=== PATIENT | female | born 1955 | race Caucasian/White ===

== ENCOUNTER 2019-05-30 05:06 | Day surgery (SDC) | payer BC, SELFPAY ==
[2019-05-30] VITALS (8 sets, daily range): BP systolic 123–158; BP diastolic 75–99; PULSE 55–85; RESP 14–19; TEMP 36.9; O2SAT 95–98; BMI 34.3
--- NOTE | 2019-05-30 07:00 | ECG_ITS ---
Measurements Intervals [place] Rate: 90 P: [place]: 0 QRS: -3 QRSD: 90 T: -10 QT: 353 QTc: 432 Interpretive Statements ATRIAL FLUTTER/TACHYCARDIA ANTEROSEPTAL INFARCT, AGE INDETERMINATE BASELINE ARTIFACT- II, III, AVR, AVL, AVF, V1-V3 ABNORMAL ECG Electronically Signed On 05-30-2019 8:42:12 PSYCHOLOGIST by Jacob Sanchez D.O.
[2019-05-30 07:56] LABS: Blood Urea Nitrogen 14 mg/dL (7-17); Calcium 9.8 mg/dL (8.4-10.2); Carbon Dioxide 23 mmol/L (22-30); Chloride 110 mmol/L (98-107); Estimated CRCL calculation 66 ml/min; Estimated Glomerular Filt Rate > 60; Glucose 115 mg/dL (65-105); Magnesium 2.1 mg/dL (1.6-2.3); Potassium 4.4 mmol/L (3.4-5.0); Sodium 139 mmol/L (137-145)
--- NOTE | 2019-05-30 08:03 | SUR.PREOP ---
0715 Patient arrives with daughter to [facility] room [address] Reese. Procedure explained, all questions answered, EKG taken patient remains in A Fib, IV started, labs drawn and sent, consent signed and vitals obtained.
--- NOTE | 2019-05-30 08:33 | P.SEDATION_ITS ---
Moderate Sedation Note-Pt Data Patient Data Diagnosis: A persistent atrial flutter History of atrial fibrillation Present Complaint: Palpitations Procedure to be performed/Plan: DC cardioversion Allergies Allergy/AdvReac Type Severity Reaction Status Date / Time erythromycin base Allergy Unknown Verified 05/03/18 13:18 hydrocodone Allergy Unknown Verified 05/03/18 13:18 Macrolide Antibiotics Allergy Unknown Verified 05/03/18 13:18 morphine Allergy Unknown Verified 05/03/18 13:17 Home Medications Medication Instructions Recorded Confirmed Type albuterol sulfate [ProAir HFA] 2 puff INHALATION QID PRN 05/29/19 05/29/19 H istory amlodipine 5 mg PO DAILY 05/29/19 05/29/19 History budesonide-formoterol [Symbicort] 2 puff INHALATION Q12H 05/29/19 05/29/19 History ferrous sulfate 325 mg PO TID 05/29/19 05/29/19 History multivitamin 1 tablet PO DAILY 05/29/19 05/29/19 History omeprazole magnesium [Prilosec OTC] 20 mg PO DAILY 05/29/19 05/29/19 History potassium chloride 10 meq PO DAILY 05/29/19 05/29/19 History rivaroxaban [Xarelto] 20 mg PO DAILY 05/29/19 05/29/19 History sotalol [Betapace] 80 mg PO BID 05/29/19 05/29/19 History Sedation/Anesthesia: No previous sedation/anesthesia problems (including family history). [facility] Family History Family History (Updated 05/03/18 @ 13:19 by DOCTOR UNKNOWN) Mother Family history of schizophrenia Hypertension Sibling Hypertension Father Patient's father is Social History Social History Smoking status: Never smoker Alcohol intake: never Mod Sed Physical Exam Physical Exam Pre Procedural Exam: Normal: Appearance, Neck, Throat, Airway, Lungs, Heart Size, Heart Rate, Neuro Exam and Extremities and Variation: Heart Rhythm Hours since solid foods: 12 Hours since liquid intake: 12 Internal Medicine - PN: Obj Da Vital Signs Vital Signs: Vital Signs - 24 hr 05/30/19 07:44 Temperature 36.9 C Pulse Rate 85 Respiratory Rate 16 Blood Pressure 148/99 H Pulse Oximetry 96 Labs CBC & Chem 7: 05/30/19 07:12 Labs: Laboratory Results - last 24 hr 05/30/19 07:12 Sodium 139 Potassium 4.4 Chloride 110 H Carbon Dioxide 23 BUN 14 Creatinine 0.70 Estim Creat Clear Calc 66 Estimated GFR > 60 Glucose 115 H Calcium 9.8 Magnesium 2.1 ASA Classification/Sedation ASA Classification/Sedation ASA Class: II Emergent: No Risks: Risks, benefits and alternatives explained and patient/family accepted p juan for sedation. Patient re-evaluated immediately prior to sedation.
--- NOTE | 2019-05-30 08:51 | P.PCNCC_ITS ---
Cardiac Cath Procedure Note Date of procedure:: 05/30/19 Performing physician:: Jacob Reese MD Indication:: Atrial flutter History of atrial fibrillation Brief clinical history:: 64-year-old woman with history of atrial fibrillation with cardioversion previously. Presents with symptomatic recurrence of palpitations and found to be in persistent atrial flutter Procedure Procedure performed:: DC cardioversion Sedation/Medication given:: Propofol in aliquots with total dosage of 70 mg Case start time 8:43 a.m. Case end time 8:46 a.m. Sedation provided by trained observer Viola Vincent RN Estimated blood loss:: 0 Procedure note:: The patient was admitted to the nitriles lab technician holding area in the postabsorptive state. Defibrillator patches were placed in AP position. She was then sedated with a total of 70 mg of propofol. Patient was then counter shock in a synchronized fashion with 200 joules x1 attempt restoring normal sinus rhythm Findings:: Successful gnosticist of sinus rhythm as detailed above Conclusion:: Successful uncomplicated DC cardioversion of atrial flutter to sinus rhythm using 200 joules x1 shock
--- NOTE | 2019-05-30 09:30 | ECG_ITS ---
Measurements Intervals [place] Rate: 58 P: -9 [place]: 187 QRS: 2 QRSD: 88 T: 33 QT: 410 QTc: 404 Interpretive Statements SINUS BRADYCARDIA ATRIAL PREMATURE COMPLEXES CANNOT RULE OUT SEPTAL INFARCT, AGE INDETERMINATE BORDERLINE ST-T WAVE ABNORMALITY- ANT/INF LEADS ABNORMAL ECG Electronically Signed On 05-30-2019 18:19:43 IDEA WORKER by Jacob Sanchez D.O.
--- NOTE | 2019-05-30 10:13 | SUR.PHASEII ---
1010 IV dc'd. Detailed written and verbal discharge instructions reviewed w patient and daughter at bedside.
--- NOTE | 2019-05-30 10:59 | SUR.PHASEII ---
1030 Pt taken out in wheelchair.
== END 2019-05-30 10:00 | disposition home or self-care (01) ==
PROVIDERS: Visit Provider Specialist
PROC: 5A2204Z Restoration of Cardiac Rhythm, Single (ICD-10-PCS; principal; 2019-05-30 08:30)
DX: I48.92 Unspecified atrial flutter (principal); Z79.01 Long term (current) use of anticoagulants
CPT/HCPCS: 36415; 80048; 83735; 92960; 93005; J2704; J7040

== ENCOUNTER 2019-09-25 08:54 | Outpatient (CLI) | payer BC, SELFPAY ==
--- NOTE | ~2019-09-25 | CT_ITS ---
EXAMINATION: CT abdomen pelvis w con DATE: 09/25/2019 09:35 INDICATION: Malignant neoplasm of the ascending colon. TECHNIQUE: Computed tomography (CT) of the abdomen and pelvis was performed back of Visipaque intrave nous contrast. The dose-length product was 695.00 mGy-cm. COMPARISON: PET/CT dated 01/28/2019 FINDINGS: Mild atelectasis at the lingula and right middle lobe. Heart size is normal. No pericardial or pleura l effusion. Liver, gallbladder, spleen, pancreas and bilateral adrenal glands are normal. No signific ant interval change in bilateral subcentimeter low-attenuation renal cysts. Postoperative change of p rior right hemicolectomy with right lower quadrant ileocolic anastomosis. Bowels are otherwise unrema rkable with no wall thickening or obstruction. Bladder is normal. 3.7 cm fibroid on the posterior wal l of the lower uterine segment. Bilateral adnexa are unremarkable. No free intraperitoneal gas or flu id. No pathologically enlarged abdominal or pelvic lymphadenopathy. The previously enlarged central m esenteric lymph node is no longer identified and has likely decreased in size. Small fat-containing i nfraumbilical ventral hernia. Mild lumbar spondylosis. IMPRESSION: 1. Resolution of the prior enlargement of a mesenteric lymph node which may have been reactive or res ponse to treatment of metastatic disease. No evident metastatic disease in the current study. Reviewed, dictated and finalized at location A. IMPRESSION: 1. Resolution of the prior enlargement of a mesenteric lymph node which may hav e been reactive or response to treatment of metastatic disease. No evident meta static disease in the current study.
[2019-09-25 09:22] LABS: Estimated Glomerular Filt Rate > 60
== END 2019-09-25 08:55 | disposition home or self-care (01) ==
LOC: ANHIMG 09:00
PROVIDERS: PCP Internal Medicine; Visit Provider Internal Medicine Hematology & Oncology
DX: C18.2 Malignant neoplasm of ascending colon (principal)
CPT/HCPCS: 36415; 74177; Q9967

== ENCOUNTER 2019-09-25 09:43 | Outpatient (CLI) | payer BC, SELFPAY ==
[2019-09-25 09:59] LABS: Basophils Absolute Auto 0.1 K/mm3 (0.0-0.1); Basophils Percent Auto 1.4 % (0.2-1.2); Eosinophils Absolute Auto 0.3 K/mm3 (0-0.3); Eosinophils Percent Auto 7.8 % (0-4.4); Hematocrit 38.7 % (37.0-47.0); Hemoglobin 12.8 g/dL (12.0-15.0); Immature Granulocyte Absolute 0.01 K/mm3 (0.00-0.031); Immature Granulocyte Percent A 0.2 % (0-0.5); Lymphocytes Absolute Auto 1.02 K/mm3 (0.9-3.2); Lymphocytes Percent Auto 24.2 % (18.3-44.2); Mean Corpuscular HGB Conc 33.1 g/dl (32-36); Mean Corpuscular Hemoglobin 30.5 pg (26-34); Mean Corpuscular Volume 92.1 fl (80-100); Mean Platelet Volume 9.5 fl (7.4-10.4); Monocytes Absolute Auto 0.5 K/mm3 (0.1-0.6); Monocytes Percent Auto 11.6 % (2.6-8.5); Neutrophils Absolute Auto 2.3 K/mm3 (1.3-6.7); Neutrophils Percent Auto 54.8 % (45.5-73.1); Platelet Count Result 184 k/mm3 (150-375); Red Cell Distribution Width 13.1 % (11.5-14.5); White Blood Count 4.2 K/mm3 (4.5-10.0)
[2019-09-25 12:18] LABS: Alanine Aminotransferase 59 U/L (4-35); Albumin Level 3.8 g/dL (3.5-5.1); Alkaline Phosphatase 317 U/L (38-126); Aspartate Amino Transferase 45 U/L (14-36); Bilirubin,Total 0.6 mg/dL (0.2-1.3); Blood Urea Nitrogen 14 mg/dL (7-17); Calcium 9.6 mg/dL (8.4-10.2); Carbon Dioxide 24 mmol/L (22-30); Chloride 106 mmol/L (98-107); Estimated Glomerular Filt Rate > 60; Glucose 103 mg/dL (65-105); Potassium 4.7 mmol/L (3.4-5.0); Sodium 138 mmol/L (137-145)
[2019-09-25 12:46] LABS: Carcinoembryonic Antigen 1.3 ng/mL (0.0-3.0)
[2019-09-26 17:36] LABS: GGT 118 U/L (3-65)
== END 2019-09-25 09:44 | disposition home or self-care (01) ==
PROVIDERS: PCP Internal Medicine; Visit Provider Internal Medicine Hematology & Oncology
DX: C18.2 Malignant neoplasm of ascending colon (principal)
CPT/HCPCS: 36415; 80053; 82378; 82977; 85025

== ENCOUNTER 2019-12-29 10:19 | Outpatient (CLI) | payer BC, SELFPAY ==
[2019-12-29 10:37] LABS: Basophils Absolute Auto 0.1 K/mm3 (0.0-0.1); Basophils Percent Auto 1.7 % (0.2-1.2); Eosinophils Absolute Auto 0.3 K/mm3 (0-0.3); Hematocrit 42.3 % (37.0-47.0); Hemoglobin 14.2 g/dL (12.0-15.0); Immature Granulocyte Absolute 0.01 K/mm3 (0.00-0.031); Immature Granulocyte Percent A 0.2 % (0-0.5); Lymphocytes Absolute Auto 1.29 K/mm3 (0.9-3.2); Lymphocytes Percent Auto 24.8 % (18.3-44.2); Mean Corpuscular HGB Conc 33.6 g/dl (32-36); Mean Corpuscular Hemoglobin 29.8 pg (26-34); Mean Corpuscular Volume 88.9 fl (80-100); Mean Platelet Volume 9.5 fl (7.4-10.4); Monocytes Absolute Auto 0.6 K/mm3 (0.1-0.6); Monocytes Percent Auto 11.5 % (2.6-8.5); Neutrophils Percent Auto 56.8 % (45.5-73.1); Platelet Count Result 212 k/mm3 (150-375); Red Blood Count 4.76 M/mm3 (4.2-5.4); White Blood Count 5.2 K/mm3 (4.5-10.0)
[2019-12-29 12:41] LABS: Alanine Aminotransferase 30 U/L (4-35); Albumin Level 4.2 g/dL (3.5-5.1); Alkaline Phosphatase 187 U/L (38-126); Anion Gap 13.8 mmol/L (7-16); Aspartate Amino Transferase 39 U/L (14-36); Bilirubin,Total 0.5 mg/dL (0.2-1.3); Blood Urea Nitrogen 19 mg/dL (7-17); Carbon Dioxide 23 mmol/L (22-30); Chloride 107 mmol/L (98-107); Estimated Glomerular Filt Rate > 60; Glucose 104 mg/dL (65-105); Potassium 4.8 mmol/L (3.4-5.0); Sodium 139 mmol/L (137-145)
[2019-12-29 13:12] LABS: Carcinoembryonic Antigen 0.7 ng/mL (0.0-3.0)
== END 2019-12-29 10:20 | disposition home or self-care (01) ==
PROVIDERS: Visit Provider Internal Medicine Hematology & Oncology
DX: C18.2 Malignant neoplasm of ascending colon (principal)
CPT/HCPCS: 36415; 80053; 82378; 85025

== ENCOUNTER 2020-04-01 08:24 | Outpatient (CLI) | payer BC, SELFPAY ==
--- NOTE | ~2020-04-01 | CT_ITS ---
EXAMINATION: CT abdomen pelvis w con DATE: 04/01/2020 09:12 INDICATION: Colon cancer restaging; history of malignant neoplasm of ascending colon TECHNIQUE: Computed tomography (CT) of the abdomen and pelvis was performed with 100 cc Omnipaque 350 intravenous contrast. Automated exposure control and iterative reconstruction technique were employe d. Exam dose: 959.44 mGy-cm total exam DLP. COMPARISON: 09/25/2019 CT abdomen pelvis FINDINGS: Mild discoid atelectasis or scarring at the lung bases. Cardiomegaly. No pericardial or pleural effusion. Fat-containing right foramen of Bochdalek hernia. There are multiple small stones in the dependent aspect of the gallbladder. Approximately 4 mm hepatic cyst. The liver, spleen, pancreas, and adrenal glands are otherwise unremarkable. 8.5 mm exophytic upper pole right renal cyst. Approximately 2 mm lower pole right renal cyst. 11 mm upper pole left renal cyst. 8 mm and 6.7 mm lower pole left renal cysts. No urinary tract calculus or hydroureteronephrosis. The urinary bladder is evacuated. The uterus and adnexal areas are unremarkable. Normal caliber of the abdominal aorta. No intraperitoneal or retroperitoneal or pelvic mass lesion or adenopathy or ascites. Status post right partial colectomy. No bowel obstruction, bowel wall thickening, pneumatosis or intr aperitoneal free air. Small fat-containing umbilical hernia. Infraumbilical fat-containing abdominal wall hernia. Included skeletal structures are unremarkable; no suspicious osteolytic or osteoblastic lesions. IMPRESSION: Cardiomegaly Cholelithiasis Small hepatic cysts Bilateral renal cysts Status post right partial colectomy Reviewed, dictated and finalized at Location A. Reviewed, dictated and finalized at location A.
[2020-04-01 09:01] LABS: Estimated Glomerular Filt Rate > 60
[2020-04-01 09:44] LABS: Basophils Absolute Auto 0.1 K/mm3 (0.0-0.1); Basophils Percent Auto 2.1 % (0.2-1.2); Eosinophils Absolute Auto 0.5 K/mm3 (0-0.3); Eosinophils Percent Auto 10.5 % (0-4.4); Hematocrit 40.4 % (37.0-47.0); Hemoglobin 13.6 g/dL (12.0-15.0); Immature Granulocyte Absolute 0.02 K/mm3 (0.00-0.031); Immature Granulocyte Percent A 0.4 % (0-0.5); Lymphocytes Absolute Auto 0.72 K/mm3 (0.9-3.2); Lymphocytes Percent Auto 15.1 % (18.3-44.2); Mean Corpuscular HGB Conc 33.7 g/dl (32-36); Mean Corpuscular Hemoglobin 30.1 pg (26-34); Mean Corpuscular Volume 89.4 fl (80-100); Mean Platelet Volume 9.5 fl (7.4-10.4); Monocytes Absolute Auto 0.5 K/mm3 (0.1-0.6); Monocytes Percent Auto 11.3 % (2.6-8.5); Neutrophils Absolute Auto 2.9 K/mm3 (1.3-6.7); Neutrophils Percent Auto 60.6 % (45.5-73.1); Platelet Count Result 204 k/mm3 (150-375); Red Blood Count 4.52 M/mm3 (4.2-5.4); Red Cell Distribution Width 12.8 % (11.5-14.5); White Blood Count 4.8 K/mm3 (4.5-10.0)
[2020-04-01 12:43] LABS: Alanine Aminotransferase 27 U/L (4-35); Albumin Level 3.9 g/dL (3.5-5.1); Alkaline Phosphatase 205 U/L (38-126); Anion Gap 10 mmol/L (8-16); Aspartate Amino Transferase 35 U/L (14-36); Bilirubin,Total 0.8 mg/dL (0.2-1.3); Blood Urea Nitrogen 14 mg/dL (7-17); Calcium 9.8 mg/dL (8.4-10.2); Carbon Dioxide 23 mmol/L (22-30); Chloride 106 mmol/L (98-107); Estimated Glomerular Filt Rate > 60; Glucose 106 mg/dL (65-105); Potassium 4.2 mmol/L (3.4-5.0); Sodium 139 mmol/L (137-145)
[2020-04-01 13:12] LABS: Carcinoembryonic Antigen 0.9 ng/mL (0.0-3.0)
== END 2020-04-01 08:25 | disposition home or self-care (01) ==
PROVIDERS: Visit Provider Internal Medicine Hematology & Oncology
DX: C18.2 Malignant neoplasm of ascending colon (principal); I51.7 Cardiomegaly; N28.1 Cyst of kidney, acquired; K76.89 Other specified diseases of liver; K80.20 Calculus of gallbladder without cholecystitis without obstruction
CPT/HCPCS: 74177; 80053; 82378; 85025; Q9967

== ENCOUNTER 2020-05-03 18:02 | Emergency (ER) | payer BC, SELFPAY ==
--- NOTE | ~2020-05-03 | CT_ITS ---
EXAMINATION: CT abdomen pelvis wo con DATE: 05/03/2020 19:14 INDICATION: Low back pain and hematuria TECHNIQUE: Computed tomography (CT) of the abdomen and pelvis was performed without intravenous contr ast. Automated exposure control and iterative reconstruction technique were employed. The dose-length product was 1014.37 mGy-cm. COMPARISON: 04/01/2020 FINDINGS: Mild left basilar atelectasis. Chronic fat containing right posterior diaphragmatic hernia. Borderlin e heart size with left atrial enlargement. No pericardial or pleural effusion. Liver, spleen, pancrea s and bilateral adrenal glands are normal. Multiple small calcified gallstones at the dependent aspec t of the fundus of the otherwise normal gallbladder. Small bilateral renal cysts the largest on the l eft measuring 12 mm. Kidneys and ureters are otherwise normal with no urolithiasis, hydroureteronephr osis or perinephric/ureteral stranding. Postoperative change right hemicolectomy with ileocolic anast omosis in the right lower quadrant. No abnormal bowel wall thickening or obstruction. Fibroid uterus. Bilateral adnexa are unremarkable. Partially decompressed bladder is normal. Minimal ascites in the pelvis. No abscess or free intraperitoneal gas. Small fat-containing umbilical and infraumbilical katie tral hernias. No pathologically enlarged abdominal or pelvic lymphadenopathy. Mild lumbar levoscolios is with mild spondylosis. IMPRESSION: 1. No acute intra-abdominal/pelvic process. 2. Cholelithiasis. 3. Fibroid uterus. Reviewed, dictated and finalized at location A. 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
[2020-05-03 18:04] VITALS: BP 163/119; PULSE 112; RESP 18; TEMP 36.2; O2SAT 100
[2020-05-03 18:27] LABS: Basophils Absolute Auto 0.1 K/mm3 (0.0-0.1); Basophils Percent Auto 1.6 % (0.2-1.2); Eosinophils Absolute Auto 0.2 K/mm3 (0-0.3); Eosinophils Percent Auto 2.8 % (0-4.4); Hemoglobin 12.6 g/dL (12.0-15.0); Immature Granulocyte Absolute 0.01 K/mm3 (0.00-0.031); Immature Granulocyte Percent A 0.2 % (0-0.5); Lymphocytes Absolute Auto 1.24 K/mm3 (0.9-3.2); Lymphocytes Percent Auto 21.6 % (18.3-44.2); Mean Corpuscular HGB Conc 34.1 g/dl (32-36); Mean Corpuscular Hemoglobin 29.9 pg (26-34); Mean Corpuscular Volume 87.9 fl (80-100); Mean Platelet Volume 10.2 fl (7.4-10.4); Monocytes Absolute Auto 0.9 K/mm3 (0.1-0.6); Monocytes Percent Auto 15.1 % (2.6-8.5); Neutrophils Absolute Auto 3.4 K/mm3 (1.3-6.7); Neutrophils Percent Auto 58.7 % (45.5-73.1); Platelet Count Result 189 k/mm3 (150-375); Red Blood Count 4.21 M/mm3 (4.2-5.4); Red Cell Distribution Width 12.9 % (11.5-14.5); White Blood Count 5.8 K/mm3 (4.5-10.0)
[2020-05-03 18:37] LABS: INR 3.9; Prothrombin Time 38.8 Seconds (11.1-14.7)
[2020-05-03 18:38] LABS: Partial Thromboplastin Time 41.1 SECONDS (22.3-36.8)
[2020-05-03 18:39] LABS: Add Urine Microscopic? YES; Appearance Urine Clear (Clear); Bacteria Urine Trace /hpf; Bilirubin Urine Negative (Negative); Blood Urine 3+ (Negative); Color Urine Red (Yellow); Glucose Urine UA Negative (Negative); Ketones Urine Negative (Negative); Leukocyte Esterase Ur Trace LEU/UL (Negative); Mucus Urine Rare /lpf; Nitrate Urine Negative (Negative); Protein Urine 2+ mg/dL (Negative); RBC Urine >75 /hpf (0-2); Specific Grav Ur 1.011 (1.001-1.035); Squamous Epithelial Cell Urine Occasional /hpf (Few); Urobilinogen Urine Negative mg/dL (<2.0); WBC Urine 21-30 /hpf
[2020-05-03 18:40] LABS: Anion Gap 9 mmol/L (8-16); Blood Urea Nitrogen 25 mg/dL (7-17); Calcium 9.2 mg/dL (8.4-10.2); Carbon Dioxide 20 mmol/L (22-30); Chloride 106 mmol/L (98-107); Estimated CRCL calculation 49 ml/min; Estimated Glomerular Filt Rate 55; Glucose 116 mg/dL (65-105); Potassium 4.5 mmol/L (3.4-5.0); Sodium 135 mmol/L (137-145)
--- NOTE | 2020-05-03 18:47 | ED.GENADULT ---
HPI - General Adult General Chief complaint: Urogenital-Female Stated complaint: elevated INR, hematuria Time Seen by Provider: 05/03/20 18:46 Source: patient Mode of arrival: ambulatory Limitations: no limitations History of Present Illness HPI narrative: 65-year-old female with a history of A. fib and on Coumadin (since November 2019) presents today with hematuria that is painless. She does complain of low back pain, no frequency or urgency. She has had her INR checked frequently in the last week and has been as high as 5.3, she did not have any bleeding at that time. Her Coumadin was adjusted at that time from 5 mg a day to 2.5 mg a day. She has had 1 dose at that level and has not taken any today. Onset (ago): hour(s) Radiation: non-radiation Treatments prior to arrival: none Related Data Home Medications Medication Instructions Recorded Confirmed albuterol sulfate [ProAir HFA] 2 puff INHALATION QID PRN 05/29/19 06/05/19 amlodipine 5 mg PO DAILY 05/29/19 06/05/19 ferrous sulfate 325 mg PO TID 05/29/19 06/05/19 omeprazole magnesium [Prilosec OTC] 20 mg PO DAILY 05/29/19 06/05/19 metoprolol succinate PO 05/03/20 warfarin 05/03/20 05/03/20 Allergies Allergy/AdvReac Type Severity Reaction Status Date / Time erythromycin base Allergy Unknown Rash Verified 05/03/20 18:07 Macrolide Antibiotics Allergy Unknown Rash Verified 05/03/20 18:07 morphine Allergy Unknown Anaphylaxis Verified 05/03/20 18:07 hydrocodone AdvReac Unknown Drowsy Verified 05/03/20 18:07 Review of Systems Review of Systems: All systems reviewed & are unremarkable except as noted in HPI and below PMFSH Past Medical History Medical History Atrial fibrillation had cardio version 05/22 Bronchitis Colon cancer GERD (gastroesophageal reflux disease) H/O colon cancer, stage I Hypertension Family History Family History Mother Family history of schizophrenia Hypertension Sibling Hypertension Father Patient's father is Social History Social History (Updated 05/03/20 @ 19:05 by CELESTE Burroughs Smoking status: Never smoker Alcohol intake: never Substance use: never Living arrangements: with family 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 patient): Female Exam Const: General: no acute distress and alert Orientation/consciousness: patient oriented x3 HENMT: Head: normal to inspection Eyes: Pupils: Equal, round and reactive pupils present Resp: Effort & Inspection: normal respiratory effort Auscultation: clear to auscultation bilaterally Cardio: Rate: regular rate Rhythm: abnormal rhythm irregularly irregular GI: GI Palp: Yes Soft to palpation : General: Yes CVA tenderness (mild) bilateral Urinary Catheter: Urinary Catheter: urine red Skin: General skin exam: normal color Extrem: General: normal to inspection Psych: Mental Status: mental status grossly normal Course Course Emergency Course: CT results reviewed with patient and daughter. Spoke with Dr. Vásquez, urology regarding painless hematuria. He reviewed CT scan results and lab results, recommends outpatient hematuria work-up for possible bladder tumor. Plan discussed with patient, she is in agreement. Continue warfarin tonight at a lower dose and follow-up with cardiology in the morning. Vital Signs Vital signs: Vital Signs Temperature 36.2 C L 05/03/20 18:04 Pulse Rate 112 H 05/03/20 18:04 Respiratory Rate 18 05/03/20 18:04 Blood Pressure 163/119 H 05/03/20 18:04 Pulse Oximetry 100 05/03/20 18:04 Temperature 36.2 C L 05/03/20 18:04 Pulse Rate 112 H 05/03/20 18:04 Respiratory Rate 18 05/03/20 18:04 Blood Pressure 163/119 H 05/03/20 18:04 Pulse Oximetry 100 05/03/20 18:04 Medical Decision Making Vital
[2020-05-03 21:13] VITALS: BP 148/100; PULSE 83; RESP 18; TEMP 36.5; O2SAT 98
== END 2020-05-03 21:15 | disposition home or self-care (01) ==
PROVIDERS: Emergency Medicine; Emergency Provider Emergency Medicine; PCP Nurse Practitioner Family
DX: R31.0 Gross hematuria (principal); Z79.01 Long term (current) use of anticoagulants; I48.91 Unspecified atrial fibrillation; Z85.038 Personal history of other malignant neoplasm of large intestine; K21.9 Gastro-esophageal reflux disease without esophagitis; I10 Essential (primary) hypertension
CPT/HCPCS: 36415; 74176; 80048; 81001; 85025; 85610; 85730; 87086; 99284

== ENCOUNTER 2020-10-04 08:48 | Outpatient (CLI) | payer BC, SELFPAY ==
[2020-10-04 09:12] LABS: Basophils Absolute Auto 0.2 K/mm3 (0.0-0.1); Basophils Percent Auto 2.3 % (0.2-1.2); Eosinophils Absolute Auto 0.4 K/mm3 (0-0.3); Eosinophils Percent Auto 5.5 % (0-4.4); Hematocrit 40.2 % (37.0-47.0); Hemoglobin 13.5 g/dL (12.0-15.0); Immature Granulocyte Absolute 0.02 K/mm3 (0.00-0.031); Immature Granulocyte Percent A 0.3 % (0-0.5); Lymphocytes Absolute Auto 1.13 K/mm3 (0.9-3.2); Lymphocytes Percent Auto 16.4 % (18.3-44.2); Mean Corpuscular HGB Conc 33.6 g/dl (32-36); Mean Corpuscular Hemoglobin 29.4 pg (26-34); Mean Corpuscular Volume 87.6 fl (80-100); Mean Platelet Volume 9.7 fl (7.4-10.4); Monocytes Absolute Auto 0.6 K/mm3 (0.1-0.6); Monocytes Percent Auto 9.3 % (2.6-8.5); Neutrophils Absolute Auto 4.6 K/mm3 (1.3-6.7); Neutrophils Percent Auto 66.2 % (45.5-73.1); Platelet Count Result 272 k/mm3 (150-375); Red Blood Count 4.59 M/mm3 (4.2-5.4); Red Cell Distribution Width 12.7 % (11.5-14.5); White Blood Count 6.9 K/mm3 (4.5-10.0)
[2020-10-04 10:20] LABS: Alanine Aminotransferase 27 U/L (4-35); Albumin Level 4.1 g/dL (3.5-5.1); Alkaline Phosphatase 187 U/L (38-126); Anion Gap 9 mmol/L (8-16); Aspartate Amino Transferase 34 U/L (14-36); Bilirubin,Total 0.5 mg/dL (0.2-1.3); Blood Urea Nitrogen 15 mg/dL (7-17); Calcium 10.1 mg/dL (8.4-10.2); Carbon Dioxide 25 mmol/L (22-30); Chloride 105 mmol/L (98-107); Estimated Glomerular Filt Rate 55; Glucose 104 mg/dL (65-105); Potassium 3.8 mmol/L (3.4-5.0); Sodium 139 mmol/L (137-145)
[2020-10-04 10:51] LABS: Carcinoembryonic Antigen 0.8 ng/mL (0.0-3.0)
== END 2020-10-04 08:49 | disposition home or self-care (01) ==
PROVIDERS: PCP Nurse Practitioner Family; Visit Provider Internal Medicine Hematology & Oncology
DX: C18.2 Malignant neoplasm of ascending colon (principal)
CPT/HCPCS: 36415; 80053; 82378; 85025

== ENCOUNTER 2021-03-09 08:05 | Outpatient (CLI) | payer BC, SELFPAY ==
--- NOTE | ~2021-03-09 | CT_ITS ---
EXAMINATION: CT abdomen pelvis wo con DATE: 03/09/2021 08:43 INDICATION: Malignant neoplasm of ascending colon TECHNIQUE: Computed tomography (CT) of the abdomen and pelvis was performed without intravenous contr ast. Automated exposure control and iterative reconstruction technique were employed. Exam dose: 105 5.86 mGy-cm total exam DLP. COMPARISON: 05/03/2020 CT abdomen pelvis FINDINGS: Fat-containing right foramen of Bochdalek hernia. No pericardial or pleural effusion. There are multiple small stones in the dependent aspect of the gallbladder. No gallbladder wall thick ening or pericholecystic fluid or fat stranding. No bile duct or pancreatic duct dilatation. No hepatic, splenic, pancreatic, and adrenal or suspicious renal space occupying mass lesion is evide nt on this limited noncontrast examination. Approximately 1 cm upper pole exophytic cyst of each kidney. 6 mm exophytic cyst of the lower pole of the left kidney. No urinary tract calculus or hydroureteronephrosis. Normal caliber of the abdominal aorta. No intraperitoneal or retroperitoneal or pelvic mass lesion or adenopathy or ascites. The uterus, adnexal areas and urinary bladder are unremarkable. Small sliding hiatal hernia. There is partial resection of the right colon; history of ascending colon neoplasm. No bowel obstruct ion, bowel wall thickening, pneumatosis or intraperitoneal free air is detected. Small fat-containing umbilical hernia. No suspicious osteolytic or osteoblastic lesions. IMPRESSION: Cholelithiasis Status post right partial colectomy for history of ascending colon limits the Bilateral renal cysts Small sliding hiatal hernia Reviewed, dictated and finalized at Location A. Reviewed, dictated and finalized at location A.
[2021-03-09 08:34] LABS: Estimated Glomerular Filt Rate 28
[2021-03-09 09:17] LABS: Basophils Absolute Auto 0.1 K/mm3 (0.0-0.1); Basophils Percent Auto 1.9 % (0.2-1.2); Eosinophils Absolute Auto 0.1 K/mm3 (0-0.3); Eosinophils Percent Auto 2.9 % (0-4.4); Hematocrit 37.5 % (37.0-47.0); Hemoglobin 12.5 g/dL (12.0-15.0); Immature Granulocyte Absolute 0.01 K/mm3 (0.00-0.031); Immature Granulocyte Percent A 0.2 % (0-0.5); Lymphocytes Percent Auto 14.4 % (18.3-44.2); Mean Corpuscular HGB Conc 33.3 g/dl (32-36); Mean Corpuscular Hemoglobin 30.1 pg (26-34); Mean Corpuscular Volume 90.4 fl (80-100); Mean Platelet Volume 10.5 fl (7.4-10.4); Monocytes Absolute Auto 0.6 K/mm3 (0.1-0.6); Monocytes Percent Auto 14.6 % (2.6-8.5); Neutrophils Absolute Auto 2.8 K/mm3 (1.3-6.7); Platelet Count Result 202 k/mm3 (150-375); Red Blood Count 4.15 M/mm3 (4.2-5.4); Red Cell Distribution Width 14.5 % (11.5-14.5); White Blood Count 4.2 K/mm3 (4.5-10.0)
[2021-03-09 13:27] LABS: Alanine Aminotransferase 58 U/L (4-35); Albumin Level 4.2 g/dL (3.5-5.1); Alkaline Phosphatase 197 U/L (38-126); Anion Gap 8 mmol/L (8-16); Aspartate Amino Transferase 73 U/L (14-36); Bilirubin,Total 0.8 mg/dL (0.2-1.3); Blood Urea Nitrogen 31 mg/dL (7-17); Calcium 9.4 mg/dL (8.4-10.2); Carbon Dioxide 24 mmol/L (22-30); Chloride 108 mmol/L (98-107); Estimated Glomerular Filt Rate 32; Glucose 99 mg/dL (65-110); Potassium 3.9 mmol/L (3.4-5.0); Sodium 140 mmol/L (137-145)
[2021-03-09 13:54] LABS: Carcinoembryonic Antigen 2.2 ng/mL (0.0-3.0)
== END 2021-03-09 08:06 | disposition home or self-care (01) ==
PROVIDERS: PCP Nurse Practitioner Family; Visit Provider Internal Medicine Hematology & Oncology
DX: C18.2 Malignant neoplasm of ascending colon (principal); K80.20 Calculus of gallbladder without cholecystitis without obstruction; N28.1 Cyst of kidney, acquired; K44.9 Diaphragmatic hernia without obstruction or gangrene
CPT/HCPCS: 74176; 80053; 82378; 85025

== ENCOUNTER 2021-09-07 12:41 | Outpatient (CLI) | payer BC, SELFPAY ==
[2021-09-07 13:06] LABS: Basophils Absolute Auto 0.1 K/mm3 (0.0-0.1); Basophils Percent Auto 1.4 % (0.2-1.2); Eosinophils Absolute Auto 0.2 K/mm3 (0-0.3); Eosinophils Percent Auto 2.6 % (0-4.4); Hematocrit 38.8 % (37.0-47.0); Hemoglobin 12.6 g/dL (12.0-15.0); Immature Granulocyte Absolute 0.03 K/mm3 (0.00-0.031); Immature Granulocyte Percent A 0.5 % (0-0.5); Lymphocytes Percent Auto 14.4 % (18.3-44.2); Mean Corpuscular HGB Conc 32.5 g/dl (32-36); Mean Corpuscular Hemoglobin 30.4 pg (26-34); Mean Corpuscular Volume 93.7 fl (80-100); Mean Platelet Volume 10.1 fl (7.4-10.4); Monocytes Absolute Auto 0.6 K/mm3 (0.1-0.6); Monocytes Percent Auto 9.6 % (2.6-8.5); Neutrophils Absolute Auto 4.5 K/mm3 (1.3-6.7); Neutrophils Percent Auto 71.5 % (45.5-73.1); Platelet Count Result 218 k/mm3 (150-375); Red Blood Count 4.14 M/mm3 (4.2-5.4); Red Cell Distribution Width 13.5 % (11.5-14.5); White Blood Count 6.3 K/mm3 (4.5-10.0)
[2021-09-07 16:22] LABS: Alanine Aminotransferase 39 U/L (4-35); Albumin Level 4.3 g/dL (3.5-5.1); Alkaline Phosphatase 187 U/L (38-126); Anion Gap 6 mmol/L (8-16); Aspartate Amino Transferase 48 U/L (14-36); Bilirubin,Total 0.6 mg/dL (0.2-1.3); Blood Urea Nitrogen 29 mg/dL (7-17); Calcium 9.7 mg/dL (8.4-10.2); Carbon Dioxide 23 mmol/L (22-30); Chloride 104 mmol/L (98-107); Estimated Glomerular Filt Rate 28; Glucose 97 mg/dL (65-110); Potassium 4.6 mmol/L (3.4-5.0); Sodium 133 mmol/L (137-145)
[2021-09-07 16:51] LABS: Carcinoembryonic Antigen 1.7 ng/mL (0.0-3.0)
== END 2021-09-07 12:42 | disposition home or self-care (01) ==
PROVIDERS: PCP Nurse Practitioner Family; Visit Provider Internal Medicine Hematology & Oncology
DX: C18.2 Malignant neoplasm of ascending colon (principal)
CPT/HCPCS: 36415; 80053; 82378; 85025

== ENCOUNTER 2021-10-06 08:19 | Outpatient (CLI) | payer BC, SELFPAY ==
--- NOTE | 2021-10-06 12:52 | P.PCNPFT_ITS ---
PFT Procedure Performed PFT Procedure Performed Spirometry with Pre/Post Bronchodilator Flow Vol Loop PFT Interpretation This is a pulmonary function test with pre and post-bronchodilator spirometry. The test was performed and results interpreted in accordance with the 2019 and 2005 ATS/ERS Task Force guidelines respectively using the Global Lung Function Initiative-2012 reference equations. Patient demonstrated good effort and cooperation. Reproducibility criteria were met. The quality of the pre bronchodilator spirometry maneuver was Grade A and post bronchodilator spirometry maneuver was Grade A. Findings: Spirometry: There is decreased maximal expiratory airflow with a concave expiratory flow tracing. The contour the inspiratory flow tracing is normal. The pre bronchodilator FEV1 FVC is 2.61 L, 100% predicted. The pre bronchodilator FEV1 is 1.73 L, 84% predicted. Pre bronchodilator FEV1: FVC rat io 66%. The post bronchodilator FVC is 2.73 L, representing a 5% increase. The post bronchodilator FEV1 is 1.89 L, representing a 9% increase. The post bronchodilator FEV1: FVC ratio 69%. Impression: There is a mild obstructive abnormality with a normal FEV1 and without significant improvement after inhaling a single dose of albuterol. A concurrent restrictive abnormality cannot be excluded as lung volumes were not measured. There are no prior studies for comparison
== END 2021-10-06 08:20 | disposition home or self-care (01) ==
LOC: ANHPFT 08:22
PROVIDERS: PCP Nurse Practitioner Family; Visit Provider Nurse Practitioner Gerontology
DX: J44.9 Chronic obstructive pulmonary disease, unspecified (principal); R94.2 Abnormal results of pulmonary function studies
CPT/HCPCS: 94060

== ENCOUNTER 2021-10-21 16:47 | Outpatient (CLI) | payer BC, SELFPAY ==
--- NOTE | ~2021-10-21 | US_ITS ---
US renal BI 10/21/2021 17:15 Procedure: Realtime transabdominal ultrasound of the kidneys and bladder. Indication: Chronic kidney disease Comparison: No prior studies for comparison. Findings: Renal echotexture is normal bilaterally without hydronephrosis, contour deforming mass or r enal calculus. The right kidney measures 10 cm and left kidney measures 9.5 cm. There is a left renal cyst measuring 1.2 cm Bladder within normal limits. Impression: 1: Left renal cyst measuring 1.2 cm. Reviewed, dictated and finalized at location B. Impression: 1: Left renal cyst measuring 1.2 cm.
== END 2021-10-21 16:48 | disposition home or self-care (01) ==
PROVIDERS: PCP Nurse Practitioner Family; Visit Provider Internal Medicine Nephrology
DX: N18.31 Chronic kidney disease, stage 3a (principal); N28.1 Cyst of kidney, acquired
CPT/HCPCS: 76775

== ENCOUNTER 2022-03-14 12:45 | Outpatient (CLI) | payer BC, SELFPAY ==
--- NOTE | ~2022-03-14 | CT_ITS ---
EXAMINATION: CT abdomen pelvis wo con DATE: 03/14/2022 13:00 INDICATION: Malignant neoplasm of ascending colon. TECHNIQUE: Computed tomography (CT) of the abdomen and pelvis was performed without intravenous contr ast. Automated exposure control and iterative reconstruction technique were employed. The dose-length product was 547.17 mGy-cm. COMPARISON: CT abdomen and pelvis 03/09/2021 FINDINGS: The visualized portions of the lung bases demonstrate mild atelectasis. No pleural effusion . There are bilateral posterior diaphragmatic hernias containing fat. There is left atrial enlargemen t of the heart. No pericardial effusion. The liver is normal. There are gallstones in the gallbladder , which is normal in size. The spleen, pancreas, adrenal glands, and kidneys are normal. There is no urolithiasis. There are changes of right hemicolectomy. There are no pathologically enlarged lymph no naga. There is no free intraperitoneal fluid. There is mild thoracolumbar spondylosis. IMPRESSION: 1. No evidence of metastatic disease. Reviewed, dictated and finalized at location A.
== END 2022-03-14 12:46 | disposition home or self-care (01) ==
PROVIDERS: PCP Nurse Practitioner Family; Visit Provider Internal Medicine Hematology & Oncology
DX: C18.2 Malignant neoplasm of ascending colon (principal)
CPT/HCPCS: 74176

== ENCOUNTER 2022-03-14 13:09 | Outpatient (CLI) | payer BC, SELFPAY ==
[2022-03-14 14:41] LABS: Basophils Absolute Auto 0.1 K/mm3 (0.0-0.1); Basophils Percent Auto 1.6 % (0.2-1.2); Eosinophils Absolute Auto 0.1 K/mm3 (0-0.3); Eosinophils Percent Auto 2.6 % (0-4.4); Hematocrit 33.1 % (37.0-47.0); Hemoglobin 11.1 g/dL (12.0-15.0); Immature Granulocyte Absolute 0.02 K/mm3 (0.00-0.031); Immature Granulocyte Percent A 0.4 % (0-0.5); Lymphocytes Absolute Auto 0.83 K/mm3 (0.9-3.2); Lymphocytes Percent Auto 16.9 % (18.3-44.2); Mean Corpuscular HGB Conc 33.5 g/dl (32-36); Mean Corpuscular Hemoglobin 31.6 pg (26-34); Mean Corpuscular Volume 94.3 fl (80-100); Mean Platelet Volume 10.5 fl (7.4-10.4); Monocytes Absolute Auto 0.4 K/mm3 (0.1-0.6); Monocytes Percent Auto 8.1 % (2.6-8.5); Neutrophils Absolute Auto 3.5 K/mm3 (1.3-6.7); Neutrophils Percent Auto 70.4 % (45.5-73.1); Platelet Count Result 218 k/mm3 (150-375); Red Blood Count 3.51 M/mm3 (4.2-5.4); Red Cell Distribution Width 14.6 % (11.5-14.5); White Blood Count 4.9 K/mm3 (4.5-10.0)
[2022-03-14 14:48] LABS: Alanine Aminotransferase 31 U/L (6-35); Alkaline Phosphatase 188 U/L (38-126); Anion Gap 8 mmol/L (8-16); Aspartate Amino Transferase 34 U/L (14-36); Bilirubin,Total 0.5 mg/dL (0.2-1.3); Blood Urea Nitrogen 16 mg/dL (7-17); Calcium 9.5 mg/dL (8.4-10.2); Carbon Dioxide 23 mmol/L (22-30); Chloride 108 mmol/L (98-107); Estimated Glomerular Filt Rate 49; Glucose 101 mg/dL (65-110); Sodium 139 mmol/L (137-145)
[2022-03-14 15:18] LABS: Carcinoembryonic Antigen 8.2 ng/mL (0.0-3.0)
== END 2022-03-14 13:10 | disposition home or self-care (01) ==
LOC: ANHLAB 13:10
PROVIDERS: PCP Nurse Practitioner Family; Visit Provider Internal Medicine Hematology & Oncology
DX: C18.2 Malignant neoplasm of ascending colon (principal)
CPT/HCPCS: 36415; 80053; 82378; 85025

== ENCOUNTER 2022-03-22 09:56 | Outpatient (CLI) | payer BC, SELFPAY ==
--- NOTE | ~2022-03-22 | MMUS_ITS ---
EXAMINATION: MM diagnostic katey BI w lydia, US breast RT limited HISTORY: Probable right breast lump TECHNIQUE: Additional 3-D tomosynthesis images of the breasts were performed and synthetic 2-D images were generated. CAD analysis was submitted and interpreted. High resolution Limited right breast ult rasound was performed. COMPARISON: None BREAST PARENCHYMAL COMPOSITION: Breast composed of scattered areas of fibroglandular density FINDINGS: MAMMOGRAPHIC FINDINGS: There are no suspicious masses, calcifications or architectural distortion in either breast to sugges t malignancy. ULTRASOUND: Limited right breast ultrasound: At 8:00, 7 cm from the nipple, there is an oval hypoechoic mass dinesh uring 5 x 4 x 2 mm with parallel orientation, no posterior features. No internal vascularity. At 8:00 , 7 cm from the nipple, there is a hypoechoic mass with antiparallel configuration measuring 2 x 2 x 2 mm, likely benign. IMPRESSION: 1. Probable benign right breast masses at 8:00, 7 cm from the nipple. 2. Recommend 6 month follow-up Limited right breast ultrasound BI-RADS category 3, probably benign findings. Reviewed, dictated and finalized at location A. IMPRESSION: 1. Probable benign right breast masses at 8:00, 7 cm from the nipple. 2. Recommend 6 month follow-up Limited right breast ultrasound BI-RADS category 3, probably benign findings.
== END 2022-03-22 09:57 | disposition home or self-care (01) ==
PROVIDERS: PCP Nurse Practitioner Family; Visit Provider Internal Medicine Hematology & Oncology
DX: N63.11 Unspecified lump in the right breast, upper outer quadrant (principal); R92.8 Other abnormal and inconclusive findings on diagnostic imaging of breast
CPT/HCPCS: 76642; 77062; 77066; G0279

== ENCOUNTER 2022-04-11 13:36 | Outpatient (CLI) | payer BC, SELFPAY ==
[2022-04-11 13:48] LABS: Basophils Absolute Auto 0.1 K/mm3 (0.0-0.1); Basophils Percent Auto 1.2 % (0.2-1.2); Eosinophils Absolute Auto 0.1 K/mm3 (0-0.3); Eosinophils Percent Auto 1.2 % (0-4.4); Hematocrit 33.6 % (37.0-47.0); Hemoglobin 11.1 g/dL (12.0-15.0); Immature Granulocyte Absolute 0.02 K/mm3 (0.00-0.031); Immature Granulocyte Percent A 0.3 % (0-0.5); Lymphocytes Absolute Auto 1.08 K/mm3 (0.9-3.2); Lymphocytes Percent Auto 15.8 % (18.3-44.2); Mean Corpuscular Hemoglobin 31.5 pg (26-34); Mean Corpuscular Volume 95.5 fl (80-100); Mean Platelet Volume 9.9 fl (7.4-10.4); Monocytes Absolute Auto 0.7 K/mm3 (0.1-0.6); Monocytes Percent Auto 10.7 % (2.6-8.5); Neutrophils Absolute Auto 4.8 K/mm3 (1.3-6.7); Neutrophils Percent Auto 70.8 % (45.5-73.1); Platelet Count Result 247 k/mm3 (150-375); Red Blood Count 3.52 M/mm3 (4.2-5.4); White Blood Count 6.8 K/mm3 (4.5-10.0)
[2022-04-11 15:44] LABS: Alanine Aminotransferase 37 U/L (6-35); Albumin Level 4.2 g/dL (3.5-5.1); Alkaline Phosphatase 213 U/L (38-126); Anion Gap 12 mmol/L (8-16); Aspartate Amino Transferase 39 U/L (14-36); Bilirubin,Total 0.7 mg/dL (0.2-1.3); Blood Urea Nitrogen 38 mg/dL (7-17); Calcium 9.4 mg/dL (8.4-10.2); Carbon Dioxide 22 mmol/L (22-30); Chloride 103 mmol/L (98-107); Estimated Glomerular Filt Rate 26; Glucose 96 mg/dL (65-110); Potassium 4.1 mmol/L (3.4-5.0); Sodium 137 mmol/L (137-145)
[2022-04-11 16:24] LABS: Carcinoembryonic Antigen 14.5 ng/mL (0.0-3.0)
== END 2022-04-11 13:37 | disposition home or self-care (01) ==
LOC: ANHLAB 13:37
PROVIDERS: PCP Nurse Practitioner Family; Visit Provider Internal Medicine Hematology & Oncology
DX: C18.2 Malignant neoplasm of ascending colon (principal)
CPT/HCPCS: 36415; 80053; 82378; 85025

== ENCOUNTER 2022-04-21 02:30 | Day surgery (SDC) | payer BC, SELFPAY ==
[2022-04-13 11:23] VITALS: BMI 34.7
--- NOTE | 2022-04-21 09:18 | P.PNAN_ITS ---
Anes - Initial Pre Proc Eval Procedure: Operation Date: 04/21/22 12:30 Proposed Procedures p Screening Colonoscopy - Wei Rowley MD Date/Time: 04/21/22 09:18 Surgeon: Wei Rowley MD Pre Op Diagnosis: neoplasm screening, hx of colon cancer Patient Data Age: 67 Gender: F Height: 1.55 m Weight: 83.5 kg Allergies Allergy/AdvReac Type Severity Reaction Status Date / Time Macrolide Antibiotics Allergy Severe Swelling Verified 04/13/22 11:25 of Lip/Tongue/Throat morphine Allergy Severe Anaphylaxis Verified 04/13/22 11:25 erythromycin base Allergy Intermediate Hives Verified 04/13/22 11:25 hydrocodone AdvReac Mild Drowsy Verified 04/13/22 11:25 Home Medications Medication Instructions Recorded Confirmed Type albuterol sulfate 90 mcg/actuation 2 puff inhalation QID PRN 05/29/19 04/13/22 History aerosol inhaler (ProAir HFA) Shortness Of Breath apixaban 5 mg tablet (Eliquis) 5 mg PO BID 04/13/22 04/13/22 History calcium carbonate 300 mg (750 mg) 300 mg PO DAILY 04/13/22 04/13/22 History chewable tablet (Tums) vitamin B complex 1 cap PO DAILY 04/13/22 04/13/22 History Patient hx anesthesia problems: none Family hx anesthesia problems: none Results Review: All pre-operative results and documents have been reviewed as part of the pre- operative evaluation. 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 Informed Consent: The patient's anesthetic plan and its attendant risks and benefits were discussed with the patient/family/POA. Questions were solicited and answers provided to the satisfaction of the patient/family/POA.
[2022-04-21 11:08] VITALS: BP 161/85; PULSE 68; RESP 20; TEMP 36.3; O2SAT 100
[2022-04-21] MEDS: LACTATED RINGERS 1,000 ML 150 ML IV CONT (11:18)
--- NOTE | 2022-04-21 12:05 | PM.HPGS ---
History of Present Illness History of Present Illness Consent: Risks, benefits, and alternatives have been discussed and questions answered. Patient agrees to proceed with procedure. Chief complaint: neoplasm screening, hx of colon cancer Narrative: Linda Swain is a 67 year old female with colon cancer 2018 s/p rt hemicolectomy and chemorx, last colonoscopy 2019 Review of Systems Constitutional: Constitutional: Denies headache(s) and Denies weakness Eyes: Eyes: Denies blurry vision ENT: Reports Normal hearing present, Denies headache(s) and Denies neck pain Cardiovascular: Cardiovascular: Denies chest pain and Denies dyspnea Respiratory: Respiratory: Denies dyspnea Gastrointestinal: Gastrointestinal: Reports no additional gastrointestinal complaints Genitourinary: Genitourinary: Denies dysuria Musculoskeletal: Musculoskeletal: Denies neck pain Integumentary/Breasts: Skin/Breast: Denies dry skin Neurologic: Reports Normal hearing present, Denies headache(s) and Denies weakness Psychiatric: Psychiatric: Denies anxiety Endocrine: Endocrine: Denies change in body appearance Hematologic/Lymphatic: Hematologic/Lymphatic: Denies easy bleeding Allergic/Immunologic: Allergic/Immunologic: Denies urticaria PMFSH Past Medical History Medical History (Updated 04/21/22 @ 12:05 by Wei Rowley MD) Atrial fibrillation had cardio version 05/22 Bronchitis Colon cancer GERD (gastroesophageal reflux disease) H/O colon cancer, stage I History of colon cancer Hypertension Family History Family History Mother Family history of schizophrenia Hypertension Sibling Hypertension Father Patient's father is Social History Social History (Updated 05/03/20 @ 19:05 by Moira Álvarez PA-C) Smoking status: Never smoker Alcohol intake: former Substance use: never Substance use type: does not use Living arrangements: with family 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 patient): Female Spiritual care concerns: No Meds Home Medications and Allergies Home Medications Medication Instructions Recorded Confirmed Type albuterol sulfate 90 mcg/actuation 2 puff inhalation QID PRN 05/29/19 04/13/22 History aerosol inhaler (ProAir HFA) Shortness Of Breath apixaban 5 mg tablet (Eliquis) 5 mg PO BID 04/13/22 04/13/22 History calcium carbonate 300 mg (750 mg) 300 mg PO DAILY 04/13/22 04/13/22 History chewable tablet (Tums) vitamin B complex 1 cap PO DAILY 04/13/22 04/13/22 History Allergies Allergy/AdvReac Type Severity Reaction Status Date / Time Macrolide Antibiotics Allergy Severe Swelling Verified 04/13/22 11:25 of Lip/Tongue/Throat morphine Allergy Severe Anaphylaxis Verified 04/13/22 11:25 erythromycin base Allergy Intermediate Hives Verified 04/13/22 11:25 hydrocodone AdvReac Mild Drowsy Verified 04/13/22 11:25 Vital Signs Vital Signs - 24 hr 04/21/22 11:08 Temperature 97.4 F L Pulse Rate 68 Respiratory Rate 20 Blood Pressure 161/85 H Pulse Oximetry 100 Oxygen Delivery Room Air Exam Const: General: comfortable and no acute distress HENMT: Face/Nose/Sinus: Normal nares present Eyes: General: appearance normal, both eyes and all related structures Neck: Neck: no JVD Resp: Auscultation: clear to auscultation bilaterally Cardio: Rate: regular rate Rhythm: regular rhythm GI: Inspection: non-distended GI Palp: Yes Soft to palpation Skin: General skin exam: normal color Neuro: General: gait normal Speech: normal speech Extrem: General: normal to inspection Psych: Mental Status: mental status grossly normal Assessment and Plan Assessment and plan (1) History of colon cancer: Code(s): Z85.038 - Personal history of other malignant neoplasm of large intestine Status: Acute Assessment an
[2022-04-21 12:31] VITALS: BP 163/80; PULSE 56; RESP 25; O2SAT 96
[2022-04-21 12:41] VITALS: BP 172/85; PULSE 54; RESP 16; O2SAT 100
[2022-04-21 12:51] VITALS: BP 171/77; PULSE 56; RESP 22; O2SAT 100
== END 2022-04-21 12:57 | disposition home or self-care (01) ==
PROVIDERS: PCP Nurse Practitioner Family; Visit Provider Internal Medicine Gastroenterology
PROC: 0DJD8ZZ Inspection of Lower Intestinal Tract, Via Natural or Artificial Opening Endoscopic (ICD-10-PCS; CPT 45378; principal; 2022-04-21 12:30)
DX: Z12.11 Encounter for screening for malignant neoplasm of colon (principal); K63.5 Polyp of colon; K64.8 Other hemorrhoids; Z98.0 Intestinal bypass and anastomosis status; Z90.49 Acquired absence of other specified parts of digestive tract; Z85.038 Personal history of other malignant neoplasm of large intestine; I48.91 Unspecified atrial fibrillation; I10 Essential (primary) hypertension; K21.9 Gastro-esophageal reflux disease without esophagitis; Z79.51 Long term (current) use of inhaled steroids; E66.9 Obesity, unspecified; Z68.34 Body mass index [BMI] 34.0-34.9, adult; Z79.01 Long term (current) use of anticoagulants
CPT/HCPCS: 45385; 88305; J2704; J7120

== ENCOUNTER 2022-05-29 11:29 | Observation (INO) | payer BC, MEDICARE, SELFPAY ==
[2022-05-29] VITALS (31 sets, daily range): BP systolic 137–188; BP diastolic 53–96; PULSE 55–76; RESP 12–27; TEMP 36.6–37.1; O2SAT 90–100; BMI 35.2; BMI 35.4
--- NOTE | ~2022-05-29 | XR_ITS ---
EXAMINATION: XR chest 1V portable DATE: 05/29/2022 12:05 INDICATION: Stroke protocol with acute onset left vision loss TECHNIQUE: Upright AP view of the chest was obtained. COMPARISON: Chest radiograph dated 05/24/2018 FINDINGS: The lungs remain clear with no focal airspace opacities, pulmonary edema, pleural effusion or pneumot horax. Borderline heart size accounting for AP technique. Right internal jugular central venous port catheter with distal tip at the caudal superior vena cava. IMPRESSION: 1. Borderline heart size. No acute cardiopulmonary disease. Reviewed, dictated and finalized at location A. AL ARTS THERAPIST
--- NOTE | ~2022-05-29 | MR_ITS ---
MRA NECK History: Left vision changes Technique: 3D time of flight MRA of the neck is performed. Findings: Both vertebral arteries are patent and show antegrade flow and appear normal. Right and lef t common carotid arteries and the right and left cervical internal carotid arteries and external marcos tid arteries appear normal. The proximal right internal carotid artery demonstrates 0% stenosis relat ana to the normal distal artery lumen diameter. The proximal left internal carotid artery demonstrate s 0% stenosis relative to the normal distal artery lumen diameter. Impression: No occlusion or stenosis. Reviewed, dictated and finalized at location M. E MIDWIFE/CLINICAL INSTRUCTOR Impression: No occlusion or stenosis.
--- NOTE | ~2022-05-29 | MR_ITS ---
MRA HEAD History: Left eye vision changes Technique: 3D time of flight MRA of the head is performed. Findings: The right and left distal vertebral arteries and the basilar and posterior cerebral arterie s are normal. Right and left distal internal carotid arteries and anterior and middle cerebral arteri es are normal. There is no aneurysm, stenosis, or occlusion. Impression: No occlusion, stenosis, or aneurysm. Reviewed, dictated and finalized at location . EKEEPER Impression: No occlusion, stenosis, or aneurysm.
--- NOTE | ~2022-05-29 | MR_ITS ---
MRI of the brain Clinical History: Vision changes Technique: Axial and sagittal T1-weighted images were acquired. These were followed by axial T2-weigh stephanie, diffusion weighted, gradient, and FLAIR images. Findings: There is no acute infarct, internal hemorrhage, or mass lesion. There are numerous scattere d white matter lesions throughout the periventricular white matter bilaterally on FLAIR imaging. Ventricles and subarachnoid spaces are unremarkable. Orbits are unremarkable. There is mild bilateral maxillary, ethmoid, and frontal sinus disease. Mastoid air cells are clear. Major intracranial flow voids appear intact. Sagittal midline structures are intact. IMPRESSION: Numerous scattered focal white matter lesions throughout the periventricular white matter. Findings c ould reflect moderate chronic microvascular ischemic change. Correlate for any possibility of multipl e sclerosis/demyelinating disease. Sinus disease, as above. Reviewed, dictated and finalized at [facility]. TIONS ANALYST IMPRESSION: Numerous scattered focal white matter lesions throughout the periventricular wh ite matter. Findings could reflect moderate chronic microvascular ischemic tovar ge. Correlate for any possibility of multiple sclerosis/demyelinating disease. Sinus disease, as above.
--- NOTE | ~2022-05-29 | CT_ITS ---
EXAMINATION: CT brain wo con DATE: 05/29/2022 11:50 INDICATION: Sudden onset vision loss TECHNIQUE: Computed tomography (CT) of the head was performed without intravenous contrast. Sagittal and coronal reconstructions were performed. The mA was adjusted according to patient size. Iterative reconstruction technique was employed. The dose-length product was 605.33 mGy-cm. COMPARISON: head CT dated 07/26/2017 FINDINGS: No acute intracranial hemorrhage, acute infarction or abnormal extra axial fluid collection. There is mild scattered white matter hypoattenuation consistent with chronic small vessel ischemic disease. Ventricles are normal and symmetric. No mass/mass effect. Mucosal thickening and small amount of depe ndently layering mucus in the bilateral ethmoid and maxillary sinuses. Changes of bilateral intraocul ar lens replacement. The orbits and mastoid air cells are normal. IMPRESSION: 1. No acute intracranial process. 2. Mild scattered white matter hypoattenuation consistent with chronic small vessel ischemic disease. 3. Mucosal thickening and dependently layering mucus in the visualized paranasal sinuses suggesting a cute sinusitis. Reviewed, dictated and finalized at location A. SURG NURSE IMPRESSION: 1. No acute intracranial process. 2. Mild scattered white matter hypoattenuation consistent with chronic small ve ssel ischemic disease. 3. Mucosal thickening and dependently layering mucus in the visualized paranasa l sinuses suggesting acute sinusitis.
--- NOTE | 2022-05-29 11:41 | ECG_ITS ---
Measurements Intervals [place] Rate: 65 P: 64 NV: 262 QRS: -10 QRSD: 121 T: -11 QT: 438 QTc: 456 Interpretive Statements SINUS RHYTHM WITH FIRST DEGREE AV BLOCK POSSIBLE INFERIOR MYOCARDIAL INFARCTION, OF INDETERMINATE AGE ANTEROSEPTAL MYOCARDIAL INFARCTION, OF INDETERMINATE AGE ABNORMAL ECG COMPARED TO ECG 05/30/2019 08:55:59 SINUS RHYTHM NOW PRESENT FIRST DEGREE AV BLOCK NOW PRESENT Electronically Signed On 05-29-2022 16:59:54 [employer]AR[employer]I PRESS OPERATOR by Amor Yost M.D.
[2022-05-29 11:47] LABS: Glucose Point of Care 108 mg/dl (65-105)
--- NOTE | 2022-05-29 11:47 | ED.EYEPROB ---
HPI - Eye Problem General Chief complaint: Neuro Symptoms/Deficit Stated complaint: headache, left eye went black/blurry, htn Time Seen by Provider: 05/29/22 11:46 History of Present Illness HPI Narrative: Pt says her left eye went blurry about 1100. Pt has mild CARPENTER but denies any other stroke symptoms. Pt denies numbness or wekaness of any extremity or slurred speech. BP is a little elvated as well. Pt has history of lens replacement surgery due to cataracts. 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 Related Data Home Medications Medication Instructions Recorded Confirmed albuterol sulfate 90 mcg/actuation 2 puff inhalation QID PRN 05/29/19 05/29/22 aerosol inhaler (ProAir HFA) Shortness Of Breath apixaban 5 mg tablet (Eliquis) 5 mg PO BID 04/13/22 05/29/22 calcium carbonate 300 mg (750 mg) 300 mg PO DAILY 04/13/22 05/29/22 chewable tablet (Tums) vitamin B complex 1 cap PO DAILY 04/13/22 05/29/22 amlodipine 5 mg tablet 5 mg PO DAILY 05/29/22 05/29/22 Allergies Allergy/AdvReac Type Severity Reaction Status Date / Time Macrolide Antibiotics Allergy Severe Swelling Verified 04/13/22 11:25 of Lip/Tongue/Throat morphine Allergy Severe Anaphylaxis Verified 04/13/22 11:25 erythromycin base Allergy Intermediate Hives Verified 04/13/22 11:25 hydrocodone AdvReac Mild Drowsy Verified 04/13/22 11:25 Review of Systems Review of Systems: All systems reviewed & are unremarkable except as noted in HPI and below PMFSH Past Medical History Medical History (Updated 05/29/22 @ 13:08 by Randee Cool III DO) Atrial fibrillation had cardio version 05/22 Bronchitis Colon cancer GERD (gastroesophageal reflux disease) H/O colon cancer, stage I History of colon cancer Hypertension Family History Family History Mother Family history of schizophrenia Hypertension Sibling Hypertension Father Patient's father is Social History Social History (Updated 05/03/20 @ 19:05 by Moira Álvarez PA-C) Smoking status: Never smoker Alcohol intake: former Substance use: never Substance use type: does not use Lack of Transportation: No Lack of Food: Never True Current Housing: I Have Housing Concerned About Future Housing: No Difficulty Paying Gas/Electric Bills: No Difficulty Paying for Meds: No Currently Unemployed: No Education: Associate Degree Difficulty w/ Childcare or Family Care: No 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 patient): Female Spiritual care concerns: No Exam Const: General: healthy appearing Nutritional Appearance: well nourished Orientation/consciousness: patient oriented x3 Limitations: no limitations Eyes: Conjunctivae: conjunctivae normal Pupils: Equal, round and reactive pupils present EOM: EOMs intact bilaterally Neck: Neck: normal visual inspection and no lymphadenopathy Resp: Effort & Inspection: normal respiratory effort Auscultation: clear to auscultation bilaterally Cardio: Rate: regular rate Rhythm: regular rhythm GI: GI Palp: Yes Soft to palpation and No Tenderness to palpation present (GI) Auscultation: normal bowel sounds Skin: General skin exam: normal color Rashes: no rashes Neuro: General: patient oriented x3, moves all extremities, no meningeal signs and CN's II-XI intact bilaterally Speech: normal speech Extrem: General: normal to inspection and no clubbing, cyanosis or edema Psych: Mental Status: mental status grossly normal Affect: normal affect Attitude: cooperative Course Vital Signs Vital signs: Vital Signs Temperature 98.6 F 05/29/22 11:34 Pulse Rate 71 05/29/22 11:34 Respiratory Rate 14 05/29/22 11:34 Blood Pressure 180/88 H 05/29/22 11:34 Pulse Oximetry 97 05/29/22 11:34 Temperature 98.7 F 05/29/22 17:15 Pulse Rate 66 05/29/22 17:15 Respiratory R
[2022-05-29 12:02] LABS: Basophils Absolute Auto 0.1 K/mm3 (0.0-0.1); Basophils Percent Auto 1.4 % (0.2-1.2); Eosinophils Absolute Auto 0.1 K/mm3 (0-0.3); Eosinophils Percent Auto 2.2 % (0-4.4); Hematocrit 34.7 % (37.0-47.0); Hemoglobin 11.5 g/dL (12.0-15.0); Immature Granulocyte Absolute 0.01 K/mm3 (0.00-0.031); Immature Granulocyte Percent A 0.2 % (0-0.5); Lymphocytes Absolute Auto 1.17 K/mm3 (0.9-3.2); Lymphocytes Percent Auto 21.2 % (18.3-44.2); Mean Corpuscular HGB Conc 33.1 g/dl (32-36); Mean Corpuscular Hemoglobin 31.3 pg (26-34); Mean Corpuscular Volume 94.3 fl (80-100); Mean Platelet Volume 10.3 fl (7.4-10.4); Monocytes Absolute Auto 0.5 K/mm3 (0.1-0.6); Monocytes Percent Auto 9.8 % (2.6-8.5); Neutrophils Absolute Auto 3.6 K/mm3 (1.3-6.7); Neutrophils Percent Auto 65.2 % (45.5-73.1); Platelet Count Result 179 k/mm3 (150-375); Red Blood Count 3.68 M/mm3 (4.2-5.4); Red Cell Distribution Width 12.8 % (11.5-14.5); White Blood Count 5.5 K/mm3 (4.5-10.0)
[2022-05-29 12:11] LABS: INR 1.3; Partial Thromboplastin Time 27.6 SECONDS (22.3-36.8); Prothrombin Time 15.8 Seconds (11.1-14.7)
[2022-05-29 12:12] LABS: Alanine Aminotransferase 22 U/L (6-35); Albumin Level 4.3 g/dL (3.5-5.1); Alkaline Phosphatase 172 U/L (38-126); Anion Gap 5 mmol/L (8-16); Aspartate Amino Transferase 35 U/L (14-36); Bilirubin,Total 0.6 mg/dL (0.2-1.3); Blood Urea Nitrogen 28 mg/dL (7-17); Calcium 9.2 mg/dL (8.4-10.2); Carbon Dioxide 24 mmol/L (22-30); Chloride 106 mmol/L (98-107); Estimated CRCL calculation 45 ml/min; Estimated Glomerular Filt Rate 55; Glucose 109 mg/dL (65-110); Potassium 4.3 mmol/L (3.4-5.0); Sodium 135 mmol/L (137-145)
[2022-05-29 12:23] LABS: Troponin I < 0.012 ng/mL (0.000-0.034)
--- NOTE | 2022-05-29 12:28 | PC.NURSE ---
visual acuity test; Both eyes: 20/15 Left eye: 20/20 Right eye: 20/20
[2022-05-29 13:24] LABS: Influenza A QL RT-PCR Negative (Negative); Influenza B QL RT-PCR Negative (Negative); RSV RNA, RT-PCR Negative (Negative); SARS-CoV-2 RNA PCR Negative
--- NOTE | 2022-05-29 14:30 | PM.IMHP ---
H&P: HPI History of Present Illness Date/Time: 05/29/22 14:30 Chief Complaint: Vision changes in the left eye. Narrative: This is a very pleasant 67-year-old female with history of atrial fibrillation status post cardiac ablation on chronic anticoagulation, hypertension, chronic kidney disease, and history of colon cancer who presented to the emergency department from home for evaluation of vision changes in the left eye. She woke up with a dull left-sided headache this morning which is unusual for her. It seemed to improve a bit with Tylenol and she went about her morning. Not long prior to arrival she reports sudden left-sided vision change ?like a black veil was placed over my eye.? Within an hour so it was only affecting the lower medial aspect of her field of vision and her vision was back to normal after 1.5 hours. She has never had similar symptoms in the past but last night while walking down some stairs into the garage her vision seemed to be shaky which caused her to feel dizzy (vertigo, not lightheaded) and she fell down onto a case full of water bottles. The symptoms were fleeting and she was able to get up and go about her evening without issue. She denies current vertigo, facial droop, difficulty speaking and swallowing, focal weakness, and paresthesias. She states compliance with her anticoagulation has not missed a dose. On arrival to the ED her blood pressure was 180/88. Brain CT showed no acute intracranial process and noted mild scattered white matter hypoattenuation consistent with chronic small-vessel ischemic disease. There were also findings of possible sinusitis though she has no symptoms to suggest such. She is being admitted in this setting to rule out stroke and for Neurology consultation. Review of Systems Review of Systems: Twelve systems were reviewed. No fever, chills, or sweats. No cold or flu symptoms. No chest pain or palpitations. No orthopnea, PND, or lower extremity edema. In September she was started on amiodarone however her creatinine jumped and that was discontinued in February with improvement in her creatinine though not back to baseline. She has not had any urinary symptoms. Except as documented, all other systems were reviewed and are negative. [facility] Past Medical History Medical History (Updated 05/29/22 @ 21:09 by Edna Machuca PA-C) Chronic anticoagulation Chronic kidney disease, stage 3 Colon cancer (04/2018) Status post partial colectomy and chemotherapy. Gastroesophageal reflux disease Hypertension Paroxysmal atrial fibrillation Status post cardioversion and cardiac ablation x3, one which was complicated by a tear in the pericardium which was repaired. Peripheral neuropathy due to chemotherapy Surgical History Surgical History (Updated 05/29/22 @ 21:06 by Edna Machuca PA-C) History of 2 sections History of bilateral cataract extraction History of cardiac radiofrequency ablation X3 per Dr. Briones at [facility]. History of incision of pericardium Cardiac ablation complicated by pericardial tear, repaired by CT surgeon. History of ovarian cystectomy Benign dermoid cyst. History of partial colectomy (04/2018) For stage I colon cancer of the ascending colon. Family History Family History Mother Family history of schizophrenia Hypertension Sibling Hypertension Father Patient's father is Social History Social History (Updated 05/29/22 @ 21:07 by Edna Machuca PA-C) Social History: Surrogate medical decision maker: Mandy Paula, daughter. Code status: Full code. Smoking status: Never smoker Alcohol intake: former Substance use: never Substance use type: does not use Lack of Transportation: No Lack of Food: Never True Current Housing: I Have Housing Concerned About Future Housing: No Difficulty Paying Gas/Electric Bills: No Difficulty Payi
--- NOTE | 2022-05-29 17:15 | ADMGEN ---
This patient, Linda Swain, was admitted to [facility] Surg Room 316-01. Patient/family oriented to hospital policies and general routines including ID bracelet, bed and alarms, visiting hours, pain management, procedures, bathroom and other care routines, personal items, smoking policy, room service/diet, and visiting hours. Information on how to activate the Rapid Response Team has been discussed. Patient/Family are encouraged to report perceived risks to care and to ask questions if they do not understand what they are told or what they should do.
[2022-05-29] MEDS: ASPIRIN 81 MG CHEWABLE TABLET 324 MG PO (22:43)
[2022-05-30 05:49] VITALS: BP 143/61; PULSE 58; RESP 20; TEMP 36.3; O2SAT 96
[2022-05-30 07:59] LABS: Glucose Point of Care 96 mg/dl (65-105)
[2022-05-30 08:00] VITALS: PULSE 59; RESP 16; O2SAT 100
--- NOTE | 2022-05-30 10:28 | PM.IMPN ---
Progress Note: A&P Assessment and Plan (1) Visual changes: Code(s): H53.9 - Unspecified visual disturbance Status: Acute Assessment and Plan: Patient had sudden onset of left visual changes described as a veil being placed over her eyes. Her symptoms resolved completely within 1.5 hours. She had a brief episode of visual disturbances last evening as well though different, she reports that her vision seemed to be shaky which caused her to have brief vertigo. Given her risk factors she is being admitted for close monitoring overnight. Brain MRI and MRA of the head and neck carotid Doppler ultrasounds have been ordered. Neurology consulted. (2) Paroxysmal atrial fibrillation: Code(s): I48.0 - Paroxysmal atrial fibrillation Status: Acute Assessment and Plan: Status post cardiac ablation x3. She is in a sinus rhythm. (3) Chronic anticoagulation: Code(s): Z79.01 - watermaster (current) use of anticoagulants Status: Acute Assessment and Plan: Hold Eliquis for now due to suspicions for TIA/CVA, pending MRI. (4) Hypertension: Code(s): I10 - Essential (primary) hypertension Status: Acute Assessment and Plan: Blood pressures have been consistently elevated, in the 160s to 180 systolic though with concerns for CVA permissive hypertension will be allowed. Antihypertensives will be reviewed and resumed as appropriate. (5) Chronic kidney disease, stage 3: Code(s): N18.30 - Chronic kidney disease, stage 3 unspecified Status: Acute Assessment and Plan: Creatinine has improved over last several months since amiodarone was stopped. Stable on review of previous labs. Subjective Date/time seen: 05/30/22 10:28 No residual neurologic compromise Exam Narrative: General: Well-developed female appearing younger than her stated age sitting up in bed in no distress. Weight: 85 kg. BMI: 35.4. HEENT: Normocephalic, atraumatic. PERRL, EOMI. Sclera anicteric. Oral mucosa moist. Oropharynx clear. Neck: Supple. No obvious carotid bruits. Respiratory: Lungs are clear to auscultation bilaterally. Cardiovascular: Regular rate and rhythm with S1-S2. Gastrointestinal: Abdomen is soft, nontender, and nondistended with positive bowel sounds. Skin: Warm and dry. No rash or lesions on limited exam. Extremities: No cyanosis, clubbing, or edema. Radial and pedal pulses intact. Neurological: Alert and oriented x4. Cranial nerves 2-12 are grossly intact. Speech is clear. No facial asymmetry. No pronator drift. Normal irauci-mo-oewd and rapid alternating movements. No gross focal deficits to casual conversation. Psychiatric: Pleasant and cooperative with normal mood and affect. Judgment and insight intact. Objective Data Vital Signs Vital Signs: Vital Signs - 24 hr 05/29/22 11:34 05/29/22 12:09 05/29/22 11:58 Temperature 98.6 F Pulse Rate 71 68 64 Respiratory Rate 14 Blood Pressure 180/88 H Pulse Oximetry 97 100 Oxygen Delivery 05/29/22 12:00 05/29/22 12:01 05/29/22 12:15 Temperature Pulse Rate 65 63 61 Respiratory Rate 27 H 20 14 Blood Pressure 167/57 H Pulse Oximetry 100 98 96 Oxygen Delivery 05/29/22 12:16 05/29/22 12:30 05/29/22 12:45 Temperature Pulse Rate 60 67 66 Respiratory Rate 12 20 14 Blood Pressure 177/71 H 169/71 H Pulse Oximetry 100 99 99 Oxygen Delivery 05/29/22 12:46 05/29/22 13:00 05/29/22 13:19 Temperature Pulse Rate 60 68 62 Respiratory Rate 15 14 Blood Pressure Pulse Oximetry 100 97 97 Oxygen Delivery 05/29/22 13:30 05/29/22 13:31 05/29/22 13:45 Temperature Pulse Rate 60 63 61 Respiratory Rate 16 19 21 H Blood Pressure 176/82 H Pulse Oximetry 96 98 90 Oxygen Delivery 05/29/22 14:05 05/29/22 14:15 05/29/22 14:30 Temperature Pulse Rate 59 L 56 L 57 L Respiratory Rate 18 15 Blood Pressure Pulse Oximetry 98 97 97 Oxygen Delivery
[2022-05-30] MEDS: amLODIPine BESYLATE 5 MG TABLET PO (11:12)
[2022-05-30] MEDS: VITAMIN B COMPLEX CAPSULE 1 CAP PO (11:12)
[2022-05-30] MEDS: CALCIUM CARBONATE (TUMS) 500 MG (200 MG ELEMENTAL) BY MOUTH (11:13)
[2022-05-30] MEDS: ASPIRIN 81 MG ENTERIC TABLET PO (11:13)
[2022-05-30 11:38] LABS: Glucose Point of Care 158 mg/dl (65-105)
[2022-05-30 14:00] VITALS: BP 159/94; PULSE 59; RESP 16; TEMP 36.9; O2SAT 100
--- NOTE | 2022-05-30 15:12 | ECHO_ITS ---
Patient Info Name: Linda Swain Age: 67 years : 1955 Gender: Female Ht: 61 in Wt: 180 lbs BSA: 1.91 m2 HR: 68 bpm BP: 143 / 61 mmHg Heart Rhythm: Sinus Rhythm Exam Date: 05/30/2022 9:37 AM Exam Location: [facility] Patient Status: Outpatient Admit Date: 05/29/2022 Staff Ordering Physician: Edna Machuca PA-C Supply And Distribution Manager: Donnie Duarte RDCS, RT Attending Provider: Brenda Harding MD Referring Physician: Brigette JOHNSON; Exam Type: CA echo doppler color flow Study Info Indications G45.8 - Other transient cerebral ischemic attacks and related syndromes I48.1 - Persistent atrial fibrillation Complete two-dimensional, color flow and Doppler transthoracic echocardiogram is performed. Strain analysis performed. Summary 1. Complete two-dimensional, color flow and Doppler transthoracic echocardiogram is performed. 2. Left ventricular chamber dimension is normal. 3. Left ventricular systolic function is normal, estimated at 60-65%. 4. There is mildly increased left ventricular wall thickness. 5. The left ventricular diastolic function is grade II diastolic dysfunction. 6. Global longitudinal strain is normal at -20 %. 7. There is no aortic valve stenosis. 8. There is trace mitral valve regurgitation. 9. There is mild tricuspid valve regurgitation. 10. Mild pulmonary hypertension, estimated pulmonary arterial systolic pressure is 40 mmHg. Left Ventricle Left ventricular chamber dimension is normal. Left ventricular systolic function is normal, estimated at 60-65%. There is mildly increased left ventricular wall thickness. The left ventricular diastolic function is grade II diastolic dysfunction. Global longitudinal strain is normal at -20 %. Right Ventricle Right ventricular chamber dimension is normal. Right ventricular systolic function is normal. Left Atria Left atrial chamber dimension is mildly enlarged. Right Atria Right atrial chamber dimension is normal. Aortic Valve The aortic valve is trileaflet. There is no aortic valve stenosis. There is no aortic valve regurgitation. Pulmonic Valve The pulmonic valve is not well visualized. Mitral Valve The mitral valve has normal leaflets. There is trace mitral valve regurgitation. The mitral valve annulus is mildly calcified. Tricuspid Valve The tricuspid valve leaflets are normal. There is mild tricuspid valve regurgitation. Mild pulmonary hypertension, estimated pulmonary arterial systolic pressure is 40 mmHg. Pericardium/Pleural The pericardium appears normal. There is small pericardial effusion. Inferior Vena Cava Normal inferior vena cava with >50% collapse upon inspiration consistent with normal right atrial pressure, 5 mmHg. Aorta The aortic root size at the sinus of Valsalva is normal. There is mild aortic atherosclerosis. Left Ventricular Outflow Tract Name Value Normal LVOT 2D LVOT Diameter 2.0 cm LVOT Doppler LVOT Peak Gradient 3 mmHg LVOT Mean Gradient 2 mmHg LVOT VTI 22 cm
[2022-05-30 16:37] LABS: Glucose Point of Care 93 mg/dl (65-105)
[2022-05-30 21:34] VITALS: BP 147/67; PULSE 73; RESP 14; TEMP 36.9; O2SAT 96
[2022-05-31 05:55] VITALS: BP 114/54; PULSE 79; RESP 14; TEMP 37.3; O2SAT 94
[2022-05-31 08:00] LABS: Glucose Point of Care 87 mg/dl (65-105)
[2022-05-31] MEDS: amLODIPine BESYLATE 5 MG TABLET PO (09:21)
[2022-05-31] MEDS: ASPIRIN 81 MG ENTERIC TABLET PO (09:21)
[2022-05-31] MEDS: CALCIUM CARBONATE (TUMS) 500 MG (200 MG ELEMENTAL) BY MOUTH (09:21)
[2022-05-31] MEDS: VITAMIN B COMPLEX CAPSULE 1 CAP PO (09:21)
--- NOTE | 2022-05-31 11:30 | PM.DS ---
DS: Admitting Diagnosis Discharge Date May 31, 2022 Admitting Diagnosis TIA DS: Discharge Diagnosis Discharge Diagnosis (1) Visual changes: Code(s): H53.9 - Unspecified visual disturbance Status: Acute Assessment and Plan: Patient had sudden onset of left visual changes described as a veil being placed over her eyes. Her symptoms resolved completely within 1.5 hours. She had a brief episode of visual disturbances last evening as well though different, she reports that her vision seemed to be shaky which caused her to have brief vertigo. Given her risk factors she is being admitted for close monitoring overnight. Brain MRI and MRA of the head and neck carotid Doppler ultrasounds have been ordered. Neurology consulted. (2) Paroxysmal atrial fibrillation: Code(s): I48.0 - Paroxysmal atrial fibrillation Status: Acute Assessment and Plan: Status post cardiac ablation x3. She is in a sinus rhythm. (3) Chronic anticoagulation: Code(s): Z79.01 - jail (current) use of anticoagulants Status: Acute Assessment and Plan: Hold Eliquis for now due to suspicions for TIA/CVA, pending MRI. (4) Hypertension: Code(s): I10 - Essential (primary) hypertension Status: Acute Assessment and Plan: Blood pressures have been consistently elevated, in the 160s to 180 systolic though with concerns for CVA permissive hypertension will be allowed. Antihypertensives will be reviewed and resumed as appropriate. (5) Chronic kidney disease, stage 3: Code(s): N18.30 - Chronic kidney disease, stage 3 unspecified Status: Acute Assessment and Plan: Creatinine has improved over last several months since amiodarone was stopped. Stable on review of previous labs. DS: Summary Hospital Course Hospital Course: admitted for tia neuro symptoms have resolved mri noted - multiple areas ofold small infarct vs MS neuro consult - will need to fu with neuro continue oac adn asa on dc Time Spent with Patient Time attestation: Total time spent providing and/or coordinating discharge services: Exam Narrative: General: Well-developed female appearing younger than her stated age sitting up in bed in no distress. Weight: 85 kg. BMI: 35.4. HEENT: Normocephalic, atraumatic. PERRL, EOMI. Sclera anicteric. Oral mucosa moist. Oropharynx clear. Neck: Supple. No obvious carotid bruits. Respiratory: Lungs are clear to auscultation bilaterally. Cardiovascular: Regular rate and rhythm with S1-S2. Gastrointestinal: Abdomen is soft, nontender, and nondistended with positive bowel sounds. Skin: Warm and dry. No rash or lesions on limited exam. Extremities: No cyanosis, clubbing, or edema. Radial and pedal pulses intact. Neurological: Alert and oriented x4. Cranial nerves 2-12 are grossly intact. Speech is clear. No facial asymmetry. No pronator drift. Normal [id number] and rapid alternating movements. No gross focal deficits to casual conversation. Psychiatric: Pleasant and cooperative with normal mood and affect. Judgment and insight intact. DS: Data Data Completed and Pending Labs on day of discharge: Labs from last 24 hours 05/31/22 05/30/22 05/30/22 07:56 16:32 11:33 POC Capillary Glucose 87 93 158 H Discharge Plan Discharge Attending physician on discharge: Jacob Chung Consulting providers: Edmund Rubio Discharging Clinician: Jacob Chung Patient Disposition: Home, Self-Care Activity: no preference Diet: as tolerated Patient Instructions: Antibiotic Form, Apixaban (By mouth), Transient Ischemic Attack (DC) Stand Alone Forms: General Discharge Information Follow-up/Referrals: Edmund Rubio MD [Physician] - Discharge Medications: New aspirin 81 mg Tablet,Delayed Release (Dr/Ec) 81 mg PO QAM 30 Days Qty: 30 0RF Continued albuterol sulfate [ProAir HFA] 90 mcg/actuation Hfa Aerosol In
[2022-05-31 11:45] LABS: Glucose Point of Care 94 mg/dl (65-105)
[2022-05-31 14:00] VITALS: BP 158/82; PULSE 64; RESP 20; TEMP 36.5; O2SAT 98
--- NOTE | 2022-06-08 15:22 | P.CONNEU_ITS ---
Consult date: 06/08/22 HPI: Linda Swain is a 67 year old female not seen by [facility] Past Medical History Medical History (Updated 05/29/22 @ 21:09 by Edna Machuca PA-C) Chronic anticoagulation Chronic kidney disease, stage 3 Colon cancer (04/2018) Status post partial colectomy and chemotherapy. Gastroesophageal reflux disease Hypertension Paroxysmal atrial fibrillation Status post cardioversion and cardiac ablation x3, one which was complicated by a tear in the pericardium which was repaired. Peripheral neuropathy due to chemotherapy Surgical History Surgical History (Updated 05/29/22 @ 21:06 by Edna Machuca PA-C) History of 2 sections History of bilateral cataract extraction History of cardiac radiofrequency ablation X3 per Dr. rBiones at [facility]. History of incision of pericardium Cardiac ablation complicated by pericardial tear, repaired by CT surgeon. History of ovarian cystectomy Benign dermoid cyst. History of partial colectomy (04/2018) For stage I colon cancer of the ascending colon. Family History Family History Mother Family history of schizophrenia Hypertension Sibling Hypertension Father Patient's father is Social History Social History (Updated 05/29/22 @ 21:07 by Edna Machuca PA-C) Social History: Surrogate medical decision maker: Mandy Paula, daughter. Code status: Full code. Smoking status: Never smoker Alcohol intake: former Substance use: never Substance use type: does not use Lack of Transportation: No Lack of Food: Never True Current Housing: I Have Housing Concerned About Future Housing: No Difficulty Paying Gas/Electric Bills: No Difficulty Paying for Meds: No Currently Unemployed: No Education: Associate Degree Difficulty w/ Childcare or Family Care: No Additional living arrangements comments: Lives in [place]. 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 Spiritual care concerns: No Meds Home Medications and Allergies Home Medications Medication Instructions Recorded Confirmed Type albuterol sulfate 90 mcg/actuation 2 puff inhalation QID PRN 05/29/19 05/29/22 History aerosol inhaler (ProAir HFA) Shortness Of Breath apixaban 5 mg tablet (Eliquis) 5 mg PO BID 04/13/22 05/29/22 History calcium carbonate 300 mg (750 mg) 300 mg PO DAILY 04/13/22 05/29/22 History chewable tablet (Tums) vitamin B complex 1 cap PO DAILY 04/13/22 05/29/22 History amlodipine 5 mg tablet 5 mg PO DAILY 05/29/22 05/29/22 History aspirin 81 mg tablet,delayed 81 mg PO QAM 30 days #30 tabs 05/31/22 Rx release Allergies Allergy/AdvReac Type Severity Reaction Status Date / Time Macrolide Antibiotics Allergy Severe Swelling Verified 04/13/22 11:25 of Lip/Tongue/Throat morphine Allergy Severe Anaphylaxis Verified 04/13/22 11:25 erythromycin base Allergy Intermediate Hives Verified 04/13/22 11:25 hydrocodone AdvReac Mild Drowsy Verified 04/13/22 11:25 Results Labs 05/29/22 11:51 05/29/22 11:51
--- NOTE | 2022-06-08 15:24 | WPDNEURCNPN ---
Consult date: 06/08/22 HPI: Linda Swain is a 67 year old female not seen by [facility] Past Medical History Medical History (Updated 05/29/22 @ 21:09 by Edna Machuca PA-C) Chronic anticoagulation Chronic kidney disease, stage 3 Colon cancer (04/2018) Status post partial colectomy and chemotherapy. Gastroesophageal reflux disease Hypertension Paroxysmal atrial fibrillation Status post cardioversion and cardiac ablation x3, one which was complicated by a tear in the pericardium which was repaired. Peripheral neuropathy due to chemotherapy Surgical History Surgical History (Updated 05/29/22 @ 21:06 by Edna Machuca PA-C) History of 2 sections History of bilateral cataract extraction History of cardiac radiofrequency ablation X3 per Dr. Briones at [facility]. History of incision of pericardium Cardiac ablation complicated by pericardial tear, repaired by CT surgeon. History of ovarian cystectomy Benign dermoid cyst. History of partial colectomy (04/2018) For stage I colon cancer of the ascending colon. Family History Family History Mother Family history of schizophrenia Hypertension Sibling Hypertension Father Patient's father is Social History Social History (Updated 05/29/22 @ 21:07 by Edna Machuca PA-C) Social History: Surrogate medical decision maker: Mandy Paula, daughter. Code status: Full code. Smoking status: Never smoker Alcohol intake: former Substance use: never Substance use type: does not use Lack of Transportation: No Lack of Food: Never True Current Housing: I Have Housing Concerned About Future Housing: No Difficulty Paying Gas/Electric Bills: No Difficulty Paying for Meds: No Currently Unemployed: No Education: Associate Degree Difficulty w/ Childcare or Family Care: No Additional living arrangements comments: Lives in [place]. 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: No Meds Home Medications and Allergies Home Medications Medication Instructions Recorded Confirmed Type albuterol sulfate 90 mcg/actuation 2 puff inhalation QID PRN 05/29/19 05/29/22 History aerosol inhaler (ProAir HFA) Shortness Of Breath apixaban 5 mg tablet (Eliquis) 5 mg PO BID 04/13/22 05/29/22 History calcium carbonate 300 mg (750 mg) 300 mg PO DAILY 04/13/22 05/29/22 History chewable tablet (Tums) vitamin B complex 1 cap PO DAILY 04/13/22 05/29/22 History amlodipine 5 mg tablet 5 mg PO DAILY 05/29/22 05/29/22 History aspirin 81 mg tablet,delayed 81 mg PO QAM 30 days #30 tabs 05/31/22 Rx release Allergies Allergy/AdvReac Type Severity Reaction Status Date / Time Macrolide Antibiotics Allergy Severe Swelling Verified 04/13/22 11:25 of Lip/Tongue/Throat morphine Allergy Severe Anaphylaxis Verified 04/13/22 11:25 erythromycin base Allergy Intermediate Hives Verified 04/13/22 11:25 hydrocodone AdvReac Mild Drowsy Verified 04/13/22 11:25 Results Labs 05/29/22 11:51 05/29/22 11:51
== END 2022-05-31 15:30 | disposition home or self-care (01) ==
LOC: ANHED 15:36 → ANH3MEDSUR 17:41
PROVIDERS: Admitting Provider Family Medicine; Emergency Provider Emergency Medicine; PCP Nurse Practitioner Family; Visit Provider Chiropractor
DX: H53.9 Unspecified visual disturbance (principal); R51.9 Headache, unspecified; I12.9 Hypertensive chronic kidney disease with stage 1 through stage 4 chronic kidney disease, or unspecified chronic kidney disease; N18.30 Chronic kidney disease, stage 3 unspecified; I48.0 Paroxysmal atrial fibrillation; K21.9 Gastro-esophageal reflux disease without esophagitis; R90.82 White matter disease, unspecified; I07.1 Rheumatic tricuspid insufficiency; I27.20 Pulmonary hypertension, unspecified; R94.31 Abnormal electrocardiogram [ECG] [EKG]; Z20.822 Contact with and (suspected) exposure to COVID-19; Z98.890 Other specified postprocedural states; Z85.038 Personal history of other malignant neoplasm of large intestine; Z82.49 Family history of ischemic heart disease and other diseases of the circulatory system; Z79.52 Long term (current) use of systemic steroids; Z79.01 Long term (current) use of anticoagulants; Z79.899 Other long term (current) drug therapy
CPT/HCPCS: 36415; 70450; 70544; 70549; 70551; 71045; 80053; 82948; 84484; 85025; 85610; 85730; 87637; 93005; 93306; 97161; 99285; A9270; A9577; G0378

== ENCOUNTER 2022-07-12 14:33 | Outpatient (CLI) | payer MEDICARE, OTHER, SELFPAY ==
[2022-07-12 14:49] LABS: Basophils Absolute Auto 0.1 K/mm3 (0.0-0.1); Basophils Percent Auto 1.5 % (0.2-1.2); Eosinophils Absolute Auto 0.1 K/mm3 (0-0.3); Eosinophils Percent Auto 1.5 % (0-4.4); Hematocrit 33.1 % (37.0-47.0); Hemoglobin 11.1 g/dL (12.0-15.0); Immature Granulocyte Absolute 0.01 K/mm3 (0.00-0.031); Immature Granulocyte Percent A 0.2 % (0-0.5); Lymphocytes Absolute Auto 1.36 K/mm3 (0.9-3.2); Lymphocytes Percent Auto 24.8 % (18.3-44.2); Mean Corpuscular HGB Conc 33.5 g/dl (32-36); Mean Corpuscular Hemoglobin 30.7 pg (26-34); Mean Corpuscular Volume 91.7 fl (80-100); Mean Platelet Volume 9.4 fl (7.4-10.4); Monocytes Absolute Auto 0.6 K/mm3 (0.1-0.6); Monocytes Percent Auto 10.2 % (2.6-8.5); Neutrophils Absolute Auto 3.4 K/mm3 (1.3-6.7); Neutrophils Percent Auto 61.8 % (45.5-73.1); Platelet Count Result 248 k/mm3 (150-375); Red Blood Count 3.61 M/mm3 (4.2-5.4); Red Cell Distribution Width 13.3 % (11.5-14.5); White Blood Count 5.5 K/mm3 (4.5-10.0)
[2022-07-12 16:43] LABS: Alanine Aminotransferase 22 U/L (6-35); Albumin Level 3.8 g/dL (3.5-5.1); Alkaline Phosphatase 193 U/L (38-126); Anion Gap 6 mmol/L (8-16); Aspartate Amino Transferase 27 U/L (14-36); Bilirubin,Total 0.5 mg/dL (0.2-1.3); Blood Urea Nitrogen 26 mg/dL (7-17); Carbon Dioxide 24 mmol/L (22-30); Chloride 106 mmol/L (98-107); Estimated Glomerular Filt Rate 45; Glucose 96 mg/dL (65-110); Potassium 4.4 mmol/L (3.4-5.0); Sodium 136 mmol/L (137-145)
[2022-07-12 17:08] LABS: Carcinoembryonic Antigen 1.6 ng/mL (0.0-3.0)
== END 2022-07-12 14:34 | disposition home or self-care (01) ==
LOC: ANHLAB 14:36
PROVIDERS: PCP Nurse Practitioner Family; Visit Provider Internal Medicine Hematology & Oncology
DX: C18.2 Malignant neoplasm of ascending colon (principal)
CPT/HCPCS: 36415; 80053; 82378; 85025

== ENCOUNTER 2022-08-16 08:47 | Outpatient (CLI) | payer MEDICARE, OTHER, SELFPAY ==
--- NOTE | ~2022-08-16 | US_ITS ---
US breast RT limited DATE: 08/16/2022 09:25 INDICATION: Right upper outer breast lump; six-month follow-up of right breast 8:00 oval hypoechoic m ass TECHNIQUE: High-resolution ultrasound and color flow imaging targeted at 8:00 7 cm from nipple COMPARISON: 03/22/2022 diagnostic right mammogram images and limited right breast ultrasound examinat ion FINDINGS: At 8:00 7 cm from the nipple there is an irregular hypoechoic approximately 4 mm lesion wit h antiparallel orientation. There is no shadowing or internal vascularity. The irregular margins and antiparallel orientation are suspicious. Ultrasound-guided biopsy is recommended. IMPRESSION: Irregular antiparallel hypoechoic lesion of right breast at 8:00 7 cm from nipple Recommendation: Ultrasound-guided biopsy right breast 8:00 lesion 7 cm from nipple BI-RADS Category 4: Suspicious abnormality; biopsy should be considered Dr. 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 Reviewed, dictated and finalized at [facility]. Reviewed, dictated and finalized at [facility]. IMPRESSION: Irregular antiparallel hypoechoic lesion of right breast at 8:00 7 cm from nipple Recommendation: Ultrasound-guided biopsy right breast 8:00 lesion 7 cm from nip ple BI-RADS Category 4: Suspicious abnormality; biopsy should be considered Dr. 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 Or nurse was available the radha e but that she would relay the findings appropriately.
== END 2022-08-16 08:48 | disposition home or self-care (01) ==
PROVIDERS: PCP Nurse Practitioner Family; Visit Provider Internal Medicine Hematology & Oncology
DX: N63.11 Unspecified lump in the right breast, upper outer quadrant (principal); R92.8 Other abnormal and inconclusive findings on diagnostic imaging of breast
CPT/HCPCS: 76642

== ENCOUNTER 2022-08-22 12:57 | Outpatient (CLI) | payer MEDICARE, OTHER, SELFPAY ==
--- NOTE | ~2022-08-22 | MMUS_ITS ---
MM post biopsy invasive RT, US breast biopsy RT w image EXAMINATION: US GUIDED NEEDLE BIOPSY WITH VACUUM ASSISTANCE DATE: 08/22/2022 14:23 CDT INDICATION: Right breast mass seen on prior examination. Ultrasound-guided core biopsy is requested to evaluate for malignancy. TECHNIQUE AND FINDINGS: The risks and potential benefits of the procedure were discussed with the patient, and written inform ed consent was obtained. After sterile preparation of the breast, 1% lidocaine was utilized for loca l anesthesia. 1% lidocaine with epinephrine was used for deep anesthesia. A 10G vacuum-assisted biopsy gun needle was advanced through to the outer edge of the region of inter est from a superior lateral approach utilizing sonographic guidance. A total of three tissue core sa mples were obtained through the lesion. An Inrad tissue marker clip was then placed at the biopsy si te. Hemostasis was achieved. The patient tolerated procedure well and there was no evidence of immediate complication. The patien t was given verbal instructions partly is from the department. Right breast mammograms to document t issue marker clip placement. The tissue samples were submitted to surgical pathology for histologic a nalysis. IMPRESSION: 1. Successful ultrasound-guided vacuum-assisted biopsy of right breast mass with tissue marker place ment. Please refer to pathology report for histologic analysis. Reviewed, dictated and finalized at [facility]. IMPRESSION: 1. Successful ultrasound-guided vacuum-assisted biopsy of right breast mass wi th tissue marker placement. Please refer to pathology report for histologic gen lysis.
== END 2022-08-22 12:58 | disposition home or self-care (01) ==
PROVIDERS: PCP Nurse Practitioner Family; Visit Provider Internal Medicine Hematology & Oncology
DX: R92.8 Other abnormal and inconclusive findings on diagnostic imaging of breast (principal); D05.11 Intraductal carcinoma in situ of right breast
CPT/HCPCS: 19083; 88305; 88360; A4648

== ENCOUNTER 2023-03-05 13:18 | Outpatient (CLI) | payer MEDICARE, OTHER, SELFPAY ==
[2023-03-05 13:38] LABS: Basophils Absolute Auto 0.1 K/mm3 (0.0-0.1); Basophils Percent Auto 1.2 % (0.2-1.2); Eosinophils Absolute Auto 0.1 K/mm3 (0-0.3); Eosinophils Percent Auto 2.3 % (0-4.4); Hematocrit 34.2 % (37.0-47.0); Hemoglobin 11.4 g/dL (12.0-15.0); Immature Granulocyte Absolute 0.04 K/mm3 (0.00-0.031); Immature Granulocyte Percent A 0.7 % (0-0.5); Lymphocytes Absolute Auto 0.63 K/mm3 (0.9-3.2); Lymphocytes Percent Auto 11.2 % (18.3-44.2); Mean Corpuscular HGB Conc 33.3 g/dl (32-36); Mean Corpuscular Hemoglobin 30.2 pg (26-34); Mean Corpuscular Volume 90.5 fl (80-100); Mean Platelet Volume 9.2 fl (7.4-10.4); Monocytes Absolute Auto 0.8 K/mm3 (0.1-0.6); Monocytes Percent Auto 14.7 % (2.6-8.5); Neutrophils Percent Auto 69.9 % (45.5-73.1); Platelet Count Result 229 k/mm3 (150-375); Red Blood Count 3.78 M/mm3 (4.2-5.4); Red Cell Distribution Width 13.1 % (11.5-14.5); White Blood Count 5.7 K/mm3 (4.5-10.0)
[2023-03-05 16:42] LABS: Alanine Aminotransferase 20 U/L (6-35); Albumin Level 4.3 g/dL (3.5-5.1); Alkaline Phosphatase 134 U/L (38-126); Anion Gap 7 mmol/L (8-16); Aspartate Amino Transferase 25 U/L (14-36); Bilirubin,Total 0.5 mg/dL (0.2-1.3); Blood Urea Nitrogen 18 mg/dL (7-17); Calcium 9.5 mg/dL (8.4-10.2); Carbon Dioxide 24 mmol/L (22-30); Chloride 103 mmol/L (98-107); Estimated Glomerular Filt Rate 44; Glucose 102 mg/dL (65-110); Potassium 4.2 mmol/L (3.4-5.0); Sodium 134 mmol/L (137-145)
[2023-03-05 17:12] LABS: Carcinoembryonic Antigen 1.9 ng/mL (0.0-3.0)
[2023-03-08 05:23] LABS: CA 15-3 17 U/mL (<32)
== END 2023-03-05 13:19 | disposition home or self-care (01) ==
PROVIDERS: PCP Internal Medicine Hematology & Oncology; Visit Provider Internal Medicine Hematology & Oncology
DX: C50.911 Malignant neoplasm of unspecified site of right female breast (principal); Z17.0 Estrogen receptor positive status [ER+]; C18.2 Malignant neoplasm of ascending colon
CPT/HCPCS: 36415; 80053; 82378; 85025; 86300

== ENCOUNTER 2023-06-08 14:27 | Outpatient (CLI) | payer MEDICARE, OTHER, SELFPAY ==
[2023-06-08 14:47] LABS: Basophils Absolute Auto 0.1 K/mm3 (0.0-0.1); Basophils Percent Auto 1.5 % (0.2-1.2); Eosinophils Absolute Auto 0.2 K/mm3 (0-0.3); Eosinophils Percent Auto 3.2 % (0-4.4); Hematocrit 35.4 % (37.0-47.0); Hemoglobin 11.8 g/dL (12.0-15.0); Immature Granulocyte Absolute 0.02 K/mm3 (0.00-0.031); Immature Granulocyte Percent A 0.4 % (0-0.5); Lymphocytes Absolute Auto 0.74 K/mm3 (0.9-3.2); Lymphocytes Percent Auto 15.5 % (18.3-44.2); Mean Corpuscular HGB Conc 33.3 g/dl (32-36); Mean Corpuscular Hemoglobin 30.5 pg (26-34); Mean Corpuscular Volume 91.5 fl (80-100); Mean Platelet Volume 8.9 fl (7.4-10.4); Monocytes Absolute Auto 0.6 K/mm3 (0.1-0.6); Monocytes Percent Auto 12.4 % (2.6-8.5); Neutrophils Absolute Auto 3.2 K/mm3 (1.3-6.7); Platelet Count Result 216 k/mm3 (150-375); Red Blood Count 3.87 M/mm3 (4.2-5.4); White Blood Count 4.8 K/mm3 (4.5-10.0)
[2023-06-08 16:37] LABS: Alanine Aminotransferase 19 U/L (6-35); Albumin Level 4.1 g/dL (3.5-5.1); Alkaline Phosphatase 152 U/L (38-126); Anion Gap 8 mmol/L (8-16); Aspartate Amino Transferase 26 U/L (14-36); Bilirubin,Total 0.5 mg/dL (0.2-1.3); Blood Urea Nitrogen 20 mg/dL (7-17); Calcium 9.5 mg/dL (8.4-10.2); Carbon Dioxide 23 mmol/L (22-30); Chloride 105 mmol/L (98-107); Estimated Glomerular Filt Rate 55; Glucose 86 mg/dL (65-110); Potassium 4.5 mmol/L (3.4-5.0); Sodium 136 mmol/L (137-145)
[2023-06-08 17:09] LABS: Carcinoembryonic Antigen 1.5 ng/mL (0.0-3.0)
[2023-06-11 20:16] LABS: CA 15-3 17 U/mL (<32)
== END 2023-06-08 14:28 | disposition home or self-care (01) ==
LOC: ANHLAB 14:30
PROVIDERS: PCP Nurse Practitioner Family; Visit Provider Internal Medicine Hematology & Oncology
DX: C50.911 Malignant neoplasm of unspecified site of right female breast (principal); Z17.0 Estrogen receptor positive status [ER+]
CPT/HCPCS: 36415; 80053; 82378; 85025; 86300

== ENCOUNTER 2023-07-06 13:22 | Outpatient (CLI) | payer MEDICARE, OTHER, SELFPAY ==
[2023-07-06 14:03] LABS: INR 1.3; Partial Thromboplastin Time 30.4 SECONDS (22.3-36.8); Prothrombin Time 16.3 Seconds (11.1-14.7)
== END 2023-07-06 13:23 | disposition home or self-care (01) ==
LOC: ANHSURGERY 13:29
PROVIDERS: Anesthesiology; PCP Nurse Practitioner Family; Visit Provider Surgery
DX: N18.30 Chronic kidney disease, stage 3 unspecified (principal); Z01.818 Encounter for other preprocedural examination
CPT/HCPCS: 36415; 85610; 85730

== ENCOUNTER 2023-07-13 13:05 | Day surgery (SDC) | payer MEDICARE, OTHER, SELFPAY ==
[2023-07-03 08:17] VITALS: BMI 37.0
--- NOTE | 2023-07-03 08:35 | PC.NURSE ---
PRE-OP INSTRUCTIONS, PLEASE READ CAREFULLY Report to the Outpatient Waiting Room, entrance under the green pavilion located off [facility], at time _1 PM_ on date _07/13/23_. Planned Procedure Time: _3 PM_. Time changes happen often and if your time is changed the preop area will call you the afternoon before. - You and your visitor will be asked to self-screen and do not enter if you have any COVID symptoms. - A mask is optional within the hospital at this time. Patients may have clear liquids (water, carbonated beverages, clear teas, apple juice) until 3 hours prior to surgery (1200 NOON) with a maximum of 20 ounces. - No food from midnight until time of surgery Take the following medications with a SIP of water the morning of surgery: _NONE_ DO NOT STOP ANY OF YOUR OTHER PRESCRIPTION MEDICATIONS PRIOR TO SURGERY ?EXCEPT THE FOLLOWING Medications to discontinue per DR. COURTNEY - _ELIQUIS 3 DAYS PRIOR TO SURGERY (PER PT), Date to take last dose 07/09/23_ Medications to discontinue per ANESTHESIA - _VIT B COMPLEX E DAYS PRIOR TO SURGERY (PER PT), Date to take last dose 07/09/23_ Please no make-up, nail spanish, hairspray, perfume, deodorant, or body powder the day of surgery. No jewelry (including any body piercings) or valuables the day of surgery, leave them at home. Please take a shower or bath the night before, or the morning of, surgery with an antibacterial soap. Wear comfortable, loose fitting clothing. - Jewelry must be removed prior to entering the operating room. Rings and piercings that are not removed may be cut off. - The hospital will not accept responsibility for valuables. - Please leave all valuables, including medications, at home the day of surgery. If you are going home after surgery, a licensed hazardous materials tanker driver must drive you home. - NO public transportation without another adult if you receive anesthesia. - We recommend that an adult stay with you for 24 hours following discharge. - We also recommend that you do not drive, make important decision, drink alcoholic beverages, or take any drugs that were not prescribed by your health care provider for at least 24 hours after your discharge time. Follow any additional instructions given to you from your surgeon. If you or anyone in your household have experienced Covid symptoms in the past week, please notify your surgeon or the nurse liaison at the phone number below for possible testing. Telephone instructions given to _PATIENT_and asked if any additional questions and then verbalized understanding. Patient advised to call surgeon office or pre surgery nurse liaison [phone] if any additional questions.
--- NOTE | 2023-07-13 13:35 | WPDANESEPPF ---
Anes - Initial Pre Proc Eval Procedure: Operation Date: 07/13/23 15:00 Proposed Procedures p Removal Reinaldo Cath - Adeel Gomez MD Date/Time: 07/13/23 13:35 Surgeon: Adeel Gomez MD Pre Op Diagnosis: hx neopasm of ascending colon Patient Data Age: 68 Gender: F Height: 1.55 m Weight: 94.1 kg Allergies Allergy/AdvReac Type Severity Reaction Status Date / Time Macrolide Antibiotics Allergy Severe Swelling Verified 07/13/23 13:10 of Lip/Tongue/Throat morphine Allergy Severe Anaphylaxis Verified 07/13/23 13:10 erythromycin base Allergy Intermediate Hives Verified 07/13/23 13:10 hydrocodone AdvReac Mild Drowsy Verified 07/13/23 13:10 Home Medications Medication Instructions Recorded Confirmed Type apixaban 5 mg tablet (Eliquis) 5 mg PO BID 04/13/22 07/03/23 History calcium carbonate 300 mg (750 mg) 300 mg PO DAILY 04/13/22 07/03/23 History chewable tablet (Tums) vitamin B complex 1 cap PO DAILY 04/13/22 07/03/23 History anastrozole 1 mg tablet 1 mg PO DAILY 03/30/23 07/03/23 History diltiazem HCl 120 mg 120 mg PO HS 07/03/23 07/03/23 History capsule,extended release 24 hr, controlled (DILT-XR) Patient hx anesthesia problems: none Family hx anesthesia problems: none Results Review: All pre-operative results and documents have been reviewed as part of the pre-operative evaluation. [facility] Past Medical History Medical History Chronic anticoagulation Chronic kidney disease, stage 3 Colon cancer (04/2018) Status post partial colectomy and chemotherapy. Gastroesophageal reflux disease Hypertension Paroxysmal atrial fibrillation Status post cardioversion and cardiac ablation x3, one which was complicated by a tear in the pericardium which was repaired. Peripheral neuropathy due to chemotherapy Surgical History Surgical History History of 2 sections History of bilateral cataract extraction History of cardiac radiofrequency ablation X3 per Dr. Briones at [facility]. History of incision of pericardium Cardiac ablation complicated by pericardial tear, repaired by CT surgeon. History of ovarian cystectomy Benign dermoid cyst. History of partial colectomy (04/2018) For stage I colon cancer of the ascending colon. Family History Family History Mother Family history of schizophrenia Hypertension Sibling Hypertension Father Patient's father is Social History Social History Social History: Surrogate medical decision maker: Mandy Paula, daughter. Code status: Full code. Smoking status: Never smoker Second hand tobacco smoke exposure: No Alcohol intake: never Substance use: never Substance use type: does not use Lack of Transportation: No Lack of Food: Never True Current Housing: I Have Housing Concerned About Future Housing: No Difficulty Paying Gas/Electric Bills: No Difficulty Paying for Meds: No Currently Unemployed: No Education: Associate Degree Difficulty w/ Childcare or Family Care: No Living arrangements: alone Additional living arrangements comments: Lives in [place]. 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
[2023-07-13] MEDS: LACTATED RINGERS 1,000 ML 30 ML IV CONT (13:36)
[2023-07-13 13:45] VITALS: BP 163/103; PULSE 91; RESP 18; TEMP 37.2; O2SAT 99
--- NOTE | 2023-07-13 15:13 | PM.IMHP ---
H&P: HPI History of Present Illness Date/Time: 07/13/23 15:13 Chief Complaint: Hx colon CA Narrative: Pt had colon CA last treated with chemo tx 2018. She had right IJ port placed for chemo. She no longer needs the port. Presents now for removal. Review of Systems Review of Systems: The remainder of the review of systems to include constitutional, HEENT, cardiovascular, respiratory, GI, , integumentary, musculoskeletal, endocrine, immunologic, hematologic, psychiatric, and neurologic are all negative except for which is mentioned above in the HPI. [facility] Past Medical History Medical History Chronic anticoagulation Chronic kidney disease, stage 3 Colon cancer (04/2018) Status post partial colectomy and chemotherapy. Gastroesophageal reflux disease Hypertension Paroxysmal atrial fibrillation Status post cardioversion and cardiac ablation x3, one which was complicated by a tear in the pericardium which was repaired. Peripheral neuropathy due to chemotherapy Surgical History Surgical History History of 2 sections History of bilateral cataract extraction History of cardiac radiofrequency ablation X3 per Dr. Briones at [facility]. History of incision of pericardium Cardiac ablation complicated by pericardial tear, repaired by CT surgeon. History of ovarian cystectomy Benign dermoid cyst. History of partial colectomy (04/2018) For stage I colon cancer of the ascending colon. Family History Family History Mother Family history of schizophrenia Hypertension Sibling Hypertension Father Patient's father is Social History Social History Social History: Surrogate medical decision maker: Mandy Paula, daughter. Code status: Full code. Smoking status: Never smoker Second hand tobacco smoke exposure: No Alcohol intake: never Substance use: never Substance use type: does not use Lack of Transportation: No Lack of Food: Never True Current Housing: I Have Housing Concerned About Future Housing: No Difficulty Paying Gas/Electric Bills: No Difficulty Paying for Meds: No Currently Unemployed: No Education: Associate Degree Difficulty w/ Childcare or Family Care: No Living arrangements: alone Additional living arrangements comments: Lives in [place]. 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 patient): Female Spiritual care concerns: No Meds Home Medications and Allergies Home Medications Medication Instructions Recorded Confirmed Type apixaban 5 mg tablet (Eliquis) 5 mg PO BID 04/13/22 07/03/23 History calcium carbonate 300 mg (750 mg) 300 mg PO DAILY 04/13/22 07/03/23 History chewable tablet (Tums) vitamin B complex 1 cap PO DAILY 04/13/22 07/03/23 History anastrozole 1 mg tablet 1 mg PO DAILY 03/30/23 07/03/23 History diltiazem HCl 120 mg 120 mg PO HS 07/03/23 07/03/23 History capsule,extended release 24 hr, controlled (DILT-XR) Allergies Allergy/AdvReac Type Severity Reaction Status Date / Time Macrolide Antibiotics Allergy Severe Swelling Verified 07/13/23 13:10 of Lip/Tongue/Throat morphine Allergy Severe Anaphylaxis Verified 07/13/23 13:10 erythromycin base Allergy Intermediate Hives Verified 07/13/23 13:10 hydrocodone AdvReac Mild Drowsy Verified 07/13/23 13:10 Vital Signs Vital Signs - 24 hr 07/13/23 13:45 Temperature 37.2 C Pulse Rate 91 Respiratory Rate 18 Blood Pressure 163/103 H Pulse Oximetry 99 Oxygen Delivery Room Air Exam Const: General: comfortable and no acute distress HENMT: Ears: TM's normal bilaterally Face/Nose/Sinus
--- NOTE | 2023-07-13 15:16 | WPDHPUPDATE1 ---
History and Physical Update Update Date/Time: 07/13/23 15:16 History and Physical has been reviewed, including an updated exam of the patient. There are NO changes in the patient's condition. Risks, benefits, and alternatives have been discussed and questions answered. Patient agrees to proceed with procedure.
[2023-07-13] MEDS: ceFAZolin 2 GM/D5W 50 ML 2 GM/50 ML BAG IVPB (15:23)
[2023-07-13] MEDS: LIDO 1%/EPINEPHRINE 1:100,000 50 ML VIAL 20 ML INFILTRATE (15:34)
--- NOTE | 2023-07-13 15:56 | PM.OP ---
Procedure Note - Brief Procedure Note - Brief Date of procedure: 07/13/23 hx neopasm of ascending colon Post-op diagnosis: Same Procedure performed: Removal right internal jugular vein santy catheter Surgeon: Adeel Gomez MD Anesthesia: MAC Estimated blood loss (mL): 5 Drains: No Packing: No Pathology: None sent Complications: No immediate complications Condition: Stable Disposition: PACU
[2023-07-13 15:57] VITALS: BP 119/79; PULSE 118; RESP 12; O2SAT 96
[2023-07-13 16:20] VITALS: BP 129/88; PULSE 109; RESP 16; O2SAT 99
[2023-07-13 16:46] VITALS: BP 150/84; PULSE 95; RESP 16; O2SAT 95
--- NOTE | 2023-07-13 19:28 | W.PM.PROC2 ---
Procedure Note - Detailed Date of Procedure 07/13/23 Pre-op Diagnosis hx neopasm of ascending colon Post-op Diagnosis Same Procedure Performed Right internal jugular vein santy catheter removal. Surgeon Adeel Gomez MD Anesthesia MAC and Local Indications Patient is a 5-year-old female who had undergone treatment for colon cancer. Her last treatment for the colon cancer by Oncology was in 2019. She no longer needs a santy catheter presents now for removal of the santy catheter. Findings None significant Description of Procedure after informed consent was obtained patient brought to the operating room she was placed supine position and then IV sedation was administered by anesthesia. The right upper anterior neck and chest was then prepped and draped in usual sterile fashion. A time-out was then performed correctly identifying the patient as well as procedure to be performed verified she was given perioperative IV antibiotics. I then utilized 1% lidocaine mixed with 0.5% Marcaine injected around the old scar in the right upper anterior chest. I then made a transverse incision with a scalpel excise out the old scar in and elliptical fashion. This was done sharply with a scalpel. The scar tissue was discarded. I then proceeded to dissect down through the subcutaneous tissues electrocautery type encountered the port. I then dissected around this with electrocautery until identified the catheter attached to the port and then freed up the catheter circumferentially with electrocautery. With gentle traction on the catheter itself and removed from the right internal jugular vein. Pressure was then held on the area the right internal jugular vein for several minutes to achieve hemostasis. The port was then dissected size out of the subcutaneous tissues with electrocautery. The port and attached catheter was then discarded. I then irrigated out the incision sterile saline solution. Hemostasis was achieved electrocautery. The fibrous port pocket was then fulgurated utilized electrocautery as well. I then proceeded to close incision utilizing interrupted 3-0 Vicryl sutures in subcutaneous tissues. The skin edges were then approximated utilizing a running subcuticular 4-0 Monocryl suture. The incision was then cleaned the skin glue sterile dressing was applied. The patient tolerated the procedure well no complications. All sponges, needles, and instrument counts were correct at the end procedure. EBL was __5_cc. The patient was awakened and taken to recovery in stable and satisfactory condition. Implants None Estimated Blood Loss 5 Drains No Packing No Pathology None sent Complications No immediate complications Condition Stable Disposition PACU [facility] Billing Surgery - Charge Forward: Surgery Billing
== END 2023-07-13 16:55 | disposition home or self-care (01) ==
LOC: ANHSURGERY 17:01
PROVIDERS: PCP Nurse Practitioner Family; Visit Provider Surgery
PROC: (CPT 36589; principal; 2023-07-13 15:00)
DX: Z45.2 Encounter for adjustment and management of vascular access device (principal); Z85.038 Personal history of other malignant neoplasm of large intestine; I12.9 Hypertensive chronic kidney disease with stage 1 through stage 4 chronic kidney disease, or unspecified chronic kidney disease; N18.30 Chronic kidney disease, stage 3 unspecified; G62.0 Drug-induced polyneuropathy; I48.0 Paroxysmal atrial fibrillation; K21.9 Gastro-esophageal reflux disease without esophagitis; Z79.01 Long term (current) use of anticoagulants; Z79.811 Long term (current) use of aromatase inhibitors; Z90.49 Acquired absence of other specified parts of digestive tract; E66.9 Obesity, unspecified; Z68.39 Body mass index [BMI] 39.0-39.9, adult; Z92.21 Personal history of antineoplastic chemotherapy
CPT/HCPCS: 36590; J0690; J1100; J2405; J2704; J7120

== ENCOUNTER 2023-11-08 09:26 | Outpatient (CLI) | payer MEDICARE, OTHER, SELFPAY ==
[2023-11-08 09:44] LABS: Basophils Absolute Auto 0.1 K/mm3 (0.0-0.1); Basophils Percent Auto 1.5 % (0.2-1.2); Eosinophils Absolute Auto 0.2 K/mm3 (0-0.3); Eosinophils Percent Auto 3.4 % (0-4.4); Hematocrit 35.7 % (37.0-47.0); Hemoglobin 12.2 g/dL (12.0-15.0); Immature Granulocyte Absolute 0.01 K/mm3 (0.00-0.031); Immature Granulocyte Percent A 0.2 % (0-0.5); Lymphocytes Percent Auto 17.2 % (18.3-44.2); Mean Corpuscular HGB Conc 34.2 g/dl (32-36); Mean Corpuscular Hemoglobin 30.7 pg (26-34); Mean Corpuscular Volume 89.9 fl (80-100); Mean Platelet Volume 9.4 fl (7.4-10.4); Monocytes Absolute Auto 0.6 K/mm3 (0.1-0.6); Monocytes Percent Auto 13.6 % (2.6-8.5); Neutrophils Percent Auto 64.1 % (45.5-73.1); Platelet Count Result 191 k/mm3 (150-375); Red Blood Count 3.97 M/mm3 (4.2-5.4); Red Cell Distribution Width 12.8 % (11.5-14.5); White Blood Count 4.6 K/mm3 (4.5-10.0)
[2023-11-08 11:49] LABS: Alanine Aminotransferase 15 U/L (6-35); Albumin Level 4.2 g/dL (3.5-5.1); Alkaline Phosphatase 136 U/L (38-126); Anion Gap 6 mmol/L (4-12); Aspartate Amino Transferase 25 U/L (14-36); Bilirubin,Total 0.6 mg/dL (0.2-1.3); Blood Urea Nitrogen 22 mg/dL (7-17); Calcium 10.3 mg/dL (8.4-10.2); Carbon Dioxide 22 mmol/L (22-30); Chloride 108 mmol/L (98-107); Estimated Glomerular Filt Rate 55; Glucose 106 mg/dL (65-110); Potassium 4.1 mmol/L (3.4-5.0); Sodium 136 mmol/L (137-145)
[2023-11-08 12:21] LABS: Carcinoembryonic Antigen 0.8 ng/mL (0.0-3.0)
[2023-11-09 12:24] LABS: CA 15-3 13 U/mL (<32)
== END 2023-11-08 09:27 | disposition home or self-care (01) ==
LOC: ANHLAB 09:28
PROVIDERS: PCP Nurse Practitioner Family; Visit Provider Internal Medicine Hematology & Oncology
DX: C50.911 Malignant neoplasm of unspecified site of right female breast (principal); Z17.0 Estrogen receptor positive status [ER+]; C18.2 Malignant neoplasm of ascending colon
CPT/HCPCS: 36415; 80053; 82378; 85025; 86300

== ENCOUNTER 2023-12-16 21:32 | Emergency (ER) | payer MEDICARE, OTHER, SELFPAY ==
--- NOTE | ~2023-12-16 | XR_ITS ---
Clinical Indication: Cough PA and lateral views of the chest: Comparison: 05/29/2022 Findings: The lungs are clear, without evidence of focal consolidation or pleural effusion. Cardiome diastinal silhouette is within normal limits. Bones and soft tissues are unremarkable. Impression: Normal chest. Reviewed, dictated and finalized at location . Impression: Normal chest.
[2023-12-16 21:41] VITALS: BP 158/113; PULSE 133; RESP 20; TEMP 36.1; O2SAT 94
--- NOTE | 2023-12-16 21:41 | ECG_ITS ---
Test Date: 2023-12-16 22:11:08 Measurements Intervals [place] Rate: 115 P: 0 KS: 0 QRS: 47 QRSD: 96 T: -33 QT: 310 QTc: 429 Interpretive Statements ATRIAL FIBRILLATION WITH RAPID VENTRICULAR RESPONSE LOW QRS VOLTAGE IN PRECORDIAL LEADS INCOMPLETE RIGHT BUNDLE BRANCH BLOCK CANNOT R/O SEPTAL INFARCT, AGE INDETERMINATE BORDERLINE ST-T WAVE ABNORMALITY- ANT/INF LEADS BASELINE ARTIFACT- I, III ABNORMAL ECG No previous ECG available for comparison Electronically Signed On 12-17-2023 08:28:34 CDT by Jacob Sanchez D.O.
[2023-12-16 22:03] LABS: Basophils Absolute Auto 0.1 K/mm3 (0.0-0.1); Basophils Percent Auto 2.1 % (0.2-1.2); Eosinophils Absolute Auto 0.5 K/mm3 (0-0.3); Eosinophils Percent Auto 8.7 % (0-4.4); Hematocrit 36.7 % (37.0-47.0); Hemoglobin 12.4 g/dL (12.0-15.0); Immature Granulocyte Absolute 0.02 K/mm3 (0.00-0.031); Immature Granulocyte Percent A 0.3 % (0-0.5); Lymphocytes Absolute Auto 1.01 K/mm3 (0.9-3.2); Lymphocytes Percent Auto 16.7 % (18.3-44.2); Mean Corpuscular HGB Conc 33.8 g/dl (32-36); Mean Corpuscular Hemoglobin 31.3 pg (26-34); Mean Corpuscular Volume 92.7 fl (80-100); Mean Platelet Volume 9.5 fl (7.4-10.4); Monocytes Absolute Auto 0.6 K/mm3 (0.1-0.6); Monocytes Percent Auto 10.4 % (2.6-8.5); Neutrophils Absolute Auto 3.7 K/mm3 (1.3-6.7); Neutrophils Percent Auto 61.8 % (45.5-73.1); Platelet Count Result 211 k/mm3 (150-375); Red Blood Count 3.96 M/mm3 (4.2-5.4); Red Cell Distribution Width 13.8 % (11.5-14.5); White Blood Count 6.1 K/mm3 (4.5-10.0)
[2023-12-16 22:14] LABS: Alanine Aminotransferase 17 U/L (6-35); Albumin Level 4.4 g/dL (3.5-5.1); Alkaline Phosphatase 144 U/L (38-126); Anion Gap 11 mmol/L (4-12); Aspartate Amino Transferase 27 U/L (14-36); Bilirubin,Total 0.5 mg/dL (0.2-1.3); Blood Urea Nitrogen 21 mg/dL (7-17); Calcium 10.1 mg/dL (8.4-10.2); Carbon Dioxide 18 mmol/L (22-30); Chloride 105 mmol/L (98-107); Estimated CRCL calculation 39 ml/min; Estimated Glomerular Filt Rate 44; Glucose 115 mg/dL (65-110); Potassium 4.3 mmol/L (3.4-5.0); Sodium 134 mmol/L (137-145)
[2023-12-16 23:01] VITALS: BP 158/101; PULSE 115; RESP 14; O2SAT 92; O2SAT 94
[2023-12-16 23:05] VITALS: BP 158/101; PULSE 117; RESP 18; O2SAT 94
[2023-12-16 23:31] VITALS: BP 133/97; PULSE 102; RESP 20; O2SAT 91
[2023-12-17 00:01] VITALS: BP 128/80; PULSE 96; RESP 19; O2SAT 91
[2023-12-17] MEDS: LEVALBUTEROL NEB 1.25 MG/3 ML INHALATION (01:01)
[2023-12-17 01:02] VITALS: PULSE 103; RESP 15
--- NOTE | 2023-12-17 01:08 | ED.GENADULT ---
HPI - General Adult General Chief complaint: Shortness of Breath/Dyspnea Stated complaint: Cough, SOB Time Seen by Provider: 12/17/23 00:30 History of Present Illness HPI narrative: 68-year-old female presents to the emergency department for evaluation for dizziness and chest tightness. Patient states she has had cough for the last few weeks and also also had some increased shortness of breath and intermittent palpitations. Patient does have a diagnosis of AFib and states she has had some rapid heart rate at home. Upon arrival emergency department patient denies any current chest pain or fevers. Related Data Home Medications Medication Instructions Recorded Confirmed apixaban 5 mg tablet (Eliquis) 5 mg PO BID 04/13/22 11/22/23 calcium carbonate (Tums) 300 mg PO DAILY 04/13/22 11/22/23 vitamin B complex 1 cap PO DAILY 04/13/22 11/22/23 anastrozole 1 mg tablet 1 mg PO DAILY 03/30/23 11/22/23 diltiazem HCl 120 mg 120 mg PO HS 07/03/23 11/22/23 capsule,extended release 24 hr, controlled (DILT-XR) cholecalciferol (vitamin D3) 50 50 mcg PO DAILY 11/19/23 11/19/23 mcg (2,000 unit) capsule Allergies Allergy/AdvReac Type Severity Reaction Status Date / Time Macrolide Antibiotics Allergy Severe Swelling Verified 12/16/23 21:45 of Lip/Tongue/Throat morphine Allergy Severe Anaphylaxis Verified 12/16/23 21:45 erythromycin base Allergy Intermediate Hives Verified 12/16/23 21:45 hydrocodone AdvReac Mild Drowsy Verified 12/16/23 21:45 Review of Systems Review of Systems: All systems reviewed & are unremarkable except as noted in HPI and below PMFSH Past Medical History Medical History Chronic anticoagulation Chronic kidney disease, stage 3 Colon cancer (04/2018) Status post partial colectomy and chemotherapy. Gastroesophageal reflux disease Hypertension Paroxysmal atrial fibrillation Status post cardioversion and cardiac ablation x3, one which was complicated by a tear in the pericardium which was repaired. Peripheral neuropathy due to chemotherapy Surgical History Surgical History History of 2 sections History of bilateral cataract extraction History of cardiac radiofrequency ablation X3 per Dr. Briones at [facility]. History of incision of pericardium Cardiac ablation complicated by pericardial tear, repaired by CT surgeon. History of ovarian cystectomy Benign dermoid cyst. History of partial colectomy (04/2018) For stage I colon cancer of the ascending colon. Family History Family History Mother Family history of schizophrenia Hypertension Sibling Hypertension Father Patient's father is Social History Social History Social History: Surrogate medical decision maker: Mandy Paula, daughter. Code status: Full code. Smoking status: Never smoker Second hand tobacco smoke exposure: No Alcohol intake: never Substance use: never Substance use type: does not use Do You Feel Safe in your Home?: Yes Lack of Transportation: No Lack of Food: Never True Current Housing: I Have Housing Concerned About Future Housing: No Difficulty Paying Gas/Electric Bills: No Difficulty Paying for Meds: No Currently Unemployed: No Education: Associate Degree Difficulty w/ Childcare or Family Care: No Living arrangements: alone Additional living arrangements comments: Lives in [place]. 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 patient): Female Spiritual care concerns: No Course Course Emergency Course: 68-year-old female present to the emergency department for evaluation for not feeling
[2023-12-17] MEDS: SODIUM CHLORIDE 0.9% IV 500 ML 999 ML IV CONT (01:18)
[2023-12-17 02:35] VITALS: O2SAT 91
[2023-12-17] MEDS: AZITHROMYCIN 250 MG TABLET 500 MG PO (02:51)
[2023-12-17] MEDS: predniSONE 20 MG TABLET 40 MG PO (02:51)
[2023-12-17] MEDS: AMOXICILLIN/CLAVULANATE K 875-125 MG TAB 1 TABLET PO (02:51)
--- NOTE | 2023-12-17 03:07 | PC.NURSE ---
this rn gave patient spacer prior to discharge for patient use.
== END 2023-12-17 03:07 | disposition home or self-care (01) ==
PROVIDERS: Emergency Provider Emergency Medicine
DX: J18.9 Pneumonia, unspecified organism (principal); I48.0 Paroxysmal atrial fibrillation; N18.30 Chronic kidney disease, stage 3 unspecified; I12.9 Hypertensive chronic kidney disease with stage 1 through stage 4 chronic kidney disease, or unspecified chronic kidney disease; K21.9 Gastro-esophageal reflux disease without esophagitis; Z85.038 Personal history of other malignant neoplasm of large intestine; Z92.21 Personal history of antineoplastic chemotherapy; Z98.42 Cataract extraction status, left eye; Z98.41 Cataract extraction status, right eye; Z90.49 Acquired absence of other specified parts of digestive tract; Z79.01 Long term (current) use of anticoagulants; Z79.899 Other long term (current) drug therapy; I45.10 Unspecified right bundle-branch block; R94.31 Abnormal electrocardiogram [ECG] [EKG]
CPT/HCPCS: 36415; 71046; 80053; 85025; 93005; 94640; 96360; 99284; A9270; J7040; J7512

== ENCOUNTER 2024-03-01 10:27 | Emergency (ER) | payer MEDICARE, OTHER, SELFPAY ==
[2024-03-01] VITALS (8 sets, daily range): BP systolic 160–178; BP diastolic 110–146; PULSE 79–141; RESP 18–20; TEMP 36.6; O2SAT 97–100
--- NOTE | ~2024-03-01 | XR_ITS ---
EXAMINATION: XR chest 1V portable 03/01/2024 10:53 INDICATION: Cardiac arrhythmia PROCEDURE: AP portable chest COMPARISON: 12/16/2023 FINDINGS: The lungs are clear. The cardiomediastinal silhouette is within normal limits. There are no pleural effusions. There is no pneumothorax suspected. IMPRESSION: 1: NO ACUTE CARDIOPULMONARY DISEASE. Reviewed, dictated and finalized at location A.
--- NOTE | 2024-03-01 10:32 | ECG_ITS ---
Test Date: 2024-03-01 10:35:39 Measurements Intervals [place] Rate: 132 P: 0 WI: 0 QRS: 147 QRSD: 111 T: 219 QT: 289 QTc: 429 Interpretive Statements ATRIAL FIBRILLATION WITH RAPID VENTRICULAR RESPONSE LIMB LEAD REVERSAL INCOMPLETE RIGHT BUNDLE BRANCH BLOCK CONSIDER ANTERIOR INFARCT, AGE INDETERMINATE BORDERLINE ST-T WAVE ABNORMALITY- ANTEROLAT/INF LEADS BASELINE ARTIFACT- I, II, III, AVR, AVL, AVF, V2-V4 ABNORMAL ECG Compared to ECG 12/16/2023 22:11:08 HEART RATE HAS INCREASED Electronically Signed On 03-01-2024 16:57:38 CDT by Jacob Sanchez D.O.
--- NOTE | 2024-03-01 10:32 | ED.ARRPALP ---
HPI - Arrhythmia/Palpitations General Chief Complaint: Arrhythmia/Palpitations Stated Complaint: weakness, afib Time Seen by Provider: 03/01/24 10:31 Source: patient History of Present Illness HPI narrative: 68 YEARS OLD WHITE FEMALE CAME TO THE ED BY AMBULANCE COMPLAINING OF DIZZINESS AND FEELING LIKE GOING TO BLACK OUT PRIOR TO ARRIVAL HISTORY OF ATRIAL FIBRILLATION, USED TO BE ON 120 MG OF CARDIZEM WHICH STOPPED 4 DAYS AGO BECAUSE OF LOW BLOOD PRESSURE. SHE DENIES ANY FEVER, CHILLS, NAUSEA, VOMITING, CHEST PAIN, SHORTNESS OF BREATH, HEADACHE OR FOCAL NEURO DEFICIT. PATIENT CURRENTLY ON ELIQUIS Related Data Home Medications Medication Instructions Recorded Confirmed apixaban 5 mg tablet (Eliquis) 5 mg PO BID 04/13/22 11/22/23 calcium carbonate (Tums) 300 mg PO DAILY 04/13/22 11/22/23 vitamin B complex 1 cap PO DAILY 04/13/22 11/22/23 anastrozole 1 mg tablet 1 mg PO DAILY 03/30/23 11/22/23 diltiazem HCl 120 mg 120 mg PO HS 07/03/23 11/22/23 capsule,extended release 24 hr, controlled (DILT-XR) cholecalciferol (vitamin D3) 50 50 mcg PO DAILY 11/19/23 11/19/23 mcg (2,000 unit) capsule Allergies Allergy/AdvReac Type Severity Reaction Status Date / Time Macrolide Antibiotics Allergy Severe Swelling Verified 03/01/24 10:39 of Lip/Tongue/Throat morphine Allergy Severe Anaphylaxis Verified 03/01/24 10:39 erythromycin base Allergy Intermediate Hives Verified 03/01/24 10:39 hydrocodone AdvReac Mild Drowsy Verified 03/01/24 10:39 Review of Systems Review of Systems: All systems reviewed & are unremarkable except as noted in HPI and below PMFSH Past Medical History Medical History Chronic anticoagulation Chronic kidney disease, stage 3 Colon cancer (04/2018) Status post partial colectomy and chemotherapy. Gastroesophageal reflux disease Hypertension Paroxysmal atrial fibrillation Status post cardioversion and cardiac ablation x3, one which was complicated by a tear in the pericardium which was repaired. Peripheral neuropathy due to chemotherapy Surgical History Surgical History History of 2 sections History of bilateral cataract extraction History of cardiac radiofrequency ablation X3 per Dr. Briones at [facility]. History of incision of pericardium Cardiac ablation complicated by pericardial tear, repaired by CT surgeon. History of ovarian cystectomy Benign dermoid cyst. History of partial colectomy (04/2018) For stage I colon cancer of the ascending colon. Family History Family History Mother Family history of schizophrenia Hypertension Sibling Hypertension Father Patient's father is Social History Social History Social History: Surrogate medical decision maker: Mandy Paula, daughter. Code status: Full code. Smoking status: Never smoker Second hand tobacco smoke exposure: No Alcohol intake: never Substance use: never Substance use type: does not use Do You Feel Safe in your Home?: Yes Lack of Transportation: No Lack of Food: Never True Current Housing: I Have Housing Concerned About Future Housing: No Difficulty Paying Gas/Electric Bills: No Difficulty Paying for Meds: No Currently Unemployed: No Education: Associate Degree Difficulty w/ Childcare or Family Care: No Living arrangements: alone Additional living arrangements comments: Lives in [place]. 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
[2024-03-01] MEDS: dilTIAZem 100 MG/100 ML 100 MG/100 ML BAG IV CONT (10:46)
[2024-03-01] MEDS: dilTIAZem HCl INJ 25 MG/5 ML VIAL 10 MG IV PUSH (10:48)
[2024-03-01] MEDS: METOPROLOL TARTRATE 25 MG TABLET PO (11:46)
[2024-03-01 12:06] LABS: Basophils Absolute Auto 0.1 K/mm3 (0.0-0.1); Basophils Percent Auto 1.2 % (0.2-1.2); Eosinophils Absolute Auto 0.1 K/mm3 (0-0.3); Eosinophils Percent Auto 2.7 % (0-4.4); Hematocrit 37.1 % (37.0-47.0); Immature Granulocyte Absolute 0.03 K/mm3 (0.00-0.031); Immature Granulocyte Percent A 0.6 % (0-0.5); Lymphocytes Absolute Auto 0.63 K/mm3 (0.9-3.2); Lymphocytes Percent Auto 12.9 % (18.3-44.2); Mean Corpuscular Hemoglobin 31.1 pg (26-34); Mean Corpuscular Volume 88.8 fl (80-100); Mean Platelet Volume 9.5 fl (7.4-10.4); Monocytes Absolute Auto 0.6 K/mm3 (0.1-0.6); Monocytes Percent Auto 11.5 % (2.6-8.5); Neutrophils Absolute Auto 3.5 K/mm3 (1.3-6.7); Neutrophils Percent Auto 71.1 % (45.5-73.1); Platelet Count Result 207 k/mm3 (150-375); Red Blood Count 4.18 M/mm3 (4.2-5.4); Red Cell Distribution Width 12.5 % (11.5-14.5); White Blood Count 4.9 K/mm3 (4.5-10.0)
[2024-03-01 12:17] LABS: Add Urine Microscopic? NO; Appearance Urine Clear (Clear); Bilirubin Urine Negative (Negative); Blood Urine Negative (Negative); Color Urine Yellow (Yellow); Glucose Urine UA Negative (Negative); Ketones Urine Negative (Negative); Leukocyte Esterase Ur Negative LEU/UL (Negative); Nitrate Urine Negative (Negative); Protein Urine Negative (Negative); Specific Grav Ur 1.009 (1.001-1.035); Urobilinogen Urine 0.2 mg/dL (<2.0)
[2024-03-01 12:19] LABS: INR 1.5; Partial Thromboplastin Time 30.5 Seconds (22.3-36.8); Prothrombin Time 18.5 Seconds (11.1-14.7)
[2024-03-01 12:25] LABS: Alanine Aminotransferase 19 U/L (6-35); Albumin Level 4.3 g/dL (3.5-5.1); Alkaline Phosphatase 121 U/L (38-126); Anion Gap 7 mmol/L (4-12); Aspartate Amino Transferase 34 U/L (14-36); Bilirubin,Total 0.5 mg/dL (0.2-1.3); Blood Urea Nitrogen 23 mg/dL (7-17); Calcium 10.2 mg/dL (8.4-10.2); Carbon Dioxide 23 mmol/L (22-30); Chloride 104 mmol/L (98-107); Estimated CRCL calculation 51 ml/min; Estimated Glomerular Filt Rate > 60; Glucose 111 mg/dL (65-110); Potassium 4.1 mmol/L (3.4-5.0); Sodium 134 mmol/L (137-145)
--- NOTE | 2024-03-01 12:39 | ECG_ITS ---
Test Date: 2024-03-01 12:48:09 Measurements Intervals [place] Rate: 68 P: 0 [place]: 0 QRS: 0 QRSD: 108 T: -54 QT: 380 QTc: 405 Interpretive Statements ATRIAL FIBRILLATION LOW QRS VOLTAGE IN PRECORDIAL LEADS INCOMPLETE RIGHT BUNDLE BRANCH BLOCK INFERIOR INFARCT, AGE INDETERMINATE CONSIDER ANTERIOR INFARCT, AGE INDETERMINATE ST-T WAVE ABNORMALITY IN ANTEROLATERAL LEADS- CONSIDER ISCHEMIA BASELINE ARTIFACT- I, II, III, AVR, AVL, AVF, V1 ABNORMAL ECG Compared to ECG 03/01/2024 10:35:39 HEART RATE HAS DECREASED ST-T WAVE ABNORMALITY, CONSIDER ISCHEMIA NOW PRESENT Electronically Signed On 03-01-2024 17:00:37 CDT by Jacob Sanchez D.O.
[2024-03-01 12:45] LABS: NT Pro B Type Natriuretic Pept 1430 pg/mL (19.9-100); Troponin I < 0.012 ng/mL (0.000-0.034)
== END 2024-03-01 13:08 | disposition home or self-care (01) ==
PROVIDERS: Emergency Provider Emergency Medicine
DX: I48.0 Paroxysmal atrial fibrillation (principal); I12.9 Hypertensive chronic kidney disease with stage 1 through stage 4 chronic kidney disease, or unspecified chronic kidney disease; N18.30 Chronic kidney disease, stage 3 unspecified; Z85.038 Personal history of other malignant neoplasm of large intestine; Z98.42 Cataract extraction status, left eye; Z98.41 Cataract extraction status, right eye; Z90.49 Acquired absence of other specified parts of digestive tract; Z79.01 Long term (current) use of anticoagulants; I45.10 Unspecified right bundle-branch block; R94.31 Abnormal electrocardiogram [ECG] [EKG]
CPT/HCPCS: 36415; 71045; 80053; 81003; 83880; 84443; 84484; 85025; 85610; 85730; 93005; 96365; 99284; A9270

== ENCOUNTER 2024-03-18 13:19 | Outpatient (CLI) | payer MEDICARE, OTHER, SELFPAY ==
[2024-03-18 13:37] LABS: Basophils Absolute Auto 0.1 K/mm3 (0.0-0.1); Basophils Percent Auto 1.7 % (0.2-1.2); Eosinophils Absolute Auto 0.2 K/mm3 (0-0.3); Eosinophils Percent Auto 3.5 % (0-4.4); Hematocrit 39.4 % (37.0-47.0); Hemoglobin 13.3 g/dL (12.0-15.0); Immature Granulocyte Absolute 0.01 K/mm3 (0.00-0.031); Immature Granulocyte Percent A 0.2 % (0-0.5); Lymphocytes Absolute Auto 0.96 K/mm3 (0.9-3.2); Mean Corpuscular HGB Conc 33.8 g/dl (32-36); Mean Corpuscular Hemoglobin 30.4 pg (26-34); Mean Corpuscular Volume 90.2 fl (80-100); Mean Platelet Volume 9.3 fl (7.4-10.4); Monocytes Absolute Auto 0.6 K/mm3 (0.1-0.6); Monocytes Percent Auto 11.9 % (2.6-8.5); Neutrophils Percent Auto 62.7 % (45.5-73.1); Platelet Count Result 222 k/mm3 (150-375); Red Blood Count 4.37 M/mm3 (4.2-5.4); Red Cell Distribution Width 12.6 % (11.5-14.5); White Blood Count 4.8 K/mm3 (4.5-10.0)
[2024-03-18 17:10] LABS: Alanine Aminotransferase 20 U/L (6-35); Albumin Level 4.3 g/dL (3.5-5.1); Alkaline Phosphatase 113 U/L (38-126); Anion Gap 8 mmol/L (4-12); Aspartate Amino Transferase 30 U/L (14-36); Bilirubin,Total 0.7 mg/dL (0.2-1.3); Blood Urea Nitrogen 20 mg/dL (7-17); Calcium 10.1 mg/dL (8.4-10.2); Carbon Dioxide 27 mmol/L (22-30); Chloride 101 mmol/L (98-107); Estimated Glomerular Filt Rate 49; Glucose 102 mg/dL (65-110); Sodium 136 mmol/L (137-145)
[2024-03-18 17:40] LABS: Carcinoembryonic Antigen 1.1 ng/mL (0.0-3.0)
[2024-03-20 02:48] LABS: CA 15-3 16 U/mL (<32)
== END 2024-03-18 13:20 | disposition home or self-care (01) ==
LOC: ANHLAB 13:21
PROVIDERS: Visit Provider Internal Medicine Hematology & Oncology
DX: C50.911 Malignant neoplasm of unspecified site of right female breast (principal); Z17.0 Estrogen receptor positive status [ER+]
CPT/HCPCS: 36415; 80053; 82378; 85025; 86300

== ENCOUNTER 2024-04-28 07:53 | Outpatient (CLI) | payer MEDICARE, OTHER, SELFPAY ==
--- NOTE | ~2024-04-28 | DEXA_ITS ---
Bone Density Report Name: DOMINGO ANGLIN Age: 69 Sex: Female Ethnicity: White Date of : 1955 Indication: hyperparathyroidism; cancer; Referring Provider: FEROZ CUADRA Study: Bone densitometry was performed. Exam Date: April 28, 2024 Accession number: [id number] Bone Density: Region BMD T-score Z-score Classification AP Spine(L1-L4) 0.851 -1.8 0.4 Osteopenia Femoral Neck (Left) 0.705 -1.3 0.6 Osteopenia Total Hip (Left) 0.835 -0.9 0.7 Normal Femoral Neck (Right) 0.747 -0.9 0.9 Normal Total Hip (Right) 0.793 -1.2 0.3 Osteopenia Total Hip Mean 0.814 -1.1 0.5 Osteopenia World Health Organization criteria for BMD impression classify patients as: Normal (T-score at or above -1.0), Osteopenia (T-score between -1.0 and -2.5), or Osteoporosis (T-score at or below -2.5). 10-year Fracture Risk(1): Major Osteoporotic Fracture 9.1% Hip Fracture 1.2% Reported Risk Factors: [place] (), Neck BMD=0.705, BMI=33.9 (1) FRAX(R) Version 3.08. Fracture probability calculated for an untreated patient. Fracture probability may be lower if the patient has received treatment. Clinical Information Provided by Patient: Has used the following medications: Vitamin D, Calcium Has the following medical conditions: Cancer, Hyperparathyroidism Patient maximum height was 62.0 No regular weight bearing exercise Does not regularly consume dairy products Drinks caffeinated beverages Onset of menses at age 12 Number of children 3 Impression: The patient has low bone mass, based on the Total Spine T-score. The patient has an estimated ten-year risk of hip fracture of 1.2% and an estimated ten-year risk of major fracture of 9.1%, based on the WHO FRAX algorithm. Discussion: BONE DENSITY IS LOW AT ONE OR MORE SKELETAL SITES. This patient's lowest T-score is low at one or more skeletal sites. It meets the World Health Organization's (WHO) criteria for ?low bone mass? (T-score between -1.0 and -2.5). The patient's 10-year risk of fracture as calculated by FRAX is less than the threshold where pharmacological therapy is recommended by the National Osteoporosis Foundation (NOF). However, all treatment decisions require clinical judgment and consideration of individual patient factors, including patient preferences, comorbidities, previous drug use, risk factors not captured in the FRAX model (e.g., frailty, falls, vitamin D deficiency, increased bone turnover, interval significant decline in bone density) and possible under or overestimation of fracture risk by FRAX. The patient should follow a healthful lifestyle (good nutrition with adequate calcium and vitamin D, and appropriate weight-bearing exercise). Follow-Up: Consider repeating this study in 2 to 3 years to reassess this patient's status, or sooner if there is some new clinical indication. Reported by: JAY on 04/28/2024 8:23:00 AM. Reviewed, dictated and finalized at location [facility] [email or web address]
== END 2024-04-28 07:54 | disposition home or self-care (01) ==
LOC: ANHIMG 07:55
PROVIDERS: Visit Provider Internal Medicine Hematology & Oncology
DX: M85.89 Other specified disorders of bone density and structure, multiple sites (principal)
CPT/HCPCS: 77080

== ENCOUNTER 2024-07-28 11:33 | Outpatient (CLI) | payer MEDICARE, OTHER, SELFPAY ==
[2024-07-28 12:12] LABS: Basophils Absolute Auto 0.1 K/mm3 (0.0-0.1); Basophils Percent Auto 1.8 % (0.2-1.2); Eosinophils Absolute Auto 0.1 K/mm3 (0-0.3); Eosinophils Percent Auto 2.7 % (0-4.4); Hematocrit 36.1 % (37.0-47.0); Hemoglobin 12.8 g/dL (12.0-15.0); Immature Granulocyte Absolute 0.02 K/mm3 (0.00-0.031); Immature Granulocyte Percent A 0.5 % (0-0.5); Lymphocytes Absolute Auto 0.81 K/mm3 (0.9-3.2); Lymphocytes Percent Auto 18.5 % (18.3-44.2); Mean Corpuscular HGB Conc 35.5 g/dl (32-36); Mean Corpuscular Hemoglobin 31.1 pg (26-34); Mean Corpuscular Volume 87.8 fl (80-100); Mean Platelet Volume 9.7 fl (7.4-10.4); Monocytes Absolute Auto 0.5 K/mm3 (0.1-0.6); Monocytes Percent Auto 12.3 % (2.6-8.5); Neutrophils Absolute Auto 2.8 K/mm3 (1.3-6.7); Neutrophils Percent Auto 64.2 % (45.5-73.1); Platelet Count Result 212 k/mm3 (150-375); Red Blood Count 4.11 M/mm3 (4.2-5.4); White Blood Count 4.4 K/mm3 (4.5-10.0)
[2024-07-28 13:16] LABS: Alanine Aminotransferase 19 U/L (6-35); Albumin Level 4.2 g/dL (3.5-5.1); Alkaline Phosphatase 122 U/L (38-126); Anion Gap 11 mmol/L (4-12); Aspartate Amino Transferase 27 U/L (14-36); Bilirubin,Total 0.7 mg/dL (0.2-1.3); Blood Urea Nitrogen 19 mg/dL (7-17); Calcium 10.5 mg/dL (8.4-10.2); Carbon Dioxide 21 mmol/L (22-30); Chloride 100 mmol/L (98-107); Estimated Glomerular Filt Rate 57; Glucose 100 mg/dL (65-110); Potassium 4.5 mmol/L (3.4-5.0); Sodium 132 mmol/L (137-145)
--- OUTSIDE RECORDS SUMMARY | 2024-07-28 13:32 | XMS_ITS | Data Portability ---
[facility] Address [address] [place] [address] Care Team Providers Care Trimmer Helper Name Role Phone LI, TAMIKA Primary Care Provider [phone] FEROZ CUADRA Radiation Oncologist Assessment No assessment recorded. Plan of Treatment Reminders Order Date Submit Date Provider Last Modified By Organization Details Last Modified Time Details Appointments None recorded. Lab TSH, serum or plasma 2024 025 [facility], [address], [address], [place], [address], 5 08:04:16 TSH + free T4, serum 2023 024 [facility], [address], [address], [place], [address], 4 07:11:28 SARS CoV 2 RNA (COVID-19) , QL, clinical resource coordinator-PCR, respirator y specimen 2020 021 [facility], [address], [address], [place], [address], 1 16:10:[address] referral 2024 025 [place], [address] [address], [address], [place], [address], 5 10:04:35 Procedures None recorded. Surgeries None recorded. Imaging MAMMO, screening, digital, bilateral 2020 [facility], [address], [address], [place], [address], 15:56:43 home sleep study 2020 [facility], [facility] [address], [place], [address], 17:04:17 XR, chest, 2 view 2020 [facility], [facility] [address], [place], [address], 17:04:17 spirometry , pre and post bronchodil ation - Please contact patient to schedule appointmen t. Thank you 2020 [facility], [facility] [address], [place], [address], 15:54:51 PFT, pulmonary stress test 2020 [facility], [facility] [address] [address], [place], [address], 17:04:17 Medication Orders None recorded. Patient TargetsNo targets recorded. Patient Instructions Encounter Date Encounter Id Patient Instructions Last Modified By Organization Details Last Modified Time 03/30/2021 [id number] A healthy lifestyle: care instructions Not available 03/31/2021 00:43:05 mammogram: about this test Not available 03/30/2021 16:53:35 low sodium diet (2,000 milligram): care instructions Not available 03/31/2021 00:43:05 heart-healthy diet: care instructions Not available 03/31/2021 00:43:05 Increase intake of fresh fruits, and vegetables. Avoid packaged foods and fast foods. Follow a low salt diet, drink at least 8-10 8oz glasses of water a day, exercise most days of the week. Take all medications as prescribed. Keep appointments with PCP and all specialists. Not available 03/31/2021 00:43:28 make apt after your cardiology follow up Not available 03/31/2021 00:43:43 01/09/2024 [id number] When You Want to Lose Weight: Care Instructions Not available 01/09/2024 18:35:57 low sodium diet (2,000 milligram): care instructions Not available 01/09/2024 18:36:55 high blood pressure: care instructions Not available 01/09/2024 18:36:55 chronic obstructive pulmonary disease (COPD): care instructions Not available 01/09/2024 18:35:57 learning about copd and how to prevent lung infections Not available 01/09/2024 18:35:57 Increase intake of fresh fruits, and vegetables. Avoid packaged foods and fast foods. Follow a low salt diet, drink at least 8-10 8oz glasses of water a day, exercise most days of the week. Take all medications as prescribed. Keep appointments with PCP and all specialists. Not available 01/09/2024 18:40:44 follow up as needed Not available 01/09/2024 18:40:53 06/26/2024 [id number] A healthy lifestyle: care instructions Not available 06/26/2024 09:09:49 low sodium diet (2,000 milligram): care instructions Not available 06/26/2024 09:09:49 high blood pressure: care instructions Not available 06/26/2024 09:09:49 Increase intake of fresh fruits, and vegetables. Avoid packaged foods and fast foods. Follow a low salt diet, drink at least 8-10 8oz glasses of water a day, exercise most days of the week. Take all medications as prescribed. Keep appointments with PCP and all specialists. 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 8 normal Not Available [address], [address], 01/11/2024 07:11:28 06/28/19 25 06/29/2024 TSH W/REF INA TO FT4 TSH w/reflex to FT4 10.46 mIU/L 0.40-4 .50 high Not Available [address], [address], 06/29/2024 10:10:11 06/28/19 25 06/29/2024 T4, FREE T4, free 1.2 NG/dL 0.8-1. 8 normal Not Available [address], [address], 06/29/2024 10:10:14 03/15/20 21 03/09/2021 CT, abdom en + pelvi s, w/wo contr ast No observ ation record ed. Not Available 2020 13:42:08 10/18/19 22 10/06/2021 pulmo nary funct ion test* No observ ation record ed. [email or web address] Not Available 10/20 11:39:49 10/29/19 22 10/21/2021 US, renal No observ ation record ed. Not Available 2021 23:52:21 03/15/20 22 03/14/2022 CT, abdom en + pelvi s, w/o contr ast No observ ation record ed. [email or web address] [address], [place], [address], 03/20/2022 09:26:42 03/22/20 22 03/22/2022 MAMMO , scree ezequiel, digit al, bilat eral No observ ation record ed. [address], [place], [address], 03/27/2022 23:23:36 05/30/20 22 05/30/2022 MRI, brain + brain stem, w/ contr ast No observ ation record ed. [address], [place], [address], 06/06/2022 17:33:13 06/06/19 23 05/29/2022 US, echoc ardio gram No observ ation record ed. [email or web address] [email or web address] Not Available 2022 16:39:39 08/17/19 23 08/16/2022 US, ara kumar, lorenaa teral No observ ation record ed. [email or web address] [address], [place], [address], 08/17/2022 16:42:17 08/30/19 23 08/22/2022 biops y of ara kumar; ginny lynch , needl e core, using imagi marcel ceja (PROC ) No observ ation record ed. [address], [place], [address], 08/29/2022 12:54:41 Result Notes None recorded. Problems Name Problem SNOMED Code Status Onset Date Resolution Date Notes Provider Name and Address Organization Details Recorded Time Hypertensive disorder 05615862 Active 2020 seen by cardio Tamika Li APN, FORK OPERATOR-C Attn: Eloise quiroz,[address], [place], [address], [facility] 11:14:03 History of atrial fibrillation 803618510 Active 2020 sees cardio Tamika Li CLIENT ADVOCATE, FORK OPERATOR-C Attn: Eloise quiroz,[address] [facility], [place], [address], [facility] - [facility] 1 11:14:20 History of malignant neoplasm of colon 484169119 Active 2020 chemo Tamika Li CLIENT ADVOCATE, FORK OPERATOR-C Attn: Eloise quiroz,[address] [facility], [place], [address], [facility] - [facility] 1 11:14:46 Serum thyroid stimulating hormone level outside reference range 874052661 Active 2020 Tamika Li CLIENT ADVOCATE, FORK OPERATOR-C Attn: Eloise quiroz,[address] [facility], [place], [address], [facility] - [facility] 1 15:03:19 Decreased renal function 66785299 Active 2020 Tamika Li APN, FORK OPERATOR-C Attn: Eloise quiroz,[address], [place], [address], [facility] - [facility] 1 15:03:19 Liver enzymes level above reference range 197568187 Active 2020 Tamika Li APN, FORK OPERATOR-C Attn: Eloise quiroz,[address] [facility] [address], [place], [address], [facility] - [facility] 1 15:03:20 Chronic obstructive pulmonary disease 63170596 Active 2020 Agnieszka Del Valle RN null, [place] - [place] 1 12:29:45 Obesity 419094676 Active 2020 Tamika Li CLIENT ADVOCATE, FORK OPERATOR-C Attn: Eloise quiroz,[address], [place], [address], [facility] 00:42:47 Problem Notes None recorded. Procedures Surgical History Date Name Laterality Status Provider Name and Address Organization Details Recorded Time 3 Breast Surgery completed Laly Lundberg MA [facility] 01/09/2024 17:10:07 Caesarean Section completed Lizzy Maher [facility] 06/07/2020 09:57:59 partial resection of colon completed Lizzy Maher [facility] 06/07/2020 09:58:56 Unlisted px cardiac surgery completed Christina Flores MA [facility] 12/17/2020 15:58:51 procedure on heart completed Laly Lundberg MA [facility] 01/09/2024 17:10:27 Imaging Results Imaging Date Name Status LastModified by Organization Details LastModified Time 03/09/2021 CT, abdomen + pelvis, w/wo contrast completed [email or web address] Information not available 03/15/2021 13:42:08 10/06/2021 pulmonary function test* completed [email or web address] Information not available 10/20/2021 11:39:49 10/21/2021 US, renal [email or web address] Information no t available 10/31/2021 23:52:21 03/14/2022 CT, abdomen + pelvis, w/o contrast completed [address], [address], 03/20/2022 09:26:42 03/22/2022 MAMMO, screening, digital, bilateral completed [address], [address], 03/27/2022 23:23:36 05/30/2022 MRI, brain + brain stem, w/ contrast completed [address], [address], 06/06/2022 17:33:13 05/29/2022 US, echocardiogram [place] [address] Inform ation not available 06/06/2022 16:39:39 08/16/2022 US, breast, unilateral completed [address], [address], 08/17/2022 16:42:17 08/22/2022 biopsy of breast; percutaneous, needle core, using imaging guidance (PROC) completed [address], [address], 08/29/2022 12:54:41 Procedure Notes None recorded. Medical Equipment None Reported. Allergies Allergen ID Allergen Name Allergen Category Reaction Reaction Severity Criticality Documentation Date Start Date Code Code System Note Provider Name and Address Organization Details Recorded Time 720416 morphine medicatio n Not available Not available Not available 06/07/20202022 7052 RxNorm Respi rator y depre ssion /Apne a follo wing intra theca l morph ine in doses used histo rical ly but not curre ntly due to now recog nized dose relat ed respi rator y depre ssion . Cause s her her to stop breat raúl. Not Available Not Available Not Available 820402 lisinopri l medicatio n Not available Not available Not available 06/26/2024 29678 RxNorm Not Available Not Available Not Available 534536 erythromy abida medicatio n Not available Not available Not available 06/26/2024 4053 RxNorm Not Available Not Available Not Available 607929 nebivolol medicatio n angioedem a Not available Not available 06/26/2024 88290 RxNorm Not Available Not Available Not Available 175460 Product containin g macrolide and antibioti c (product) medicatio n Not available Not available Not available 06/26/2024 25493 8007 SNOMED Not Available Not Available Not Available 288529 hydrocodo ne Not available Not available Not available Not available 06/26/2024 5489 RxNorm Not Available Not Available Not Available Medications Name Sig Start Date Stop Date Status Note LastModified by Organization Details LastModified Time furosemide 40 mg tablet TAKE 1 TABLET BY MOUTH DAILY NEEDED FOR EDEMA / WEIGHT GAIN active PRN Not Available Not Available No t Available anastrozol e 1 mg tablet Take 1 tablet every day by oral route. active Not Available Not Available No t Available flecainide 150 mg tablet 12/17 completed Not Available Not Available Not Available azithromyc in 250 mg tablet 01/08 completed Not Available Not Available Not Available amiodarone 200 mg tablet TAKE 2 TABLETS BY MOUTH ONCE DAILY 01/08 completed Not Available Not Available Not Available hydrocodon e 5 mg-acetami nophen 325 mg tablet TAKE 1 TO 2 TABLETS BY MOUTH EVERY 6 HOURS NEEDED 12/17 completed Not Available Not Available Not Available metoprolol succinate ER 100 mg tablet,ext ended release 24 hr 03/18 completed Not Available Not Available Not Available amlodipine 5 mg tablet 01/08 completed Not Available Not Available Not Available levothyrox ine 25 mcg tablet TAKE 1 TABLET BY MOUTH EVERY DAY IN THE MORNING active Not Available Not Available No t Available ketorolac 0.5 % eye drops INT 1 GTT INTO THE OPERATIV E EYE TID. BEGINNIN G 2 DAYS B SURGERY 06/07 completed as needed Not Available Not Available Not Available warfarin 5 mg tablet Take 1 tablet every day by oral route. 12/17 completed Not Available Not Available Not Available Advair Diskus 250 mcg-50 mcg/dose powder for inhalation INHALE 1 PUFF BY MOUTH TWICE DAILY 01/08 completed Not Available Not Available Not Available metoprolol tartrate 50 mg tablet TAKE 1/4 TABLET BY MOUTH TWICE DAILY active Not Available Not Available No t Available sertraline 25 mg tablet TAKE 1 TABLET BY MOUTH DAILY active Not Available Not Available No t Available metoprolol succinate ER 25 mg tablet,ext ended release 24 hr 03/18 completed Not Available Not Available Not Available albuterol sulfate HFA 90 mcg/actuat ion aerosol inhaler INHALE 1 PUFF BY MOUTH FOUR TIMES DAILY NEEDED SHORTNES S OF BREATH OR WHEEZING active Not Available Not Available No t Available amoxicilli n 875 mg-potassi um clavulanat e 125 mg tablet TAKE 1 TABLET BY MOUTH EVERY 12 HOURS 01/08 completed Not Available Not Available Not Available DILT-XR 120 mg capsule, extended release Take 1 capsule every day by oral route. 06/26 completed Not Available Not Available Not Available DILT-XR 180 mg capsule, extended release 01/08 completed Not Available Not Available Not Available omeprazole 01/08 completed Not Available Not Available Not Available Claritin 01/08 completed Not Available Not Available Not Available Eliquis 5 mg tablet Take 1 tablet twice a day by oral route. active Not Available Not Available No t Available Piki COVID-19 Vaccine (PF) 30 mcg/0.3 mL IM susp (purple) ADMINIST ER 0.3ML IN THE MUSCLE DIRECTED 03/30 completed 1st dose 0 Not Available Not Available Not Available Vitals Date Recorded Body height Oxygen saturation Oxygen saturation in Arterial blood by Pulse oximetry Heart rate Respiratory rate Body temperature Body mass index (BMI) Body weight Systolic blood pressure Diastolic blood pressure Provider Name and Address Organization Details Last Updated DateTime 1 154.94 cm 96 % 96 % 65 /min 16 /min 97.5 [degF] 40.4 kg/m2 70783.7 7 g 118 mm[Hg] 84 mm[Hg] Christina Flores MA [facility] 1 15:42:45 Date Recorded Body height Body mass index (BMI) Body weight Oxygen saturation Oxygen saturation in Arterial blood by Pulse oximetry Heart rate Respiratory rate Body temperature Systolic blood pressure Diastolic blood pressure Provider Name and Address Organization Details Last Updated DateTime 1 154.94 cm 41.1 kg/m2 11464.6 9 g 96 % 96 % 67 /min 16 /min 97.7 [degF] 124 mm[Hg] 80 mm[Hg] Christina Flores MA [facility] 1 16:34:03 Date Recorded Body height Body mass index (BMI) Body weight Oxygen saturation Oxygen saturation in Arterial blood by Pulse oximetry Heart rate Respiratory rate Body temperature Systolic blood pressure Diastolic blood pressure Provider Name and Address Organization Details Last Updated DateTime 4 154.94 cm 37.8 kg/m2 45098.4 7 g 96 % 96 % 78 /min 16 /min 97.5 [degF] 147 mm[Hg] 91 mm[Hg] Laly Lundberg MA [facility] 4 17:14:37 Date Recorded Body height Body mass index (BMI) Body weight Oxygen saturation Oxygen saturation in Arterial blood by Pulse oximetry Respiratory rate Heart rate Body temperature Systolic blood pressure Diastolic blood pressure Provider Name and Address Organization Details Last Updated DateTime 5 154.94 cm 34 kg/m2 82785.6 3 g 97 % 97 % 18 /min 132 /min 97.3 [degF] 126 mm[Hg] 80 mm[Hg] ANNE Baum [facility] 5 08:40:26 Social History Question Answer Notes LastModified by Organizat ion Details LastModified Time Tobacco Smoking Status Never Smoker Lizzy Gunnar [facility], [facility] 06/07/2020 09:54:27 Do You Have An Advance Directive? No Information not available 12/17/2020 What Is Your Level Of Alcohol Consumption? None [email or web address] Information not available 06/07/2020 Are You Blind Or Do You Have Difficulty Seeing? No Reading Glasses Information not available 01/09/2024 What Is Your Level Of Caffeine Consumption? Occasional [email or web address] Information not available 06/07/2020 How Much Tobacco Do You Chew? None [email or web address] Information not available 06/07/2020 In The 14 Days Before Symptom Onset, Have You Had Close Contact With A Laboratory-confi rmed COVID-19 While That Case Was Ill? No Information not available 01/09/2024 In The 14 Days Before Symptom Onset, Have You Had Close Contact With A Person Who Is Under Investigation For COVID-19 While That Person Was Ill? No Information not available 01/09/2024 Have You Been To An Area Known To Be High Risk For COVID-19? No [email or web address] Information not available 06/07/2020 Are You Currently Employed? No Information not available 01/09/2024 Are You Deaf Or Do You Have Serious Difficulty Hearing? No Information not available 12/17/2020 What Type Of Diet Are You Following? REGULAR Trying To Cut Out Fast Food Weight Watchers Information not available 06/26/2024 Which Illicit Or Recreational Drugs Have You Used? Denies [email or web address] Information not available 06/07/2020 Do You Or Have You Ever Used E-cigarettes Or Vape? 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 Yes [email or web address] Information not available 06/07/2020 Marital Status [email or web address] Informatio n not available 06/07/2020 What Was The Date Of Your Most Recent Tobacco Screening? 06/26/2024 Information not available 06/26/2024 Performs Monthly Self-breast Exam? Yes [email or web address] Information not available 06/07/2020 What Is Your Relationship Status? Information not available 12/17/2020 Do You Use Your Seat Belt Or Car Seat Routinely? Yes Information not available 12/17/2020 Seat Belts Used Routinely Yes Information not available 06/07/2020 Smoke Alarm In Home Yes [email or web address] Information not available 06/07/2020 Do You Have Smoke And Carbon Monoxide Detectors In Your Home? Yes Information not available 12/17/2020 Are You Passively Exposed To Smoke? No Information not available 12/17/2020 Do You Or Have You Ever Used Smokeless Tobacco? Never Used Smokeless Tobacco [email or web address] Information not available 06/07/2020 How Much Tobacco Do You Smoke? No [email or web address] Information not available 06/07/2020 General Stress Level Medium [email or web address] Information not available 06/07/2020 Do You Feel Stressed (tense, Restless, Nervous, Or Anxious, Or Unable To Sleep At Night)? [id number] Information not available 01/09/2024 Do You Use Any Illicit Or Recreational Drugs? No Information not available 01/09/2024 Do You Use Sunscreen Routinely? Yes [email or web address] Information not available 06/07/2020 Has Tobacco Cessation Counseling Been Provided? No Information not available 01/09/2024 On What Date Was Tobacco Cessation Counseling Provided? 06/26/2024 Information not available 06/26/2024 How Many Years Have You Smoked Tobacco? 0 [email or web address] Information not available 06/07/2020 Do You Or Have You Ever Used Any Other Forms Of Tobacco Or Nicotine? No Information not available 12/17/2020 Sex: Unknown Functional Status Question Answer Note LastModified by Organization D etails LastModified Time Are you able to care for yourself? Yes Information n ot available 12/17/2020 What is your exercise level? None Information not available 06/07/2020 Mental Status None recorded. Family History Relationship Description Onset Age of this Age Resolved Age Notes LastModified by Organization Details LastModified Time Unspecified Relation Malignant tumor of colon cousin s [email or web address] Not available 06/07/2020 09:52:48 Unspecified Relation Leukemia cousin s Not available 06/07/2020 09:53:10 Father No current problems or disability Not available 06/07 10:29:09 Mother No current problems or disability Not available 06/07 10:29:09 Medical History Condition Response Coronary Artery Disease N Other N High Blood Pressure Y Atrial Fibrillation Y Thyroid Problems Y Kidney or Bladder Problems Y GI Problems N Depression N COPD Y Blood Clots Y Skin Problems N Eating Disorder N Anemia Y Heart Attack ([place]) N Anxiety Disorder N Diabetes N Muscle, Joint, or Bone Problems N Arthritis N Seizures/Epilepsy N Acid Reflux (GERD) Y Cancer Y Stroke N Asthma N Allergies Y ADHD N Substance Abuse N High Cholesterol N Hepatitis N Liver Disease N Schizophrenia N Headaches N Heart Failure N Osteoporosis N Gynecological HistoryNo gynecological history recorded. Obstetrics History GPAL:G 4 P 3 1 0 3 Type Value Multiple Births 0 Full Term 3 Induced 0 Spontaneous 0 Premature 1 Living 3 Ectopics 0 Total 4 Immunizations Vaccine Type Date Status Note Provider Nam e and Address Organization Details Recorded Time SARS-COV-2 (COVID-19) vaccine, UNSPECIFIED 0 completed Not Available [facility] 03/29/2023 12:16:39 SARS-COV-2 (COVID-19) vaccine, UNSPECIFIED 1 completed Not Available [facility] 03/29/2023 12:16:39 COVID-19, mRNA, LNP-S, PF, 30 mcg/0.3 mL dose, iliana-sucrose 2 completed Tamika Li APN, AGUSTINA Attn: Accounting[address] [place], [address], [place] [facility] 01/09/2024 17:18:46 COVID-19, mRNA, LNP-S, PF, 30 mcg/0.3 mL dose 10/27/202 1 completed Christina Flores MA [facility], [place] - [facility] 03/30/2021 17:18:04 Past Encounters Encounter ID Performer Location Encounter Start Date Encounter Closed Date Diagnosis/Indication Diagnosis SNOMED-CT Code Diagnosis ICD10 Code Diagnosis Note [id number] Tamika Li APN, AGUSTINA [facility] (Adult Med) [address] [place] [address] 06/07/2020 09:39:14 06/08/2020 09:10:09 Adult health examination 241563077 Z00.01 recent labs in March; Atrial fibrillation 4943 6004 I48.91 weekly with cardio; coumadin by cardio [id number] Tamika Li APN, FNP-C [place] (Adult Med) [address] [facility] [place] [address] 12/17/2020 15:46:19 12/21/2020 10:02:50 Hypertensive disorder 05382101 I10 cont meds from cardio Dyspnea 510253259 R06.00 dwp prn inhaler and will refer to pulmonary or further testing Morbid obesity 183058014 E66.01 advised low fat, low cholestero l diet, regular exercise and weight reduction. [id number] RAFA NELSON (Adult Med) [address] [place] [address] 03/18/2021 15:37:00 03/23/2021 08:01:22 Chronic obstructive pulmonary disease 19053378 J44.9 reports hx of Chrnoic bronchitis , ordering PFT, 6 min walkContin ue MDI as prescribed Body mass index 40+ - severely obese 161679980 Z68.41 Pulmonary hypertension 81298443 I27.20 Echo done at [facility], reports PHTN noted. will request records. Dyspnea on exertion 6084 5006 R06.09 CXRPFT pendingTak ing amiodarone Gastroesop hageal reflux disease 132048679 K21.9 Gerd- omeprazole , small sliding hiatal hernia History of atrial fibrillation 571133424 Z86.79 She currently has Afib, ablation set for 03/21/[address] [facility] [address] Alanis Sleep apnea 68815188 G47 .30 Would benefit from home sleep study [id number] Tamika Li APN, FNP-C [place] (Adult Med) [address] [place] [address] 03/30/2021 16:14:46 04/04/2021 10:49:17 Hypertensive disorder 96037401 I10 stable, cont meds from cardio Screening mammography 24 742031 Z12.31 mammogram order provided Obesity 758962709 E66.9 advised low fat, low cholestero l diet, regular exercise and weight reduction. [id number] [facility] 2 [place] [address] 03/30/2021 17:01:15 04/04/2021 10:51:38 Administration of SARS-CoV-2 mRNA vaccine [id number] Z23 [id number] Tamika Li APN, FNP-C [facility] [address] [place] [address] 01/09/2024 16:54:51 01/10/2024 10:49:40 Chronic obstructive pulmonary disease [id number] J44.9 cont prn inhaler Obesity 410540220 E66.9 advised low fat, low cholestero l diet, regular exercise and weight reduction. Decreased renal function 29125098 R94.4 sees nephrology , will get records Hypertensive disorder 38 720175 I10 elevated today, cardio reduced her meds due to dropping too low, now runs higher but they are ok with her bp where it iscont meds from cardio/nep hrology History of atrial fibrillation [id number] Z86.79 pt on eliquis, sees adán had mutliple ablation procedures done but they did not work,due to this, cardio has decided to to try to control with meds, they are concerned about giving her thyroid replacemen t should this be an issue- will get lab and records Serum thyr oid stimulating hormone level outside reference range [id number] R79.89 due to her a fib, cardio is concerned about giving her thyroid replacemen t should this be an issue- will get lab and records [id number] Tamika Li APN, FNP-C [facility] [address] [place] [address] 06/26/2024 08:28:26 07/09/2024 08:46:39 Hypertensive disorder 25114248 I10 sees cardio-sta ble currently but not feeling like she is getting heardcont meds from cardio/nep hrology Decreased renal function 36555814 R94.4 sees nephrology , will get records History of atrial fibrillation [id number] Z86.79 pt on eliquis, sees cardiojustine had mutliple ablation procedures done but they did not work,due to this, cardio has decided to to try to control with meds, they are concerned about giving her thyroid replacemen t should this be an issue- will get labwill refer to new cardio Obesity 389935094 E66.9 advised low fat, low cholestero l diet, regular exercise and weight reduction. Disorder o f thyroid gland 23385129 E07.9 due to her a fib, cardio is concerned about giving her thyroid replacemen t should this be an issue- will get lab and records Health Concerns Section Related Observation LastModified by Organization Detai ls LastModified Time None Recorded Concern Status LastModified by Organization Details LastModified Time None Recorded Advance Directives Directive N: Payers Encounter Date Sequence Insurance Name Policy Number Policy Jaeger Covered Member ID Jaeger Member ID Guarantor Name 03/18/2021 3 *SELF PAY* Vi vian Brynn 03/18/2021 1 [place] [id number] Linda Swain [id number] Linda Swain 03/30/2021 3 *SELF PAY* Vi vian Brynn 03/30/2021 1 [place] [id number] Linda Swain [id number] Linda Swain 03/30/2021 3 *SELF PAY* Vi vian Brynn 03/30/2021 1 [place] [id number] Linda Swain [id number] Linda Swain 01/09/2024 1 [place] Linda Swain [id number] Linda Swain 01/09/2024 2 [employer] [place] (MEDICARE SUPPLEMENT) Linda Swain [id number] Linda Swain 06/26/2024 1 [place] Linda Swain [id number] Linda Swain 06/26/2024 2 [employer] [place] [employer] [place] (MEDICARE SUPPLEMENT) Linda Mitchell Brynn [id number] Linda Swain Notes Date Note Type Note Provider Name and Address Organization Details Recorded Time 03/18/2021 text/html Referred for dys pnea PMH: COPD, morbid obesity, htn , decreased renal function, afib, She currently has Afib, ablation set for 03/21/[address] [facility] [address] Falcon amiodarone since 06/24 reports SOB began initially 2016, this is same time afib began. FIrst ablation done 08/26/20 at [facility],it was unsuccessful due to issue during procedure. SOB with exertiondenies CP, wheezing,coughing allergies+PND Advair 250 mcgalbuterol as neededreports they dont work well aggravating factors: weather change Gerd- omeprazole, small sliding hiatal hernia hx colon cancer 04/2018, bowel resection, chemo for 6 months . 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 was started on lasix but no potassium, no recent labs Today:here for follow up, no new concerns, has sucessful ablation and is feeling a little better already, saw pulmonary and will be following up with both, needs mammogram, thought she felt a lump but was due for one anyway Tamika Li APN, FORK OPERATOR-C Attn: Accounting,[address] [facility] [address], [place], [address], [place] - [place] 03/31/2021 00:44:57 01/09/2024 text/html re establish w/ PCP, pt was sick but is much better went to ER and was dx with bronchitis hx of colon and breast cancer, still follows with oncology recent labs showing elevated tsh Tamika Li APN, FNP-C Attn: Accounting,[address] [facility], [place], [address], [place] - [facility] 01/09/2024 18:44:53 06/26/2024 text/html afib with RvR. b was high and told her to have her TSH checked. states she always been light headed. Tamika Li APN, FNP-[place] Attn: Accounting[address] [place], [address], [place] 07/04/2024 13:07:02 OBGyn Episode Ob Episode Information Episode Created Date Number of Fetuses Patient Bloodtype Patient rh Status Prepregnancy Weight lbs Domestic Partner Domestic Partner Phone Father Name Warehouseman Status 06/07/19 21 1 CLOSED Fetus Data First Name Last Name Admitted to NICU Weight (g) Sex Living Outcome Pediatric Complications Fetus ID Race Codes Race Delivery Type Demise [id number] Vaginal Corona Calculation Initial Corona Date Initial Exam Date Initial Exam Provider Initial Ultrasound Date Last Menstrual Period Date Ultra Sound Weeks Gestation 0 Eighteen To Twenty Week Corona Update Ultra Sound Date Fundal Height At Umbil Quickening Date Ultra Sound Latest Weeks Gestation Final Corona Confirmed By Final Corona Confirmed Date Final Corona Date Ultra Sound Latest Days Gestation 0 0 Menstrual History Last Menstrual Date Menses Monthly On Bcp Conception Prior Menses Frequency Hcg Plus Date Menarche Onset Age Delivery Information Delivery Date Delivery Type Labor Anesthesia Weeks Gestation Incision Type Labor Labor Length Hrs Delivered By Post Complications Tubal Sterilization Discharge Date Comments 7 stillbor n Discharge Information Feeding Method Contraceptive Method Maternal HG B and HCT Levels Ob Episode Information Episode Created Date Number of Fetuses Patient Bloodtype Patient rh Status Prepregnancy Weight lbs Domestic Partner Domestic Partner Phone Father Name Warehouseman Status 06/07/19 21 1 CLOSED Fetus Data First Name Last Name Admitted to NICU Weight (g) Sex Living Outcome Pediatric Complications Fetus ID Race Codes Race Delivery Type M Full Term [id number] Corona Calculation Initial Corona Date Initial Exam Date Initial Exam Provider Initial Ultrasound Date Last Menstrual Period Date Ultra Sound Weeks Gestation 0 Eighteen To Twenty Week Corona Update Ultra Sound Date Fundal Height At Umbil Quickening Date Ultra Sound Latest Weeks Gestation Final Corona Confirmed By Final Corona Confirmed Date Final Corona Date Ultra Sound Latest Days Gestation 0 0 Menstrual History Last Menstrual Date Menses Monthly On Bcp Conception Prior Menses Frequency Hcg Plus Date Menarche Onset Age Delivery Information Delivery Date Delivery Type Labor Anesthesia Weeks Gestation Incision Type Labor Labor Length Hrs Delivered By Post Complications Tubal Sterilization Discharge Date Comments 9 Discharge Information Feeding Method Contraceptive Method Maternal HG B and HCT Levels Ob Episode Information Episode Created Date Number of Fetuses Patient Bloodtype Patient rh Status Prepregnancy Weight lbs Domestic Partner Domestic Partner Phone Father Name Warehouseman Status 06/07/19 21 1 CLOSED Fetus Data First Name Last Name Admitted to NICU Weight (g) Sex Living Outcome Pediatric Complications Fetus ID Race Codes Race Delivery Type F Full Term [id number] Vaginal Corona Calculation Initial Corona Date Initial Exam Date Initial Exam Provider Initial Ultrasound Date Last Menstrual Period Date Ultra Sound Weeks Gestation 0 Eighteen To Twenty Week Corona Update Ultra Sound Date Fundal Height At Umbil Quickening Date Ultra Sound Latest Weeks Gestation Final Corona Confirmed By Final Corona Confirmed Date Final Corona Date Ultra Sound Latest Days Gestation 0 0 Menstrual History Last Menstrual Date Menses Monthly On Bcp Conception Prior Menses Frequency Hcg Plus Date Menarche Onset Age Delivery Information Delivery Date Delivery Type Labor Anesthesia Weeks Gestation Incision Type Labor Labor Length Hrs Delivered By Post Complications Tubal Sterilization Discharge Date Comments 1 Discharge Information Feeding Method Contraceptive Method Maternal HG B and HCT Levels Ob Episode Information Episode Created Date Number of Fetuses Patient Bloodtype Patient rh Status Prepregnancy Weight lbs Domestic Partner Domestic Partner Phone Father Name Warehouseman Status 06/07/19 21 1 CLOSED Fetus Data First Name Last Name Admitted to NICU Weight (g) Sex Living Outcome Pediatric Complications Fetus ID Race Codes Race Delivery Type F Full Term [id number] Corona Calculation Initial Corona Date Initial Exam Date Initial Exam Provider Initial Ultrasound Date Last Menstrual Period Date Ultra Sound Weeks Gestation 0 Eighteen To Twenty Week Corona Update Ultra Sound Date Fundal Height At Umbil Quickening Date Ultra Sound Latest Weeks Gestation Final Corona Confirmed By Final Corona Confirmed Date Final Corona Date Ultra Sound Latest Days Gestation 0 0 Menstrual History Last Menstrual Date Menses Monthly On Bcp Conception Prior Menses Frequency Hcg Plus Date Menarche Onset Age Delivery Information Delivery Date Delivery Type Labor Anesthesia Weeks Gestation Incision Type Labor Labor Length Hrs Delivered By Post Complications Tubal Sterilization Discharge Date Comments 2 Discharge Information Feeding Method Contraceptive Method Maternal HG B and HCT Levels
[2024-07-28 13:41] LABS: Carcinoembryonic Antigen 0.8 ng/mL (0.0-3.0)
[2024-07-29 08:04] LABS: CA 15-3 15 U/mL (<32)
== END 2024-07-28 11:34 | disposition home or self-care (01) ==
LOC: ANHLAB 11:34
PROVIDERS: Visit Provider Internal Medicine Hematology & Oncology
DX: C18.2 Malignant neoplasm of ascending colon (principal); C50.911 Malignant neoplasm of unspecified site of right female breast; Z17.0 Estrogen receptor positive status [ER+]
CPT/HCPCS: 36415; 80053; 82378; 85025; 86300

== ENCOUNTER 2024-11-24 13:15 | Outpatient (CLI) | payer MEDICARE, OTHER, SELFPAY ==
[2024-11-24 13:33] LABS: Basophils Absolute Auto 0.1 K/mm3 (0.0-0.1); Basophils Percent Auto 1.6 % (0.2-1.2); Eosinophils Absolute Auto 0.2 K/mm3 (0-0.3); Eosinophils Percent Auto 3.8 % (0-4.4); Hematocrit 34.1 % (37.0-47.0); Hemoglobin 11.7 g/dL (12.0-15.0); Immature Granulocyte Absolute 0.01 K/mm3 (0.00-0.031); Immature Granulocyte Percent A 0.2 % (0-0.5); Lymphocytes Absolute Auto 0.99 K/mm3 (0.9-3.2); Mean Corpuscular HGB Conc 34.3 g/dl (32-36); Mean Corpuscular Hemoglobin 31.8 pg (26-34); Mean Corpuscular Volume 92.7 fl (80-100); Mean Platelet Volume 9.4 fl (7.4-10.4); Monocytes Absolute Auto 0.5 K/mm3 (0.1-0.6); Monocytes Percent Auto 10.9 % (2.6-8.5); Neutrophils Absolute Auto 2.8 K/mm3 (1.3-6.7); Neutrophils Percent Auto 61.5 % (45.5-73.1); Platelet Count Result 197 k/mm3 (150-375); Red Blood Count 3.68 M/mm3 (4.2-5.4); Red Cell Distribution Width 13.2 % (11.5-14.5); White Blood Count 4.5 K/mm3 (4.5-10.0)
[2024-11-24 16:25] LABS: Alanine Aminotransferase 19 U/L (6-35); Albumin Level 4.1 g/dL (3.5-5.1); Alkaline Phosphatase 140 U/L (38-126); Anion Gap 8 mmol/L (4-12); Aspartate Amino Transferase 46 U/L (14-36); Bilirubin,Total 0.3 mg/dL (0.2-1.3); Blood Urea Nitrogen 29 mg/dL (7-17); Calcium 10.1 mg/dL (8.4-10.2); Carbon Dioxide 23 mmol/L (22-30); Chloride 105 mmol/L (98-107); Estimated Glomerular Filt Rate 59; Glucose 99 mg/dL (65-110); Potassium 4.6 mmol/L (3.4-5.0); Sodium 136 mmol/L (137-145); Total Protein 7.4 g/dL (6.3-8.2)
[2024-11-24 16:54] LABS: Carcinoembryonic Antigen 2.3 ng/mL (0.0-3.0)
[2024-11-26 06:13] LABS: CA 15-3. 12 U/mL (<32)
== END 2024-11-24 13:16 | disposition home or self-care (01) ==
LOC: ANHLAB 13:17
PROVIDERS: PCP Nurse Practitioner Family; Visit Provider Internal Medicine Hematology & Oncology
DX: C50.911 Malignant neoplasm of unspecified site of right female breast (principal); C18.2 Malignant neoplasm of ascending colon; Z17.0 Estrogen receptor positive status [ER+]
CPT/HCPCS: 36415; 80053; 82378; 85025; 86300

== ENCOUNTER 2025-03-27 10:22 | Outpatient (CLI) | payer MEDICARE, OTHER, SELFPAY ==
--- OUTSIDE RECORDS SUMMARY | 2025-03-27 10:41 | XMS_ITS | Clinical Summary ---
Author Organization [facility] Address [address] [place] [address] Care Team Providers Care Shoveler Name Role Phone Tamika Curry Primary Care Provider [phone] Source Comments [facility],non-owned Affiliates and Associated Physician Practices is amultiple site organization consisting of ambulatory clinics and hospital sitesin [place], [place], [place] and [place]. This disclosure is being madepursuant to the Care Everywhere program and may not contain all information available regarding this patient. Last updated 18.[facility] Allergies Active Allergy Reactions Criticality Noted Date Comments Morphine Shortness of Breath High 02/24/2019 Medications * Be aware that medications may not be up to date on this document. Alwaysverify current medications with the patient. potassium chloride (KLOR-CON) 20 MEQ packet Take 20 mEq by mouth once daily Active amLODIPine (NORVASC) 5 MG tablet Take 5 mg by mouth once daily Active Sotalol HCl AF (SOTALOL, AF,) 80 MG tablet Take by mouth 2 times daily Active metoprolol succinate XL 24hr (TOPROL XL) 200 MG tablet Take 200 mg by mouth once daily Active amLODIPine (NORVASC) 5 MG tablet Take 5 mg by mouth once daily Active warfarin (COUMADIN) 5 MG tablet Take 5 mg by mouth Active Social History Tobacco Use Types Packs/Day Years Used Date Smoking Tobacco: Never Smokeless Tobacco: Never Comments No Sex and Gender Information Value Date Recorded Sex Assigned at Not on file Legal Sex Female 11:08 AM RESEARCH CHEMICAL ENGINEER Gender Identity Not on file Sexual Orientation Not on file Last Filed Vital Signs Vital Sign Reading Time Taken Comments Blood Pressure 110/72 04/19/2020 3:44 PM RESEARCH CHEMICAL ENGINEER Pulse 84 04/19/2020 3:44 PM RESEARCH CHEMICAL ENGINEER Temperature 37.1 C (98.7 F) 04/19/2020 3:44 PM RESEARCH CHEMICAL ENGINEER Respiratory Rate 14 04/19/2020 3:44 PM RESEARCH CHEMICAL ENGINEER Oxygen Saturation 96% 04/19/2020 3:44 PM RESEARCH CHEMICAL ENGINEER Inhaled Oxygen Concentration - - Weight 92.1 kg (203 lb) 04/19/2020 3:44 PM RESEARCH CHEMICAL ENGINEER Height 154.9 cm (5' 1) 04/19/2020 3:44 PM RESEARCH CHEMICAL ENGINEER Body Mass Index 38.36 04/19/2020 3:44 PM RESEARCH CHEMICAL ENGINEER Plan of Treatment Health Maintenance Due Date Last Done Comments BONE DENSITY TESTING 1955 COLOGUARD (AGES 45-75) - COL ON CA SCREENING 1955 COLON MONITORING 1953 COLONOSCOPY - COLON CA SCREENING 1953 CT COLONOGRAPHY - COLON CA SCREENING 1955 Colorectal Cancer Screening 1953 FIT - COLON CA SCREENING 1953 FLEX SIG - COLON CA SCREENING 1953 LIPID TESTING 1955 MAMMOGRAM 1953 HEPATITIS C SCREENING 02/28/1971 DTAP/TDAP/TD VACCINES (1 - Tdap) 1972 PNEUMOCOCCAL VACCINE 50+ (1 of 1 - PCV) 2003 ZOSTER VACCINE (1 of 2) 2003 SCREENING FOR DIABETES 02/24/2019 DEPRESSION SCREENING 06/04/2024 COVID-19 VACCINE (1 - 2023-2 5 season) 2025 INFLUENZA VACCINE (#1) 2025 Respiratory Syncytial Virus (RSV) Vaccine Pt: or over 60 yrs (1 - 1-dose 75+ series) 2028 HEPATITIS B VACCINE Aged Out No longe r eligible based on patient's age to complete this topic HIB VACCINE Aged Out No longer eligi ble based on patient's age to complete this topic HPV VACCINE Aged Out No longer eligi ble based on patient's age to complete this topic MENINGOCOCCAL (Group B) VACC INE SHARED DECISION-MAKING Aged Out No longer eligibl e based on patient's age to complete this topic MENINGOCOCCAL GROUPS A/C/Y/W VACCINE Aged Out No longer eligible b ased on patient's age to complete this topic Insurance MEDICARE [place] Member Subscriber Plan / Payer (Ef fective 2018-Present) Name:Domingo Anglin Relation to Subscriber:Self Name:Domingo Anglin Payer ID:[id number] (NAIC) Type:PPO Address: [address] [place] Care Teams Shoveler Relationship Specialty Start Date End Date Tamika Curry APRN-CNP [address] [place] [address] PCP - General 05/04/22
--- OUTSIDE RECORDS SUMMARY | 2025-03-27 10:41 | XMS_ITS | Clinical Summary ---
Author Organization [facility] [address] Address [address] [place] [address] Care Team Providers Care Sewing Machine Operator Floorperson Name Role Phone Jessica Ponce NP Unavailable Tamika Curry COMMUNITY DEVELOPMENT AIDE Primary Care Provider [phone] Mynor Briones MD Unavailable Allergies Active Allergy Reactions Criticality Noted Date Comments Erythromycin Lisinopril Morphine Anaphylaxis,Shortness of breath High 05/04 Nebivolol Angioedema High Medications Advair Diskus 250-50 mcg/dose diskus inhaler Inhale 1 puff 2 (two) times a day 02/02/2021 Active aspirin 81 mg enteric coated tablet 05/31/2022 Active apixaban (Eliquis) 5 mg tablet Take 1 tablet (5 mg total) by mouth 2 (two) times a day 180 tablet 3 12/25/2023 Active metoprolol tartrate (LOPRESSOR) 25 mg immediate release tablet TAKE 1/2 TABLET(12.5 MG) BY MOUTH TWICE DAILY 90 tablet 1 04/16/2024 Active Active Problems Problem Noted Date Diagnosed Date 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 Persistent atrial fibrillation 07/15/2020 Overview (07/15/2020): Added automatically from request for surgery [id number] Atrial fibrillation (CMS/HCC) [I48.91] 7 [facility] (current) use of anticoagulants [Z79.0 1] 11/06/2016 Surgical History Surgery Date Site/Laterality Comments PERICARDIAL WINDOW 08/27/2020 Medical History Medical History Date Comments Atrial fibrillation (HCC) Cancer (HCC) 2018 Hx of Colon Canc er Cardiomegaly Severe obesity (BMI >= 40) (HCC) Acute pericardial effusion 08/27/2020 durin g ablation procedure Neuropathy Family History Medical History Relation Name Comments Other Father 2 in Line of Duty (Owner Consulting Engineer); Cause of : in Line of Duty (Owner Consulting Engineer) Stroke Mother 2 Stroke; Cause o f : Stroke Relation Name Status Comments Father 1 (Age 26) Father 2 Mother 1 (Age 61) Mother 2 Social History Tobacco Use Types Packs/Day Years Used Date Smoking Tobacco: Never Smokeless Tobacco: Never Tobacco Cessation:Counseling Given: Not Answered Alcohol Use Standard Drinks/Week Comments No 0 (1 standard drink = 0.6 oz pur e alcohol) AUDIT-C Answer Date Recorded Q1: How often do you have a drink containing alc ohol? Never 10/13/2021 Average Number of Drinks Not on file 022 Q3: How often do you have si x or more drinks on one occasion? Never 10/13/2021 Personal Safety Answer Date Recorded Getting School Help Needed Not on file 06/23 Comments No Sex and Gender Information Value Date Recorded Sex Assigned at Not on file Legal Sex Female 8:58 PM TRANSIT BUS OPERATOR Gender Identity Not on file Sexual Orientation Not on file Obstetrics History Last Filed Vital Signs Vital Sign Reading Time Taken Comments Blood Pressure 116/72 11/08/2023 8:34 AM CDT Pulse 78 11/08/2023 8:34 AM CDT Temperature 36.8 C (98.3 F) 07/27/2023 3:19 PM TRANSIT BUS OPERATOR Respiratory Rate 20 07/27/2023 3:19 PM TRANSIT BUS OPERATOR Oxygen Saturation 97% 11/08/2023 8:34 AM CDT Inhaled Oxygen Concentration - - Weight 88.9 kg (195 lb 14.4 oz) 11/08/2023 8:34 AM CDT Height 154.9 cm (5' 1) 11/08/2023 8:34 AM CDT Body Mass Index 37.01 11/08/2023 8:34 AM CDT Plan of Treatment Health Maintenance Due Date Last Done Comments Breast Cancer Screening-Mammogram 1955 Colon Cancer Screening-Colonoscopy 1953 Depression Screening 1953 Hepatitis C Screening 1953 Osteoporosis Screening-Bone Density Scan 1953 DTaP/Tdap/Td Vaccine (1 - Tdap) 1964 Hepatitis B Screening 1971 Pneumococcal vaccine 65+ (1 of 2 - PCV) 1972 Zoster Vaccine (1 of 2) 2003 Well Visit 65+ 2018 Fall Risk Assessment 06/19/2023 06/19/2022 Covid-19 Vaccine ( - season) 2025, 03/30/2021 Influenza Vaccine (#1) 2025 Medical Devices Implanted Type Area Public Relations Player Device Identifier Shelf Expiration Date Model / Serial / Lot [employer] [id number] System 6-12fr Mvp Venous Closure Vascade - [id number] - [id number] Implanted:Qty : 1 on 03/21/2021 by Mynor Briones MD at [facility] [employer] 01/03/2023 800-612C- 10U / [id number] [id number] / [id number] [employer] [id number] System 6-12fr Mvp Venous Closure Vascade - [id number] - [id number] Implanted:Qty : 1 on 03/21/2021 by Mynor Briones MD at [facility] [employer] 01/03/2023 800-612C- 10U / [id number] [id number] / [id number] [id number] [employer] [id number] System 6-12fr Mvp Venous Closure Vascade - [id number] - [id number] Implanted:Qty : 1 on 03/21/2021 by Mynor Briones MD at [facility] [employer] 01/03/2023 800-612C- 10U / [id number] 09A / [id number] [id number] [employer] [id number] Device Closure Vascade Od5 Fr Femoral Artery - [id number] - [id number] Implanted:Qty : 1 on 03/21/2021 by Mynor Briones MD at [facility] [employer] 11/24/2022 [id number] -[id number] / [id number] / [id number] Vascade Mvp 6-12fr Venous Closure [id number] - [id number] - [id number] Implanted:Qty : 1 on 10/13/2021 by Mynor Briones MD at [facility] [employer] 07/19/2023 800-612C- 10U / [id number] / [id number] [id number] Vascade Mvp 6-12fr Venous Closure [id number] - [id number] - [id number] Implanted:Qty : 1 on 10/13/2021 by Mynor Briones MD at [facility] [employer] 07/11/2023 800-612C- 10U / [id number] 08A / [id number] 08A Vascade Mvp 6-12fr Venous Closure [id number] - [id number] - [id number] Implanted:Qty : 1 on 10/13/2021 by Mynor Briones MD at [facility] [employer] 07/11/2023 800-612C- 10U / [id number] [id number] / [id number] [id number] Vascade Mvp 6-12fr Venous Closure [id number] - [id number] - [id number] Implanted:Qty : 1 on 10/13/2021 by Mynor Briones MD at [facility] [employer] 08/01/2023 800-612C- 10U / [id number] 01B / [id number] Other - See Comments Other - see comments Chest Wall Description:IMPLANTED PORT A CATH Port Other - see comments Right: Chest Insurance MEDICARE [facility] [employer] Sp[employer] O [facility] TRADITIONAL MEDICARE [facility] Advance Directives For more information, please contact: [phone] * Full Code (Latest Code Status on File) Date Activated Date Inactivated Comments 09/08/2021 7:42 AM 09/09/2021 4:34 AM * Full Code Date Activated Date Inactivated Comments 08/27/2020 3:17 PM 08/30/2020 5:19 PM * Full Code Date Activated Date Inactivated Comments 05/21/2020 12:35 PM 05/22/2020 4:43 AM Care Teams Sewing Machine Operator Floorperson Relationship Specialty Start Date End Date Tamika Curry NP [address] [place] [address] PCP - General Nurse Practitioner 07/14/20 Jessica Ponce NP Nurse Practitioner Cardiology 05/21/20 Mynor Briones MD [address] [place] [address] Consulting Physician Cardiology 10/13/20
--- OUTSIDE RECORDS SUMMARY | 2025-03-27 10:41 | XMS_ITS | Encounter Summary ---
Author Organization [facility] Address [address] [place] [address] Care Team Providers Care Bakery Clerk Name Role Phone Virgilio Curiel DO Primary Care Provider No, Physician Primary Care Provider [phone] Jessica Ponce INNER TUBE TUBER MACHINE OPERATOR Unavailable Tamika Curry INNER TUBE TUBER MACHINE OPERATOR Primary Care Provider Mynor Briones MD Unavailable [phone] Encounter Details Date Type Department Care Team (Late st Contact Info) Description 09/19/2017 Orders Only [facility] Health Information Management [address] [place] [id number] Scanning, Provider Social History Tobacco Use Types Packs/Day Years Used Date Smoking Tobacco: Never Smokeless Tobacco: Never Alcohol Use Standard Drinks/Week Comments No 0 (1 standard drink = 0.6 oz pur e alcohol) Comments Unknown Sex and Gender Information Value Date Recorded Sex Assigned at Not on file Legal Sex Female 8:58 PM HOB MACHINE OPERATOR Gender Identity Not on file Sexual Orientation Not on file documented as of this encounter Plan of Treatment Not on file documented as of this encounter Procedures Procedure Name Priority Date/Time Associated Diagnosis Comments SCAN - RADIOLOGY/IMAGING 09/19/2017 SCAN - LABS 09/19/2017 documented in this encounter Results * SCAN - LABS (09/19/2017) us Provider Scanning Final Result * SCAN - RADIOLOGY/IMAGING (09/19/2017) Anatomical Region Laterality Modality Other us Provider Scanning Edited Result - Final documented in this encounter Visit Diagnoses Not on filedocumented in this encounter Care Teams Bakery Clerk Relationship Specialty Start Date End Date Virgilio Curiel DO PCP - General 09/01/16 05/21/19 No, Physician PCP - General 05/22/19 07/13/20 Tamika Curry NP [address] [place] [address] PCP - General Nurse Practitioner 07/14/20 Jessica Ponce NP Nurse Practitioner Cardiology 05/21/20 Mynor Briones MD [address] [place] [address] Consulting Physician Cardiology 10/13/20 documented as of this encounter
--- OUTSIDE RECORDS SUMMARY | 2025-03-27 10:41 | XMS_ITS | Clinical Summary ---
Author Organization [facility] Address [address] [place] [address] Phone Care Team Providers Care Health And Wellness Advisor Name Role Phone Tamika Curry Primary Care Provider [phone] Allergies Active Allergy Reactions Criticality Noted Date Comments Erythromycin 09/28/2021 Lisinopril 09/28/2021 Morphine Anaphylaxis,Shortness of breath High 05/04 Nebivolol Angioedema High 05/13/2018 Medications Eliquis 5 MG tablet 09/25/2021 Active albuterol HFA (ProAir HFA) 108 (90 Base) MCG/ACT inhaler 90 mcg 08/09/2016 Act ana Advair Diskus 250-50 MCG/DOSE diskus inhaler 07/24/2021 Acti ve Multiple Vitamin (Daily Vites) tablet Take 1 tablet by mouth daily Active calcium gluconate 500 MG tablet Take 500 mg by mouth 1 (one) time each day Active amLODIPine (NORVASC) 5 MG tablet Take 1 tablet (5 mg total) by mouth 1 (one) time each day 90 tablet 3 05/22/2022 Active Active Problems Problem Noted Date Diagnosed Date Essential hypertension 09/28/2021 Chronic kidney disease stage 3A 09/28/2021 Malignant neoplasm of ascending colon 05/13/2018 Atrial fibrillation 11/06/2016 Family History Medical History Relation Comments Kidney disease Neg Hx Social History Tobacco Use Types Packs/Day Years Used Date Smoking Tobacco: Never Smokeless Tobacco: Never Alcohol Use Standard Drinks/Week Comments Not Currently 0 (1 standard drink = 0.6 oz pur e alcohol) Comments Unknown Sex and Gender Information Value Date Recorded Sex Assigned at Not on file Legal Sex Female 1:54 PM MDT Gender Identity Not on file Sexual Orientation Not on file Last Filed Vital Signs Vital Sign Reading Time Taken Comments Blood Pressure 152/70 05/22/2022 2:39 PM C SOFTWARE ENGINEER Pulse 60 05/22/2022 2:39 PM C SOFTWARE ENGINEER Temperature 36.3 C (97.4 F) 05/22/2022 2:39 PM C SOFTWARE ENGINEER Respiratory Rate - - Oxygen Saturation - - Inhaled Oxygen Concentration - - Weight 82.6 kg (182 lb) 05/22/2022 2:39 PM C SOFTWARE ENGINEER Height 154.9 cm (5' 1) 05/22/2022 2:39 PM C SOFTWARE ENGINEER Body Mass Index 34.39 05/22/2022 2:39 PM C SOFTWARE ENGINEER Plan of Treatment Health Maintenance Due Date Last Done Comments Pneumococcal PPSV23/PCV13 65 + Years / Low and Medium Risk (1 of 2 - PCV) 2003 Influenza Vaccine (#1) 2025 Insurance Care Teams Health And Wellness Advisor Relationship Specialty Start Date End Date Tamika Curry [address] [place] [address] PCP - General 09/28/21
--- OUTSIDE RECORDS SUMMARY | 2025-03-27 10:41 | XMS_ITS | Encounter Summary ---
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 Gender Identity Not on file Sexual Orientation Not on file documented as of this encounter Plan of Treatment Not on file documented as of this encounter Procedures Procedure Name Priority Date/Time Associated Diagnosis Comments CARDIOLOGY DOCUMENT SCAN 07/15/2024 documented in this encounter Results * Cardiology Document Scan (07/15/2024) Anatomical Region Laterality Modality Other us Provider Scanning CV CARDIAC SERVICES PROCEDURES Final Result documented in this encounter Visit Diagnoses Not on filedocumented in this encounter Care Teams Medical Terminologist Relationship Specialty Start Date End Date Curry, Tamika Justin NP [address] [place] [address] PCP - General Nurse Practitioner 07/14/20 Jessica Ponce NP Nurse Practitioner Cardiology 05/21/20 Mynor Briones MD [address] [place] [address] Consulting Physician Cardiology 10/13/20 documented as of this encounter
--- OUTSIDE RECORDS SUMMARY | 2025-03-27 10:41 | XMS_ITS | Encounter Summary ---
Author Organization [facility] Address [address] [facility] [address] [place] [address] Care Team Providers Care Croze Machine Operator Name Role Phone Virgilio Curiel DO Primary Care Provider No, Physician Primary Care Provider [phone] DESIGN DRAFTSPERSON Unavailable Tamika Curry ROAD DESIGN DRAFTSPERSON Primary Care Provider [phone] Mynor Briones MD Unavailable Encounter Details Date Type Department Care Team (Late st Contact Info) Description 07/21/2016 Orders Only [facility] ProviderKassie MD [address] [place] [address] Social History Tobacco Use Types Packs/Day Years Used Date Smoking Tobacco: Never Assessed Comments Unknown Sex and Gender Information Value Date Recorded Sex Assigned at Not on file 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 Historical Provider CV CARDIAC SERVICES PROCE DURES Final Result documented in this encounter Visit Diagnoses Not on filedocumented in this encounter Care Teams Croze Machine Operator Relationship Specialty Start Date End Date Virgilio Curiel DO PCP - General 09/01/16 05/21/19 No, Physician PCP - General 05/22/19 07/13/20 Tamika Curry NP [address] [place] [address] PCP - General Nurse Practitioner 07/14/20 Jessica Ponce NP Nurse Practitioner Cardiology 05/21/20 Mynor Briones MD [address] [place] [address] Consulting Physician Cardiology 10/13/20 documented as of this encounter
--- OUTSIDE RECORDS SUMMARY | 2025-03-27 10:41 | XMS_ITS | Encounter Summary ---
Author Organization [facility] Address [address] [facility] [address] [place] [address] Care Team Providers Care Toxics Program Officer Name Role Phone Virgilio Curiel DO Primary Care Provider No, Physician Primary Care Provider [phone] Jessica Ponce MILK VENDOR Unavailable Tamika Curry MILK VENDOR Primary Care Provider Mynor Briones MD Unavailable Encounter Details Date Type Department Care Team (Late st Contact Info) Description 07/22/2016 Orders Only [facility] ProviderKassie MD [address] [place] [address] Social History Tobacco Use Types Packs/Day Years Used Date Smoking Tobacco: Never Assessed Comments Unknown Sex and Gender Information Value Date Recorded Sex Assigned at Not on file 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 Historical Provider CV CARDIAC SERVICES PROCE DURES Final Result documented in this encounter Visit Diagnoses Not on filedocumented in this encounter Care Teams Toxics Program Officer Relationship Specialty Start Date End Date Virgilio Curiel DO PCP - General 09/01/16 05/21/19 No, Physician PCP - General 05/22/19 07/13/20 Tamika Curry NP [address] [place] [address] PCP - General Nurse Practitioner 07/14/20 Jessica Ponce NP Nurse Practitioner Cardiology 05/21/20 Mynor Briones MD [address] [place] [address] Consulting Physician Cardiology 10/13/20 documented as of this encounter
[2025-03-27 10:46] LABS: Hematocrit 35.5 % (37.0-47.0); Hemoglobin 11.9 g/dL (12.0-15.0); Immature Granulocyte Percent A 0.2 % (0-0.5); Lymphocytes Absolute Auto 0.77 K/mm3 (0.9-3.2); Mean Corpuscular HGB Conc 33.5 g/dl (32-36); Mean Corpuscular Hemoglobin 31.2 pg (26-34); Mean Corpuscular Volume 93.2 fl (80-100); Nucleated Red Blood Cells Absolute Auto 0.000 K/mm3 (0.0-0.012); Nucleated Red Blood Cells Perc 0.0 % (0.0-0.2); Platelet Count Result 176 k/mm3 (150-375); Red Blood Count 3.81 M/mm3 (4.2-5.4); White Blood Count 4.2 K/mm3 (4.5-10.0)
[2025-03-27 13:43] LABS: Alanine Aminotransferase 16 U/L (6-35); Albumin Level 4.1 g/dL (3.5-5.1); Alkaline Phosphatase 126 U/L (38-126); Anion Gap 9 mmol/L (4-12); Aspartate Amino Transferase 40 U/L (14-36); Bilirubin,Total 0.9 mg/dL (0.2-1.3); Blood Urea Nitrogen 22 mg/dL (7-17); Calcium 9.5 mg/dL (8.4-10.2); Carbon Dioxide 21 mmol/L (22-30); Chloride 105 mmol/L (98-107); Estimated Glomerular Filt Rate > 60; Glucose 96 mg/dL (65-110); Potassium 4.2 mmol/L (3.4-5.0); Sodium 135 mmol/L (137-145); Total Protein 7.2 g/dL (6.3-8.2)
[2025-03-27 14:18] LABS: Carcinoembryonic Antigen 2.7 ng/mL (0.0-3.0)
== END 2025-03-27 10:23 | disposition home or self-care (01) ==
LOC: ANHLAB 10:22
PROVIDERS: PCP Nurse Practitioner Family; Visit Provider Internal Medicine Hematology & Oncology
DX: C18.2 Malignant neoplasm of ascending colon (principal); C50.911 Malignant neoplasm of unspecified site of right female breast; Z17.0 Estrogen receptor positive status [ER+]
CPT/HCPCS: 36415; 80053; 82378; 85025; 86300

== ENCOUNTER 2025-04-23 01:30 | Day surgery (SDC) | payer MEDICARE, OTHER, SELFPAY ==
[2025-04-16 14:27] VITALS: BMI 29.1
[2025-04-23 07:44] VITALS: BP 137/101; PULSE 109; RESP 18; TEMP 36.1; O2SAT 100
--- NOTE | 2025-04-23 08:10 | WPDANESEPPF ---
Anes - Initial Pre Proc Eval Procedure: Operation Date: 04/23/25 09:00 Proposed Procedures p Screening Colonoscopy - Wei Rowley MD Date/Time: 04/23/25 08:10 Surgeon: Wei Rowley MD Pre Op Diagnosis: Personal history of colon polyps, unspecified Patient Data Age: 70 Gender: F Height: 1.57 m Weight: 71.7 kg Last Vital Signs Temp 36.1 C L 04/23/25 07:44 Pulse 109 H 04/23/25 07:44 Resp 18 04/23/25 07:44 BP 137/101 H 04/23/25 07:44 Pulse Ox 100 04/23/25 07:44 O2 Del Method Room Air 04/23/25 07:44 Allergies Allergy/AdvReac Type Severity Reaction Status Date / Time Macrolide Antibiotics Allergy Severe Swelling Verified 04/23/25 07:43 of Lip/Tongue/Throat morphine Allergy Severe Anaphylaxis Verified 04/23/25 07:43 erythromycin base Allergy Intermediate Hives Verified 04/23/25 07:43 hydrocodone AdvReac Mild Drowsy Verified 04/23/25 07:43 Home Medications ?Medication ?Instructions ?Recorded ?Confirmed ?Type apixaban 5 mg tablet (Eliquis) 5 mg PO BID 04/13/22 04/23/25 History vitamin B complex 1 cap PO DAILY 04/13/22 04/23/25 History cholecalciferol (vitamin D3) 50 50 mcg PO DAILY 11/19/23 04/23/25 History mcg (2,000 unit) capsule albuterol sulfate 90 mcg/actuation 1 inh inhalation QID PRN shortness 12/17/23 04/16/25 Rx aerosol inhaler of breath or wheezing #6.7 grams metoprolol succinate 25 mg 25 mg PO ONCE 11/17/24 04/23/25 History tablet,extended release 24 hr sertraline 25 mg tablet 25 mg PO DAILY 11/17/24 04/23/25 History tamoxifen 20 mg tablet 20 mg PO DAILY 11/17/24 04/23/25 History levothyroxine 25 mcg tablet 25 mcg PO DAILY 04/16/25 04/23/25 History Patient hx anesthesia problems: none Family hx anesthesia problems: none Results Review: All pre-operative results and documents have been reviewed as part of the pre-operative evaluation. PMFSH Past Medical History Medical History Breast cancer Chronic kidney disease, stage 3 Peripheral neuropathy due to chemotherapy Gastroesophageal reflux disease Chronic anticoagulation Paroxysmal atrial fibrillation Status post cardioversion and cardiac ablation x3, one which was complicated by a tear in the pericardium which was repaired. Colon cancer (04/2018) Status post partial colectomy and chemotherapy. Hypertension Surgical History Surgical History History of cardiac radiofrequency ablation X3 per Dr. Briones at [facility]. History of incision of pericardium Cardiac ablation complicated by pericardial tear, repaired by CT surgeon. History of ovarian cystectomy Benign dermoid cyst. History of 2 sections History of bilateral cataract extraction History of partial colectomy (04/2018) For stage I colon cancer of the ascending colon. Family History Family History Mother Family history of schizophrenia Hypertension Sibling Hypertension Father Patient's father is Social History Social History Social History: Surrogate medical decision maker: Mandy Paula, daughter. Code status: Full code. Smoking status: Never smoker Second hand tobacco smoke exposure: No Alcohol intake: never Substance use: never Substance use type: does not use Do You Feel Safe in your Home?: Yes Lack of Transportation: No Lack of Food: Never True Current Housing: I Have Housing Concerned About Future Housing: No Difficulty Paying Gas/Electric Bills: No Difficulty Paying for Meds: No Currently Unemployed: No Education: Associate Degree Difficulty w/ Childcare or Family Care: No Living arrangements: alone Additional living arrangements comments: Lives in [place]. 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 patient): Female Spiritual care concerns: No Anes - Eval Final PreProcedure Day of Procedure 04/23/25 08:10 Patient weight: overweight Heart: regular rate and rhythm Lungs: clear to auscultation Airway: Mallampati scale class II Neurological: alert and oriented Last oral intake: >/= 8 hours ASA classification: III Emergent: no Anesthetic plan: proceed Anesthesia type and monitoring: general GIVS and standard monitoring Results Review: All pre-operative results and documents have been reviewed as part of the pre-operative evaluation. Informed Consent: The patient's anesthetic plan and its attendant risks and benefits were discussed with the patient/family/POA. Questions were solicited and answers provided to the satisfaction of the patient/family/POA.
[2025-04-23] MEDS: LACTATED RINGERS 1,000 ML 150 ML IV CONT (08:13)
--- NOTE | 2025-04-23 08:29 | PM.HPGS ---
History of Present Illness History of Present Illness Consent: Risks, benefits, and alternatives have been discussed and questions answered. Patient agrees to proceed with procedure. Chief complaint: Personal history of colon polyps, unspecified Narrative: Linda Swain is a 70 year old female with colon cancer 2018 s/p rt hemicolectomy and chemorx, last colonoscopy 2021 Review of Systems Review of Systems: All systems reviewed & are unremarkable except as noted in HPI and below PMFSH Past Medical History Medical History Breast cancer Chronic kidney disease, stage 3 Peripheral neuropathy due to chemotherapy Gastroesophageal reflux disease Chronic anticoagulation Paroxysmal atrial fibrillation Status post cardioversion and cardiac ablation x3, one which was complicated by a tear in the pericardium which was repaired. Colon cancer (04/2018) Status post partial colectomy and chemotherapy. Hypertension Surgical History Surgical History History of cardiac radiofrequency ablation X3 per Dr. Briones at [facility]. History of incision of pericardium Cardiac ablation complicated by pericardial tear, repaired by CT surgeon. History of ovarian cystectomy Benign dermoid cyst. History of 2 sections History of bilateral cataract extraction History of partial colectomy (04/2018) For stage I colon cancer of the ascending colon. Family History Family History Mother Family history of schizophrenia Hypertension Sibling Hypertension Father Patient's father is Social History Social History Social History: Surrogate medical decision maker: Mandy Paula, daughter. Code status: Full code. Smoking status: Never smoker Second hand tobacco smoke exposure: No Alcohol intake: never Substance use: never Substance use type: does not use Do You Feel Safe in your Home?: Yes Lack of Transportation: No Lack of Food: Never True Current Housing: I Have Housing Concerned About Future Housing: No Difficulty Paying Gas/Electric Bills: No Difficulty Paying for Meds: No Currently Unemployed: No Education: Associate Degree Difficulty w/ Childcare or Family Care: No Living arrangements: alone Additional living arrangements comments: Lives in [place]. 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 patient): Female Spiritual care concerns: No Meds Home Medications and Allergies Home Medications ?Medication ?Instructions ?Recorded ?Confirmed ?Type apixaban 5 mg tablet (Eliquis) 5 mg PO BID 04/13/22 04/23/25 History vitamin B complex 1 cap PO DAILY 04/13/22 04/23/25 History cholecalciferol (vitamin D3) 50 50 mcg PO DAILY 11/19/23 04/23/25 History mcg (2,000 unit) capsule albuterol sulfate 90 mcg/actuation 1 inh inhalation QID PRN shortness 12/17/23 04/16/25 Rx aerosol inhaler of breath or wheezing #6.7 grams metoprolol succinate 25 mg 25 mg PO ONCE 11/17/24 04/23/25 History tablet,extended release 24 hr sertraline 25 mg tablet 25 mg PO DAILY 11/17/24 04/23/25 History tamoxifen 20 mg tablet 20 mg PO DAILY 11/17/24 04/23/25 History levothyroxine 25 mcg tablet 25 mcg PO DAILY 04/16/25 04/23/25 History Allergies Allergy/AdvReac Type Severity Reaction Status Date / Time Macrolide Antibiotics Allergy Severe Swelling Verified 04/23/25 07:43 of Lip/Tongue/Throat morphine Allergy Severe Anaphylaxis Verified 04/23/25 07:43 erythromycin base Allergy Intermediate Hives Verified 04/23/25 07:43 hydrocodone AdvReac Mild Drowsy Verified 04/23/25 07:43 Vital Signs Vital Signs - 24 hr 04/23/25 07:44 Temperature 97 F L Pulse Rate 109 H Respiratory Rate 18 Blood Pressure 137/101 H Pulse Oximetry 100 Oxygen Delivery Room Air Exam Const: General: comfortable and no acute distress HENMT: Face/Nose/Sinus: Normal nares present Eyes: General: appearance normal, both eyes and all related structures Resp: Auscultation: clear to auscultation bilaterally Cardio: Rate: regular rate Rhythm: regular rhythm GI: Inspection: non-distended GI Palp: Yes Soft to palpation Skin: General skin exam: normal color Extrem: General: normal to inspection Psych: Mental Status: mental status grossly normal Assessment and Plan Assessment and plan (1) History of colon cancer: Code(s): Z85.038 - Personal history of other malignant neoplasm of large intestine Status: Acute Assessment and Plan: colonoscopy
[2025-04-23 08:50] VITALS: BP 118/77; PULSE 75; RESP 14; O2SAT 96
[2025-04-23 09:00] VITALS: BP 138/77; PULSE 88; RESP 12; O2SAT 96
[2025-04-23 09:10] VITALS: BP 139/92; PULSE 75; RESP 20; O2SAT 100
== END 2025-04-23 09:30 | disposition home or self-care (01) ==
PROVIDERS: PCP Nurse Practitioner Family; Visit Provider Internal Medicine Gastroenterology
PROC: 0DJD8ZZ Inspection of Lower Intestinal Tract, Via Natural or Artificial Opening Endoscopic (ICD-10-PCS; CPT 45378; principal; 2025-04-23 09:00)
DX: Z08 Encounter for follow-up examination after completed treatment for malignant neoplasm (principal); K64.8 Other hemorrhoids; Z86.0100 Personal history of colon polyps, unspecified; Z85.038 Personal history of other malignant neoplasm of large intestine; Z98.0 Intestinal bypass and anastomosis status; Z90.49 Acquired absence of other specified parts of digestive tract; Z92.21 Personal history of antineoplastic chemotherapy
CPT/HCPCS: 45378; J2003; J2704; J7120